=== PATIENT | male | born 1960 | race Caucasian/White ===

== ENCOUNTER 2024-04-12 10:33 | Emergency (ER) | payer BC, SELFPAY ==
[2024-04-12] VITALS (7 sets, daily range): BP systolic 140–159; BP diastolic 78–93
--- NOTE | 2024-04-12 11:37 | ED.GENMED ---
History of Present Illness
General
Chief Complaint: Chest Pain
Source: patient
Time Seen by Provider: 04/12/24 11:09
Travel History
Have you had any contact with someone who has COVID-19?: No
Do you have any symptoms of coronavirus? Fever > 100 degrees, chills, cough, shortness of breath, sore throat, loss of taste or smell, muscle aches, or headache?: No
History of Present Illness
History of Present Illness:
64-year-old male with history of A-fib/flutter status post ablation, CAD and recurrent pneumonia presents with onset of cough and hemoptysis with chest pain or shortness of breath starting yesterday getting worse today. He is not currently
anticoagulated. He denies fevers or chills. He states this feels similar to his prior pneumonia that he had in the past but the pain and shortness of breath is new. He is followed by pulmonology here as well as cardiology [facility]. He notes a recent car trip back and forth to [place]. No leg swelling or calf pain. No abdominal pain nausea or vomiting. No other complaints at this time
Past History
Past History
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
Social History
Tobacco: Smoker
Alcohol: Daily
Drug: None
Personal:
Living: with family
Family History
Family History: Other
Phy Exam
Physical Exam
Physical Exam:
General: Well-appearing male no acute respiratory distress
HEENT: Normocephalic atraumatic
Lungs: Clear no obvious wheeze or rales
Heart: Irregular rate and rhythm
Abdomen soft nontender nondistended no guarding or rebound
Extremities: No cyanosis or edema
Scores
[id number] Score for Afib Stroke Risk
Age in Years (65=0, 65-74=1, >/=75=2): <65
Sex (Female=+1): Male
Congestive Heart Failure History (Yes=+1): No
Hypertension History (Yes=+1): Yes
Stroke/TIA/Thromboembolism History (Yes=+2): No
Vascular Disease History (Yes=+1): Yes
Diabetes Mellitus (Yes=+1): No
Score: 2
Anticoagulation Recommendations: Recommend anticoagulation (as validated in nonvalvular fib)
Heart Score for Chest Pain Patients
STEMI patient?: No
History: Slightly or Non-Suspicious
ECG: Normal
Age: >45 - <65 years
Risk Factors: >/= 3 Risk Factors or History of CAD
Troponin: </= Normal Limit
Heart Score for Chest Pain Patients: 3
Heart Score Risk: 2.5% MACE over next 6 weeks
Course
Orders/Labs/Results
Orders:
Orders
04/12/24 10:36
Electrocardiogram (*1) Urgent
Reason for Study: Chest Pain
04/12/24 10:37
EKG- Treatment ONCE
04/12/24 11:37
CT Chest Pe Study Urgent
Comment:
Reason For Exam: chest pain, sob, hemoptysis
04/12/24 11:49
Complete Blood Count/With Diff Urgent
Comprehensive Metabolic Panel Urgent
NT-proBNP Urgent
Troponin I Urgent
Abnormal Lab Results
04/12/24
11:49
RBC 4.63 L 10^6/uL
(4.70-6.10)
MCH 32.6 H pg
(27.0-31.0)
MPV 10.7 H fL
(7.4-10.4)
Absolute Neuts (auto) 7.8 H 10^3/uL
(1.4-6.5)
Absolute Monos (auto) 1.1 H 10^3/uL
(0.1-0.6)
Lymphocytes % 13.1 L %
(20.5-51.1)
Monocytes % 10.2 H %
(1.7-9.3)
BUN 25 H mg/dl
(9-20)
04/12/24 11:49
04/12/24 11:49
Vital Signs
Initial and Last Documented VS:
Initial Vital Signs
Temp Pulse Resp BP Pulse Ox
97.7 F 56 20 156/85 97
04/12/24 10:40 04/12/24 10:40 04/12/24 10:40 04/12/24 10:40 04/12/24 10:40
Last Documented Vital Signs
Temp Pulse Resp BP Pulse Ox
97.7 F 108 23 159/84 96
04/12/24 10:40 04/12/24 15:00 04/12/24 15:15 04/12/24 15:00 04/12/24 15:15
MDM/Problems Addressed
Differential Diagnosis Includes:
Chest pain, shortness of breath hemoptysis. Question CAD versus PE versus pneumonia
Reviewed prior medical records. Patient does have complicated cardiac history as well as recurrent pneumonia. EKG shows atrial flutter with a variable block. Will check labs. CT PE study pending. Not hypoxic currently
*Critical Care Note
Total Time (30-74mins, 75-104mins- exclusive of procedures): Not Applicable
Update Note
Update Note:
PE study negative for pulmonary embolism but demonstrates groundglass opacity at the right base consider underlying pneumonia or pneumonitis. Of note, patient has atrial fibrillation/flutter on exam. His rate is around 110. Blood pressure 150s
over 90s. Patient has ability increase his beta-jason which he has discussed with his synthetic cloth binding cutter in the past. He will do this to help control his rate. He is not currently anticoagulated and [id number] 2 score is a 2. Will restart the
patient on Xarelto. Will start him on Levaquin and prednisone for his pneumonitis as well. Attempted to call the patient's synthetic cloth binding cutter at [facility] however there was no ability to talk to them directly. No indication for
admission to the hospital as he is in no acute distress. Discharged to follow-up with pulmonology and cardiology
ED Attending Note
-
Portions of this chart may have been created with voice recognition software.� Occasional wrong word or��sound alike� substitutions may have occurred due to the inherent limitations of voice recognition software.
Discharge Plan
Departure
Patient Disposition: Home (Routine Discharge)
Date of Disposition: 04/12/24
Time of Disposition: 15:46
Patient with high blood pressure during this ER visit?: No
Discharge Problem:
Pneumonia, Atrial fibrillation
Prescriptions:
New
levofloxacin 750 mg tablet
750 mg PO DAILY 7 Days Qty: 7 0RF
prednisone 20 mg tablet
40 mg PO DAILY 5 Days Qty: 10 0RF
Xarelto 20 mg tablet
20 mg PO DAILY Qty: 30 0RF
No Action
atorvastatin 40 mg Tablet
40 mg PO QPM
Patient Comments:
04/12/2024, last filled on 09/28/2023 for 90-day supply per pharmacy. Pt. states to be using his mother-in law's extra supply.
Theragen Tablet
1 tab PO DAILY
clopidogrel 75 mg Tablet
75 mg PO DAILY
aspirin 81 mg Tablet,Delayed Release (Dr/Ec)
81 mg PO DAILY
dorzolamide-timolol 22.3-6.8 mg/mL Drops
1 drp BOTH EYES BID
metoprolol succinate 25 mg Tablet Extended Release 24 Hr
25 mg PO Q12H
Visbiome 112.5 billion cell Capsule
1 cap PO DAILY
candesartan-hydrochlorothiazid 32-25 mg Tablet
1 tab PO DAILY
omega 0-rkv-hxe-fish oil [Fish Oil] 1,200 (144-216) mg Capsule
1 cap PO TID
Referrals:
Jacinta Kenyon MD [Family Provider] -
Activity Restrictions/Additional Instructions:
Stop aspirin. Start Xarelto and continue Plavix. Use Levaquin and prednisone as directed. Increase your beta-jason as needed to control your heart rate as you have done previously. Please follow-up with your insulation cutter and synthetic cloth binding cutter
closely. Return if needed otherwise
Interventions
Interventions:
*Risk Screen - Suicide Last Done: 04/12/24 10:40
*General Assessment Last Done: 04/12/24 10:40
*Neglect/Abuse Screening Last Done: 04/12/24 10:40
ED- Fall Risk Assessment Last Done: 04/12/24 10:56
*ED COVID-19 Vaccine History Last Done: 04/12/24 10:56
ED- Cardiac Assessment Last Done: 04/12/24 10:56
Discharge Date and Time
Print Language: AMHARIC
[2024-04-12 12:04] LABS: % Basophils 0.3 % (0-2); % Eosinophils 1.1 % (0-6); % Immature Granulocytes 0.4 % (0-0.5); % Lymphocytes 13.1 % (20.5-51.1); % Monocytes 10.2 % (1.7-9.3); % Neutrophils 74.9 % (42.2-75.2); Absolute Eosinophils 0.1 10^3/uL (0-0.7); Absolute Lymphocytes 1.4 10^3/uL (1.2-3.4); Absolute Monocytes 1.1 10^3/uL (0.1-0.6); Absolute Neutrophils 7.8 10^3/uL (1.4-6.5); Hemoglobin 15.1 g/dL (13.0-18.0); Mean Corpuscular Hgb 32.6 pg (27.0-31.0); Mean Corpuscular Volume 90.7 fL (80.0-94.0); Mean Platelet Volume 10.7 fL (7.4-10.4); Nucleated Red Blood Cells % 0 % (-); Platelet Count 144 10^3/uL (130-400); Red Blood Cell Count 4.63 10^6/uL (4.70-6.10); Red Cell Dist. Width 12.2 % (11.5-14.5); White Blood Cell Count 10.5 10^3/uL (4.8-10.8)
[2024-04-12 12:15] LABS: ALT (SGPT) 26 U/L (0-50); AST (SGOT) 25 U/L (17-59); Alkaline Phosphatase 62 U/L (38-126); Blood Urea Nitrogen 25 mg/dl (9-20); Calcium 9.6 mg/dl (8.4-10.2); Carbon Dioxide 29 mmol/L (22-30); Chloride 104 mmol/L (98-107); Glucose 99 mg/dl (70-99); Potassium 4.2 mmol/L (3.5-5.1); Sodium 138 mmol/L (135-145); Total Bilirubin 1.1 mg/dl (0.2-1.3); Total Protein 6.4 g/dl (6.3-8.2); eGFR > 60.00
[2024-04-12 12:26] LABS: NT-proBNP 1450 pg/ml; Troponin I 0.018 ng/ml
== END 2024-04-12 15:57 | disposition home or self-care (01) ==
LOC: EMR 10:33
PROVIDERS: Physician Assistant; EMERGENCY PHYSICIAN Student in an Organized Health Care Education/Training Program; FAMILY PHYSICIAN Family Medicine
DX: J18.9 Pneumonia, unspecified organism (principal); I48.91 Unspecified atrial fibrillation; I10 Essential (primary) hypertension; F17.200 Nicotine dependence, unspecified, uncomplicated; I25.10 Atherosclerotic heart disease of native coronary artery without angina pectoris
CPT/HCPCS: 99285; 71275; 80053; 83880; 84484; 85025; 93005; Q9967

== ENCOUNTER 2024-04-17 14:10 | Emergency (ER) | payer BC, SELFPAY ==
[2024-04-17 14:30] VITALS: BP 111/78
[2024-04-17 15:35] LABS: % Basophils 0.2 % (0-2); % Eosinophils 0.2 % (0-6); % Immature Granulocytes 0.9 % (0-0.5); % Lymphocytes 12.8 % (20.5-51.1); % Monocytes 6.4 % (1.7-9.3); % Neutrophils 79.5 % (42.2-75.2); Absolute Immature Granulocytes 0.1 10^3/uL (0-0.05); Absolute Lymphocytes 1.2 10^3/uL (1.2-3.4); Absolute Monocytes 0.6 10^3/uL (0.1-0.6); Absolute Neutrophils 7.4 10^3/uL (1.4-6.5); Hematocrit 39.3 % (39.0-52.0); Hemoglobin 14.4 g/dL (13.0-18.0); Mean Corp Hgb Conc. 36.6 g/dL (33.0-37.0); Mean Corpuscular Hgb 32.4 pg (27.0-31.0); Mean Corpuscular Volume 88.3 fL (80.0-94.0); Mean Platelet Volume 10.8 fL (7.4-10.4); Nucleated Red Blood Cells % 0 % (-); Platelet Count 145 10^3/uL (130-400); Red Blood Cell Count 4.45 10^6/uL (4.70-6.10); Red Cell Dist. Width 12.4 % (11.5-14.5); White Blood Cell Count 9.3 10^3/uL (4.8-10.8)
[2024-04-17 15:46] LABS: ALT (SGPT) 46 U/L (0-50); AST (SGOT) 33 U/L (17-59); Albumin 3.8 g/dl (3.5-5.0); Alkaline Phosphatase 58 U/L (38-126); Blood Urea Nitrogen 34 mg/dl (9-20); Calcium 10.3 mg/dl (8.4-10.2); Carbon Dioxide 27 mmol/L (22-30); Chloride 103 mmol/L (98-107); Glucose 107 mg/dl (70-99); Potassium 3.9 mmol/L (3.5-5.1); Sodium 137 mmol/L (135-145); Total Bilirubin 0.6 mg/dl (0.2-1.3); Total Protein 6.1 g/dl (6.3-8.2); eGFR > 60.00
[2024-04-17 15:56] LABS: Troponin I 0.033 ng/ml
--- NOTE | 2024-04-17 15:58 | ED.GENMED ---
History of Present Illness
General
Chief Complaint: Chest Pain
Time Seen by Provider: 04/17/24 15:58
Travel History
Have you had any contact with someone who has COVID-19?: No
Do you have any symptoms of coronavirus? Fever > 100 degrees, chills, cough, shortness of breath, sore throat, loss of taste or smell, muscle aches, or headache?: No
History of Present Illness
History of Present Illness:
HPI: Patient presents bilateral arm heaviness. Sometimes his symptoms worsen with exertion. He does have some chest discomfort as well. He was diagnosed with pneumonia about 5 days ago and just finished Levaquin and prednisone. He has a history
of A-fib/flutter on Xarelto and aspirin/Plavix. He has been taking metoprolol 25 mg twice daily. He no longer sees cardiology here but used to see Dr. Masno. Most of his cardiac care is obtained at [facility]. He reportedly had a cardioversion a few
months ago.
EXAM:
GENERAL: Well appearing in no distress
HEENT: Moist oral mucosa
CARDIOVASCULAR: No murmurs, tachycardic heart rate, irregular rhythm, No chest wall tenderness
PULMONARY: No respiratory distress, breath sounds are clear and equal
ABDOMEN: Soft with no peritoneal signs, no tenderness
NEUROLOGIC: Excellent strength all extremities, no coordination deficits
PSYCHIATRIC: Appropriate mental status, normal insight and judgement
EXTREMITIES: Nontender, no edema, moves all extremities equally
SKIN: No rash, no lesions
TIME OF INITIAL ENCOUNTER: 4:10 PM
NUMBER AND COMPLEXITY OF PROBLEMS ADDRESSED AT THE ENCOUNTER
� Chronic conditions affecting care: A-fib/flutter, CAD without history of [place]�states he had a 100% RCA lesion that was stented in September and another vessel had a 30%.
� Acute Exacerbation and/or Progression of Chronic Illness: This is an acute problem
� Differential Diagnosis includes: ACS, pneumonia, PE was just recently ruled out, rapid atrial fibrillation
AMOUNT AND/OR COMPLEXITY OF DATA TO BE REVIEWED AND ANALYZED
� I performed an independent evaluation of and my interpretation is:
EKG: Atrial fibrillation/flutter rate of 126, normal axis
CT:
X-rays: Chest x-ray suggest bilateral opacities
Laboratory Studies: Troponin 0.033, calcium 10.3, unremarkable CBC
Other:
� Review of other/old records: I reviewed recent studies. The patient was seen here 5 days ago and at that time had a troponin of 0.018 the patient had a PE study which was negative for PE 5 days ago and groundglass opacities at
the right base was noted. I also reviewed records�the patient had unsuccessful PCI on 02/26/2022.
� Clinical information was obtained by an independent historian: Spoke with the bedside
� Prescriptions/Medications Considered but not given: Considered Cardizem drip
� Further testing considered but not performed: Offered admission for DOC cardioversion but he declined
RISK OF COMPLICATIONS AND/OR MORBIDITY OR MORTALITY OF PATIENT MANAGEMENT
� Social determinants of health affecting care: Lives at home
� Discussion with other providers:
� Escalation of care including admission/observation vs risk of discharge considered: The patient arrived in rapid A-fib/flutter. He is taking 25 mg of metoprolol succinate twice daily. We did give him a dose of IV beta-jason
5 mg of metoprolol with some improvement of rate. I then gave higher dose oral metoprolol at 50 mg. First troponin 0.033 and second troponin 0.025. He primarily prefers to see the pipeline operator at [facility] and does not necessarily want [facility]
involved. We started talking about potential cardioversion however the patient tells me that he just resumed his Xarelto 5 days ago therefore I do not feel that he can safely be cardioverted at this time. We then talked about the possibly of
admission to the hospital for DOC cardioversion�he still prefers to go home at this time and wants to follow-up with his pipeline operator through [facility].
Past History
Past History
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
Social History
Tobacco: Smoker
Alcohol: Daily
Drug: None
Personal:
Living: with family
Family History
Family History: Other
Phy Exam
Physical Exam
Physical Exam:
See HPI
Scores
Heart Score for Chest Pain Patients
STEMI patient?: Not applicable
Course
Orders/Labs/Results
Orders:
Orders
04/17/24 14:12
EKG [Electrocardiogram (*1)] Urgent
Reason for Study: Chest Pain
EKG- Treatment ONCE
04/17/24 14:54
Complete Blood Count/With Diff Urgent
Comprehensive Metabolic Panel Urgent
Troponin I Urgent
04/17/24 16:16
Metoprolol [Lopressor] 5 mg IV NOW STA
04/17/24 16:19
CR Chest - 2 Views Urgent
Comment:
Reason For Exam: cp
04/17/24 17:34
Troponin I Urgent
04/17/24 17:36
ECG [Electrocardiogram (*1)] Urgent
Reason for Study: Other
Other Reason for Exam: repeat ecg
04/17/24 17:37
EKG- Treatment ONCE
04/17/24 17:38
Metoprolol Xl [Toprol Xl] 50 mg PO NOW STA
Abnormal Lab Results
04/17/24
14:54
RBC 4.45 L 10^6/uL
(4.70-6.10)
MCH 32.4 H pg
(27.0-31.0)
MPV 10.8 H fL
(7.4-10.4)
Abs Immat Gran (auto) 0.1 H 10^3/uL
(0-0.05)
Absolute Neuts (auto) 7.4 H 10^3/uL
(1.4-6.5)
Immature Gran % 0.9 H %
(0-0.5)
Neutrophils % 79.5 H %
(42.2-75.2)
Lymphocytes % 12.8 L %
(20.5-51.1)
BUN 34 H mg/dl
(9-20)
Glucose 107 H mg/dl
(70-99)
Calcium 10.3 H mg/dl
(8.4-10.2)
Total Protein 6.1 L g/dl
(6.3-8.2)
04/17/24 14:54
04/17/24 14:54
Vital Signs
Initial and Last Documented VS:
Initial Vital Signs
Temp Pulse Resp BP Pulse Ox
97.9 F 71 18 111/78 99
04/17/24 14:30 04/17/24 14:30 04/17/24 14:30 04/17/24 14:30 04/17/24 14:30
Last Documented Vital Signs
Temp Pulse Resp BP Pulse Ox
97.9 F 142 17 120/97 97
04/17/24 14:30 04/17/24 18:15 04/17/24 18:15 04/17/24 17:31 04/17/24 18:15
*Critical Care Note
Total Time (30-74mins, 75-104mins- exclusive of procedures): Not Applicable
ED Attending Note
-
Portions of this chart may have been created with voice recognition software.� Occasional wrong word or��sound alike� substitutions may have occurred due to the inherent limitations of voice recognition software.
Discharge Plan
Departure
Patient Disposition: Home (Routine Discharge)
Date of Disposition: 04/17/24
Time of Disposition: 18:57
Patient with high blood pressure during this ER visit?: Yes
Discharge Problem:
Atrial fibrillation with rapid ventricular response
Prescriptions:
No Action
atorvastatin 40 mg Tablet
40 mg PO QPM
Patient Comments:
Theragen Tablet
0.5 tab PO BID
clopidogrel 75 mg Tablet
75 mg PO DAILY
dorzolamide-timolol 22.3-6.8 mg/mL Drops
1 drp BOTH EYES BID
metoprolol succinate 25 mg Tablet Extended Release 24 Hr
25 mg PO Q12H
Visbiome 112.5 billion cell Capsule
1 cap PO DAILY
candesartan-hydrochlorothiazid 32-25 mg Tablet
1 tab PO DAILY
omega 4-pxh-lqk-fish oil [Fish Oil] 1,200 (144-216) mg Capsule
1 cap PO TID
levofloxacin 750 mg tablet
750 mg PO DAILY 7 Days Qty: 7 0RF
Patient Comments:
04/17/2024, filled on 04/12/2024 and instructed to take one tablet daily for 7 days; per pt., last dose is tomorrow (04/18/2024).
prednisone 20 mg tablet
40 mg PO DAILY 5 Days Qty: 10 0RF
Patient Comments:
04/17/2024, filled on 04/12/2024 and instructed to take 2 tablets daily for 5 days; last dose was taken today per pt.
Xarelto 20 mg tablet
20 mg PO DAILY Qty: 30 0RF
Referrals:
Jacinta Kenyno MD [Family Provider] -
Activity Restrictions/Additional Instructions:
Follow-up with your pipeline operator at 10. Pleat blood cell count is normal, your heart rate has varied from the 105 range to 140 range. We gave you a 5 mg dose of IV metoprolol and then an oral dose of 50 mg metoprolol. I recommend that you
increase the dosing at home to 50 mg of metoprolol twice daily. 2 cardiac blood test called troponin are negative.
Interventions
Interventions:
*Risk Screen - Suicide Last Done: 04/17/24 15:54
*General Assessment Last Done: 04/17/24 15:54
*Neglect/Abuse Screening Last Done: 04/17/24 15:54
ED- Fall Risk Assessment Last Done: 04/17/24 15:54
ED- Cardiac Assessment Last Done: 04/17/24 15:54
Discharge Date and Time
Print Language: [place]IZ[place]
[2024-04-17] MEDS: LOPRESSOR 5 MG IV (16:27)
[2024-04-17 17:31] VITALS: BP 120/97
[2024-04-17] MEDS: TOPROL XL 50 MG PO (17:42)
[2024-04-17 18:06] LABS: Troponin I 0.025 ng/ml
[2024-04-17 19:00] VITALS: BP 131/97
== END 2024-04-17 21:31 | disposition home or self-care (01) ==
LOC: EMR 14:10
PROVIDERS: Emergency Medicine; EMERGENCY PHYSICIAN Emergency Medicine; FAMILY PHYSICIAN Family Medicine
DX: R07.89 Other chest pain (principal); I48.91 Unspecified atrial fibrillation; J18.9 Pneumonia, unspecified organism; I10 Essential (primary) hypertension; I48.92 Unspecified atrial flutter; I25.10 Atherosclerotic heart disease of native coronary artery without angina pectoris; F17.200 Nicotine dependence, unspecified, uncomplicated; Z95.5 Presence of coronary angioplasty implant and graft; Z79.899 Other long term (current) drug therapy; Z79.01 Long term (current) use of anticoagulants; Z79.02 Long term (current) use of antithrombotics/antiplatelets; Z79.82 Long term (current) use of aspirin
CPT/HCPCS: 99284; 96374; 71046; 80053; 84484; 85025; 93005

== ENCOUNTER 2024-04-19 12:10 | Inpatient (IN) | payer BC, SELFPAY ==
[2024-04-19] VITALS (11 sets, daily range): BP systolic 122–142; BP diastolic 76–107; BMI 31.4; BMI 30.7
--- NOTE | 2024-04-19 07:36 | ED.GENMED ---
History of Present Illness
<Elias Pizano PA-C - Last Filed: 04/19/24 12:46>
General
Chief Complaint: Breathing Problem
Source: patient and records
Time Seen by Provider: 04/19/24 07:10
Travel History
Have you had any contact with someone who has COVID-19?: No
Do you have any symptoms of coronavirus? Fever > 100 degrees, chills, cough, shortness of breath, sore throat, loss of taste or smell, muscle aches, or headache?: No
History of Present Illness
History of Present Illness:
64-year-old female with past medical history of atrial fibrillation, CAD, hypertension, cryptogenic pneumonia presenting to the emergency department for the third visit in 1 week for evaluation of continued shortness of breath, cough, hemoptysis and
palpitations. On patient's first visit to the ER about 1 week ago he had a CTA of the chest for the hemoptysis which was negative for PE but did show a right-sided interstitial pneumonia. Patient was treated with Levaquin which she states he
completed but without any relief of symptoms. At that time he was also noted to be in atrial fibrillation with RVR and was restarted on his Xarelto as well as metoprolol 25 mg p.o. twice daily. Due to persistent palpitations patient presented back
a few days later where he was treated with IV Lopressor and p.o. metoprolol at 50 mg with improvement of patient's heart rate and was advised to follow-up with his security architect at [facility]. Patient states that he had been in
contact with his security architect however they were unable to see him until May. Last night patient reports that he felt more short of breath prompting him to want to come back to the ER this morning. Patient reports that on the way to the ER he did
have some further blood-tinged sputum. Denies any fevers, chills, rigors, lower extremity edema, chest pain, diaphoresis or any other concerns. He reports that he has been taking his Xarelto as directed since his first visit to the ER.
Past History
<Elias Pizano PA-C - Last Filed: 04/19/24 12:46>
Past History
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
ED Past Surgical History: Cardiac and Orthopedic
Social History
Tobacco: Smoker
Alcohol: Daily
Drug: None
Personal:
Living: with family
Family History
Family History: Other
Review of Systems
<RADHA Acosta Last Filed: 04/19/24 12:46>
Review of Systems
All Other Systems: ROS reviewed and negative except as documented in HPI and ROS
Phy Exam
<Elias Pizano PA-C - Last Filed: 04/19/24 12:46>
Physical Exam
Physical Exam:
GENERAL: Alert , in no apparent distress
Head: NCAT
EYE: Clear conjunctiva
NECK: Supple
ENT: o/p clr, mmm.
CARDIAC: Irregularly irregular, tachycardic
LUNGS: Faint wheeze at the right base, no acute respiratory distress, speaking full sentences, no dyspnea
ABDOMEN: Soft, without focal tenderness, no r/g, no cvat
NEUROLOGICAL: Alert and oriented
SKIN: Warm and dry, skin intact.
MUSCULOSKELETAL: No edema, well perfused.
PSYCH: Normal and appropriate interaction.
Scores
<RADHA Acosta Last Filed: 04/19/24 12:46>
Heart Failure Risk
Heart Failure Risk Score: Not Applicable
Heart Score for Chest Pain Patients
STEMI patient?: Not applicable
Withdrawal Assessment of Alcohol
Withdrawal Assessment Completed?: Not applicable
Course
<RADHA Acosta Last Filed: 04/19/24 12:46>
Orders/Labs/Results
Orders:
Orders
04/19/24 07:04
Electrocardiogram (*1) Urgent
Reason for Study: Chest Pain
EKG- Treatment ONCE
04/19/24 07:33
Diltiazem HCl [Cardizem] 10 mg IV NOW STA
04/19/24 07:35
CefTRIAXone [Rocephin] 1,000 mg IV NOW STA
Doxycycline [Vibramycin] 100 mg PO NOW STA
04/19/24 07:45
Diltiazem 125 mg/125 ml Nss [Cardizem] 125 mg in 125 ml IV PER PROTOCOL
Initial dose in mg/hr, then titrate:: 5
Titrate to keep:: Heart rate 80-100 bpm
Titrate by mg/hr:: 5 mg/hr
Frequency of titrations (minutes):: 15
Maximum dose in mg/hr:: 15
04/19/24 07:50
COVID-19 Antigen Urgent
Source: Nasal Swab
Complete Blood Count/With Diff Urgent
Comprehensive Metabolic Panel Urgent
Lactic Acid Q4H
Comment: CANCEL 2nd LACTIC ACID IF 1st LACTIC ACID IS LESS THAN 2
NT-proBNP Urgent
Troponin I Urgent
Blood Culture Q30M
LONI Source: Blood/Venous
Specimen Description:
04/19/24 08:10
Blood Culture Q30M
LONI Source: Blood/Venous
Specimen Description:
Legionella Urinary Antigen Urgent
LONI Source: Urine
Specimen Description:
04/19/24 08:43
Electrocardiogram (*1) Urgent
Reason for Study: Other
Other Reason for Exam: rhythm change
04/19/24 08:44
EKG- Treatment ONCE
04/19/24 11:50
Metoprolol Xl [Toprol Xl] 50 mg PO NOW STA
04/19/24 11:51
Admit/Transfer Patient As Directed
Co-Sign Provider:
Level of Care: Inpatient admission
Assign to:: Telemetry
Physician / Group: karol wright
Diagnosis: SOB, rapid fib
Reason for Telemetry: Medication for Arrhythmia
Date to Stop Telemetry: 04/21/24
Time to Stop Telemetry: 11:00
Reason for Hospitalization: SOB, rapid fib
Expected length of stay greater than two midnights?: Yes
ELOS- Estimated Length of Stay in days: 3
I certify the patient meets the requirements for IP care: Yes
04/19/24 11:53
Code Status As Directed
Resuscitation Status: Full Code
04/19/24 12:00
MethylPREDNISolone. [Solu-Medrol] 500 mg 0.9% Sodium Chloride 100 ml [Nss] 100 ml IV Q24H
04/21/24 11:00
DC Protocol for Telemetry ONCE
Abnormal Lab Results
04/19/24
07:50
WBC 11.3 H 10^3/uL
(4.8-10.8)
RBC 4.41 L 10^6/uL
(4.70-6.10)
MCH 32.0 H pg
(27.0-31.0)
MPV 10.5 H fL
(7.4-10.4)
Abs Immat Gran (auto) 0.1 H 10^3/uL
(0-0.05)
Absolute Neuts (auto) 7.9 H 10^3/uL
(1.4-6.5)
Absolute Monos (auto) 1.2 H 10^3/uL
(0.1-0.6)
Immature Gran % 0.8 H %
(0-0.5)
Lymphocytes % 17.8 L %
(20.5-51.1)
Monocytes % 10.5 H %
(1.7-9.3)
BUN 25 H mg/dl
(9-20)
ALT 73 H U/L
(0-50)
Total Protein 5.8 L g/dl
(6.3-8.2)
Albumin 3.4 L g/dl
(3.5-5.0)
04/19/24 07:50
04/19/24 07:50
Vital Signs
Initial and Last Documented VS:
Initial Vital Signs
Temp Pulse Resp BP Pulse Ox
97.7 F 61 22 132/88 96
04/19/24 07:01 04/19/24 07:01 04/19/24 07:01 04/19/24 07:01 04/19/24 07:01
Last Documented Vital Signs
Temp Pulse Resp BP Pulse Ox
97.7 F 116 18 139/82 96
04/19/24 07:01 04/19/24 12:33 04/19/24 12:15 04/19/24 12:33 04/19/24 12:15
Hotel Assistant General Manager consulted with Physician
Hotel Assistant General Manager consulted with physician?: Yes
Name of Physician Consulted: Rosanna
<Baldomero Marte, DO - Last Filed: 04/19/24 09:07>
Orders/Labs/Results
Orders:
Orders
04/19/24 07:04
Electrocardiogram (*1) Urgent
Reason for Study: Chest Pain
EKG- Treatment ONCE
04/19/24 07:33
Diltiazem HCl [Cardizem] 10 mg IV NOW STA
04/19/24 07:35
CefTRIAXone [Rocephin] 1,000 mg IV NOW STA
Doxycycline [Vibramycin] 100 mg PO NOW STA
04/19/24 07:45
Diltiazem 125 mg/125 ml Nss [Cardizem] 125 mg in 125 ml IV PER PROTOCOL
Initial dose in mg/hr, then titrate:: 5
Titrate to keep:: Heart rate 80-100 bpm
Titrate by mg/hr:: 5 mg/hr
Frequency of titrations (minutes):: 15
Maximum dose in mg/hr:: 15
04/19/24 07:50
COVID-19 Antigen Urgent
Source: Nasal Swab
Complete Blood Count/With Diff Urgent
Comprehensive Metabolic Panel Urgent
Lactic Acid Q4H
Comment: CANCEL 2nd LACTIC ACID IF 1st LACTIC ACID IS LESS THAN 2
NT-proBNP Urgent
Troponin I Urgent
Blood Culture Q30M
LONI Source: Blood/Venous
Specimen Description:
04/19/24 08:10
Blood Culture Q30M
LONI Source: Blood/Venous
Specimen Description:
Legionella Urinary Antigen Urgent
LONI Source: Urine
Specimen Description:
04/19/24 08:43
Electrocardiogram (*1) Urgent
Reason for Study: Other
Other Reason for Exam: rhythm change
04/19/24 08:44
EKG- Treatment ONCE
04/19/24 11:50
Metoprolol Xl [Toprol Xl] 50 mg PO NOW STA
04/19/24 11:51
Admit/Transfer Patient As Directed
Co-Sign Provider:
Level of Care: Inpatient admission
Assign to:: Telemetry
Physician / Group: karol wright
Diagnosis: SOB, rapid fib
Reason for Telemetry: Medication for Arrhythmia
Date to Stop Telemetry: 04/21/24
Time to Stop Telemetry: 11:00
Reason for Hospitalization: SOB, rapid fib
Expected length of stay greater than two midnights?: Yes
ELOS- Estimated Length of Stay in days: 3
I certify the patient meets the requirements for IP care: Yes
04/19/24 11:53
Code Status As Directed
Resuscitation Status: Full Code
04/19/24 12:00
MethylPREDNISolone. [Solu-Medrol] 500 mg 0.9% Sodium Chloride 100 ml [Nss] 100 ml IV Q24H
04/21/24 11:00
DC Protocol for Telemetry ONCE
Abnormal Lab Results
04/19/24
07:50
WBC 11.3 H 10^3/uL
(4.8-10.8)
RBC 4.41 L 10^6/uL
(4.70-6.10)
MCH 32.0 H pg
(27.0-31.0)
MPV 10.5 H fL
(7.4-10.4)
Abs Immat Gran (auto) 0.1 H 10^3/uL
(0-0.05)
Absolute Neuts (auto) 7.9 H 10^3/uL
(1.4-6.5)
Absolute Monos (auto) 1.2 H 10^3/uL
(0.1-0.6)
Immature Gran % 0.8 H %
(0-0.5)
Lymphocytes % 17.8 L %
(20.5-51.1)
Monocytes % 10.5 H %
(1.7-9.3)
BUN 25 H mg/dl
(9-20)
ALT 73 H U/L
(0-50)
Total Protein 5.8 L g/dl
(6.3-8.2)
Albumin 3.4 L g/dl
(3.5-5.0)
04/19/24 07:50
04/19/24 07:50
Vital Signs
Initial and Last Documented VS:
Initial Vital Signs
Temp Pulse Resp BP Pulse Ox
97.7 F 61 22 132/88 96
04/19/24 07:01 04/19/24 07:01 04/19/24 07:01 04/19/24 07:01 04/19/24 07:01
Last Documented Vital Signs
Temp Pulse Resp BP Pulse Ox
97.7 F 116 18 139/82 96
04/19/24 07:01 04/19/24 12:33 04/19/24 12:15 04/19/24 12:33 04/19/24 12:15
<Elias Pizano PA-C - Last Filed: 04/19/24 12:46>
MDM/Problems Addressed
Differential Diagnosis Includes:
Pneumonia, cardiac dysrhythmia/A-fib, CHF, I do not have concern for PE given negative CTA 1 week ago, cardiomyopathy
MDM/Problems Addressed:
64-year-old male presenting back to the emergency department for third visit for same symptoms. Treated initially with antibiotics and steroid as well as placed back on Xarelto for his A-fib. Patient with minimal relief so presented back to the
emergency department 5 days later found to be in atrial fibrillation with RVR. Treated with IV and oral medications here with good response however patient remains symptomatic prompting him to come back to the ER today. Patient was found to be in
A-fib with a rate between around 110 to 125 bpm. Oxygen saturation is within normal limits. Based off this being patient's third visit within the week for the same symptoms I discussed with patient that I inpatient management may be the best way
to proceed. Will treat his A-fib with Cardizem bolus and drip. Rocephin and doxycycline ordered for continued pneumonia. Patient follows with soda fountain clerk Dr. Sterling here at this facility. He may need consultation from both cardiology and
pulmonology and potentially infectious disease based off his history of cryptococcal pneumonia which did not seem to improve with Levaquin. Patient does seem okay with admission.
Chronic conditions affecting care: Arrhythmia
Acute Exacerbation and/or Progression of Chronic Illness: Arrhythmia
<Elias Pizano PA-C - Last Filed: 04/19/24 12:46>
*Pulse Oximetry
Patient hypoxic: no
*EKG
Interpreted by ED Provider?: Yes
Comparison EKG: no changes
Heart Rate: 119
Rate: tachycardiac
Rhythm: a-fib
[place]: normal axis
Ischemia: no ischemia
*Grab Jack Man Interpretation
Rate: tachycardiac
Rhythm: a-fib
*Critical Care Note
Total Time (30-74mins, 75-104mins- exclusive of procedures): Not Applicable
Data Reviewed
Review of Other/Old Records Reveals: Labs, Records and Radiology Studies
Source: patient, records and spouse
<Elias Pizano PA-C - Last Filed: 04/19/24 12:46>
Patient Management
Discussion with other providers: Hospitalist
Escalation/DeEscalation of care consider admission/obs:
Patient's rate controlled with Cardizem infusion. His BNP is nearly doubled from his last visit which could be contributing to some of his symptomatology. Given this is patient's third visit to the ER combined with being much improved on Cardizem
infusion will admit to hospitalist service for continued evaluation and treatment. They can consult pulm/cardiology as needed.
ED Attending Note
<Elias Pizano PA-C - Last Filed: 04/19/24 12:46>
-
Portions of this chart may have been created with voice recognition software.� Occasional wrong word or��sound alike� substitutions may have occurred due to the inherent limitations of voice recognition software.
<Baldomero Marte DO - Last Filed: 04/19/24 09:07>
ED Attending Note
Patient seen and examined by attending physician: Yes
I performed the substantive portion of visit, reviewed & personally made and approve the management plan that is documented in note by myself or DARRON.: Yes
ED Attending Note:
Patient is a 64-year-old male with a history of atrial fibs/flutter and has been seen in the emergency department recently for the same. Patient has a history also of cryptogenic pneumonia. Patient's had increasing shortness of breath, orthopnea
and inability to sleep due to shortness of breath. Patient has had ablation previously. Patient has been cardioverted. Patient started on Xarelto approximately week ago. Patient has remained in atrial fibrillation. On physical exam patient does
not appear to be in significant distress but lungs are coarse with scattered Rales. Patient has no cyanosis or edema. Heart is tachycardic and irregular regular. Believe the patient started to decompensate from prolonged atrial fibrillation and
losing the 10 to 15% of his cardiac output. In addition has a history of pulmonary disease. Patient probably needs to have a DOC to determine clot status and if possible cardioversion. This is in addition to more immediately dealing with the
respiratory issues and rate control.
Discharge Plan
Departure
Patient Disposition: Admit
Date of Disposition: 04/19/24
Time of Disposition: 08:32
Presentation/result/management discussed w/ accepting MD/DO: Hospitalist
Discharge Problem:
Atrial fibrillation, Heart failure, Pneumonia
Interventions
Interventions:
*Risk Screen - Suicide Last Done: 04/19/24 07:01
*General Assessment Last Done: 04/19/24 07:01
*Neglect/Abuse Screening Last Done: 04/19/24 07:01
ED- Cardiac Assessment Last Done: 04/19/24 12:36
ED- Pulmonary Assessment Last Done: 04/19/24 07:59
[2024-04-19 08:03] LABS: % Basophils 0.2 % (0-2); % Eosinophils 0.5 % (0-6); % Immature Granulocytes 0.8 % (0-0.5); % Lymphocytes 17.8 % (20.5-51.1); % Monocytes 10.5 % (1.7-9.3); % Neutrophils 70.2 % (42.2-75.2); Absolute Eosinophils 0.1 10^3/uL (0-0.7); Absolute Immature Granulocytes 0.1 10^3/uL (0-0.05); Absolute Monocytes 1.2 10^3/uL (0.1-0.6); Absolute Neutrophils 7.9 10^3/uL (1.4-6.5); Hematocrit 39.7 % (39.0-52.0); Hemoglobin 14.1 g/dL (13.0-18.0); Mean Corp Hgb Conc. 35.5 g/dL (33.0-37.0); Mean Platelet Volume 10.5 fL (7.4-10.4); Nucleated Red Blood Cells % 0 % (-); Platelet Count 171 10^3/uL (130-400); Red Blood Cell Count 4.41 10^6/uL (4.70-6.10); Red Cell Dist. Width 12.5 % (11.5-14.5); White Blood Cell Count 11.3 10^3/uL (4.8-10.8)
[2024-04-19] MEDS: ROCEPHIN 1000 MG IV (08:18)
[2024-04-19] MEDS: CARDIZEM 10 MG IV (08:18)
[2024-04-19] MEDS: VIBRAMYCIN 100 MG PO (08:18)
[2024-04-19 08:20] LABS: ALT (SGPT) 73 U/L (0-50); AST (SGOT) 36 U/L (17-59); Albumin 3.4 g/dl (3.5-5.0); Alkaline Phosphatase 55 U/L (38-126); Blood Urea Nitrogen 25 mg/dl (9-20); Calcium 9.2 mg/dl (8.4-10.2); Carbon Dioxide 27 mmol/L (22-30); Chloride 104 mmol/L (98-107); Estimated Creatinine Clearance 99 ml/min; Glucose 99 mg/dl (70-99); Potassium 3.9 mmol/L (3.5-5.1); Sodium 136 mmol/L (135-145); Total Bilirubin 0.7 mg/dl (0.2-1.3); Total Protein 5.8 g/dl (6.3-8.2); eGFR > 60.00
[2024-04-19 08:21] LABS: COVID-19 Antigen Negative (Negative)
[2024-04-19] MEDS: CARDIZEM 125 IV (08:25)
[2024-04-19 08:26] LABS: NT-proBNP 2700 pg/ml; Troponin I 0.028 ng/ml
--- NOTE | 2024-04-19 11:51 | HPS.HSE ---
Family Physician
-
Family Physician: Jacinta Kenyon
Chief Complaint
-
Shortness of breath
History of Present Illness
64-year-old male with a past medical history of cryptogenic pneumonia, paroxysmal atrial fibrillation on Xarelto, CAD, and hypertension presents with worsening shortness of breath. This is his third ER visit in 1 week. Patient was seen on 04/12,
04/17, and today for shortness of breath. He had a chest CT done on 04/12, which shows interstitial right-sided pneumonia. He was discharged on Levaquin and steroids, which he took without improvement. He also was back into rapid atrial
fibrillation, and resumed on Xarelto and metoprolol. He was seen again in the ED on 04/17 for chest pain, and was found to have a fast heart rate. His metoprolol succinate was increased, he was discharged again. Patient reports finishing his
steroids 2 days ago. He feels that his shortness of breath has been noticeably worse overnight, and came back to the ER this morning. Associated symptoms include hemoptysis. He denies fever. No nausea, no vomiting.
Medical History
Past Medical History
Past Medical History: Reports Other (see HPI)
Additional Past Medical History:
atrial fibrillation, CAD, hypertension, cryptogenic pneumonia, myopericarditis
Past Surgical History: Reports Other (see HPI)
Additional Past Surgical History:
Tonsilectomy and Other (Bilateral knee surgeries, PVI ablation 2011, 2012 and 2018, a flutter ablation 2011, colonoscopy)
Social History
Tobacco: Other (cigar)
Alcohol: Occasional
Personal:
Living: With Family
Family History
Family History: Not pertinent
Allergies / Home Medications
Allergies reflects when Allergies were last updated in [employer].
Home Medications with original date entered in [employer]
Allergy/Medication List:
Allergies
Allergy/AdvReac Type Severity Reaction Status Date / Time
No Known Allergies Allergy Verified 06/08/22 20:09
Home Medications
fish oil-dha-epa 1,200 mg-144 mg-216 mg capsule 1 ea PO TID Supplement 07/21/17
multivitamin 1 ea PO DAILY Supplement 10/13/18
candesartan 32 mg-hydrochlorothiazide 25 mg tablet 1 ea PO DAILY Blood pressure 08/18/21
rivaroxaban 20 mg tablet (Xarelto) 20 mg PO DAILY Blood clot prevention/tx 08/18/21
timolol maleate 0.5 % eye gel forming solution (Timoptic-XE) 1 drp BOTH EYES DAILY Eye condition 08/18/21
diltiazem HCl 180 mg capsule,extended release 24 hr 360 mg PO DAILY #60 caps 08/25/21
atorvastatin 40 mg tablet 40 mg PO QPM #90 tabs 02/27/22
isosorbide mononitrate 30 mg tablet,extended release 24 hr 30 mg PO DAILY #90 tabs 02/27/22
metoprolol succinate 25 mg tablet,extended release 24 hr 25 mg PO DAILY #90 tabs 02/27/22
Review of Systems
-
A 12 point ROS was completed and negative except as noted: Yes
Physical Exam
Vital Signs
Vital Signs
Temp Pulse Resp BP Pulse Ox
97.7 F 89 28 132/88 95
04/19/24 07:01 04/19/24 10:30 04/19/24 10:30 04/19/24 10:00 04/19/24 10:30
Physical Exam
General: Well Developed, Well Nourished and No Apparent Distress
HEENT: NormoCephalic, Anicteric, Moist mucous membranes and Atraumatic
Respiratory: Crackles (Right basilar crackles)
Cardiac: Irregular Rhythm and Tachycardia
GI: Soft, Non Tender, Non Distended and Normal Bowel Sounds
Musculoskeletal: No Clubbing, No Cyanosis and No Edema
Skin: Warm and Dry
Neuro: Awake, Alert and Oriented
Laboratory Results
-
04/19/24 07:50
04/19/24 07:50
Laboratory Results
Lactic Acid 1.0 mmol/L (0.7-2.0) 04/19/24 07:50
Total Bilirubin 0.7 mg/dl (0.2-1.3) 04/19/24 07:50
AST 36 U/L (17-59) 04/19/24 07:50
ALT 73 U/L (0-50) H 04/19/24 07:50
Alkaline Phosphatase 55 U/L (38-126) 04/19/24 07:50
Troponin I 0.028 ng/ml 04/19/24 07:50
Impression/Plan
-
HPI: 64-year-old male with a past medical history of cryptogenic pneumonia, paroxysmal atrial fibrillation on Xarelto, CAD, and hypertension presents with worsening shortness of breath. This is his third ER visit in 1 week. Patient was seen on
04/12, 04/17, and today for shortness of breath. He had a chest CT done on 04/12, which shows interstitial right-sided pneumonia. He was discharged on Levaquin and steroids, which he took without improvement. He also was back into rapid atrial
fibrillation, and resumed on Xarelto and metoprolol. He was seen again in the ED on 04/17 for chest pain, and was found to have a fast heart rate. His metoprolol succinate was increased, he was discharged again. Patient reports finishing his
steroids 2 days ago. He feels that his shortness of breath has been noticeably worse overnight, and came back to the ER this morning. Associated symptoms include hemoptysis. He denies fever. No nausea, no vomiting.
#Concern for cryptogenic pneumonia
#Hemoptysis
#Shortness of breath
Check sputum culture and Gram stain
Patient has completed a course of levofloxacin, and also received Rocephin/azithromycin in the ED
Hold off on further antibiotics for now
Treat with Solu-Medrol 500 mg IV daily, bronchodilators, consult pulmonology
#Rapid atrial fibrillation
S/p PVI 2011, 2012 and 2017
S/p post cardioversion 05/2018
Increased metoprolol succinate to 100 mg twice daily, continue Xarelto
#Coronary artery disease
Continue Plavix, Xarelto, statin
#History of benign essential hypertension
Hold home candesartan/hydrochlorothiazide in case we need to go up on more rate controlling medications for his rapid atrial fibrillation
DVT prophylaxis�Xarelto
Full code
Total time spent to see the patient on the floor, examine the patient, review data and lab results, discuss treatment plan with patient, nursing staff around 75 minutes.
[2024-04-19] MEDS: TOPROL XL 50 MG PO (12:33)
[2024-04-19] MEDS: LOPRESSOR 5 MG IV (12:59)
[2024-04-19] MEDS: SOLU-MEDROL 108 MG IV (13:35)
--- NOTE | 2024-04-19 16:14 | CON.PUL ---
Addendum entered and electronically signed by Cy Zavala MD 04/19/24 20:53:
I will also check connective tissue workup for completeness sake, although his prior CTD/rheumatologic workup has been negative.
Original Note:
Consultation
Consultation Request
Date/Time Consultation Requested: 04/19/2024 - 135
Date/Time Consultation Performed: 04/19/2024 - 1540
Requesting Provider: Dr. Munroe
Performing Provider: Dr. Zavala
Reason for Consultation: Cough, hemoptysis
Medical History
-
Chief Complaint: SOB + chest pain
History of Present Illness:
64-year-old male with a past medical history of A-fib on Xarelto, hypertension, history of pericarditis and COVID-19 who presents with SOB and chest pain that started about 2 weeks ago. On 04/12/2024 patient came to the ER with cough and hemoptysis
for 1 day. Hb was 10.5 that day. Symptoms began that morning with wheezing, shortness of breath and moderate amount of sputum with blood seen. He also had chest pain with tightness. CTA chest showed mild patchy GGO in the bases with a RLL 4-5 mm
nodule. He was tachycardic into the 110s, and was offered admission but he refused as his cardiology care is at [facility]. He was discharged home with 7-day course of Levaquin, 5-day course of 40 mg prednisone daily. He came back again to the ER 5
days later with arm heaviness and chest pain, was found to be in A-fib with RVR. Heart rate improved with IV Lopressor and increasing his metoprolol dose. Again he was offered admission for management with DOC with cardioversion but patient
refused. Now that he is back he is endorsing similar symptoms with SOB + chest pain. He is afebrile in the ER to 97.7 �F, heart rate labile between 60�116, he is breathing at 15-22 breaths/min, he was saturating 96% on room air and BP 132/88.
Labs showed leukocytosis to 11.3, Hb 14.1, absolute eosinophils are WNL at 100, troponin WNL at 0.028, proBNP 2700 (was 1450 on 04/12/2024), COVID-19 action negative, blood cultures were collected, and CXR showed no acute cardiopulmonary process. He
was started on Cardizem drip this morning due to rapid A-fib, and given Rocephin + doxycycline. Pulmonary service now consulted for additional management/recommendations.
Patient was seen and evaluated at bedside. He says that his main symptoms have been going on are shortness of breath with chest gurgling when he lays flat and has been causing marked disruptions to his sleep. He also has been having blood-tinged
sputum and this has been worsening. Today he feels like his blood-tinged sputum is minimal. He says that these SOB + chest gurgling symptoms have been occurring and then this is what triggered his A-fib to recur. He knows when he goes in A-fib
because he feels a chest heaviness. He says that he is otherwise in normal sinus rhythm. He denies any flu-like symptoms that occurred prior to arrival to the hospital. He also denies any nocturnal awakenings with shortness of breath. Denies any
recent sick contacts. He is not on chronic steroids and has been off it since October 2023/November 2023. He still smokes cigars occasionally but otherwise does not smoke cigarettes. Currently denies headache, abdominal pain, nausea, fevers or
chills.
Patient follows with us in the [facility] office with last visit on 10/09/[address] Sterling. He has a history of And was responsive to steroids in the past, underwent endobronchial biopsy in August 2021 showing reactive pneumocytes with organizing
fibrosis. RUL BAL was negative at that time for AFB and fungus. CT chest imaging at that time in August 2021 showed dense bilateral consolidative opacities. Prior rheumatological workup was negative. At that office visit however his symptoms
had recurred and he was started on prednisone at that time starting at 40 mg with plans to maintain prednisone for about a year. There was discussion about starting additional immunosuppression with CellCept versus Imuran if there is any future
recurrence of his cough. Of note he had ESR, CRP and ANCA vasculitis studies rechecked on 10/29/2023 which were all WNL. He also has a history of mild ARMEN diagnosed in 2019 and does not use PAP, and is advised to use positional therapy and weight
loss attempts. Last PFT in November 2021 showing no evidence of obstruction or restriction; there was mild gas exchange capacity defect with DLco: 64%.
PMHx: Hypertension, paroxysmal A-fib on Xarelto, history of pericarditis, history of COVID-19 (12/2022)
PSHx: Bilateral knee surgery, PVI (2012), tonsillectomy, ablation (2011), history of cardioversion
Past Medical History
Past Medical History: Other (Above as per HPI)
Past Surgical History: Other (Above as per HPI)
Social History
Tobacco: Former Smoker (Quit 2006 with 90-[id number]-xcxe history prior, smokes cigars)
Alcohol: Daily (5-8 nightly)
Drug: None
Personal:
Living: With Family
Employment: Employed
Family History
Family History: CAD (Father: History of CA; mother: History of CHF)
Allergies / Home Medications
Allergies
Allergy/AdvReac Type Severity Reaction Status Date / Time
No Known Allergies Allergy Verified 04/19/24 07:03
Home Medications
�Medication �Instructions �Recorded �Confirmed �Last Taken �Type
Lactobac no.2-Bifidobac no.1-S. 1 cap PO DAILY Gastrointestinal 04/12/24 04/19/24 04/19/24 History
thermo 112.5 billion cell capsule Issue
(Visbiome)
atorvastatin 40 mg tablet 40 mg PO QPM High Cholesterol 04/12/24 04/19/24 04/18/24 History
candesartan 32 1 tab PO DAILY Blood Pressure 04/12/24 04/19/24 04/19/24 History
mg-hydrochlorothiazide 25 mg tablet
clopidogrel 75 mg tablet 75 mg PO DAILY Blood Clot 04/12/24 04/19/24 04/19/24 History
Prevention/Tx
dorzolamide 22.3 mg-timolol 6.8 1 drp BOTH EYES BID Eye Condition 04/12/24 04/19/24 04/19/24 History
mg/mL eye drops
metoprolol succinate 25 mg 50 mg PO Q12H Blood Clot 04/12/24 04/19/24 04/19/24 History
tablet,extended release 24 hr Prevention/Tx
omega 1-lcy-ikv-fish oil 1,200 mg 1 cap PO TID Supplement 04/12/24 04/19/24 04/19/24 History
(144 mg-216 mg) capsule (Fish Oil)
therapeutic multivitamin 0.5 tab PO BID Supplement 04/12/24 04/19/24 04/19/24 History
rivaroxaban 20 mg tablet (Xarelto) 20 mg PO DAILY Blood Clot 04/19/24 04/19/24 04/19/24 History
Prevention/Tx
Review of Systems
-
History Source: Patient
All other systems: Negative unless noted
Vitals / Labs / Diagnostic Testing
Vital Signs
Temp Pulse Resp BP Pulse Ox
97.4 F 83 16 132/93 97
04/19/24 14:05 04/19/24 14:05 04/19/24 14:05 04/19/24 14:05 04/19/24 14:05
Lab Data
04/19/24 07:50
04/19/24 07:50
Microbiology
04/19/24 08:10 Urine Legionella Urinary Antigen - Final
Negative for Legionella pneumophila Serogroup 1 antigen.
A negative result does not rule out the possiblity of
Legionella infection due to other serogroups or species of
Legionella. Clinical correlation is recommended.
Diagnostic Testing:
Physical Exam
-
HEENT: Normocephalic and Anicteric
Cardiovascular: Irregular Rhythm and Peripheral Edema (Negative)
Respiratory: Wheeze (Negative), Rales (Bibasilar), Rhonchi (Negative) and Non-Labored Respirations
GI: Soft, Non Distended, Non Tender and Normal Bowel Sounds
Neurology: AO x 3
Skin: Warm and Dry
General: Comfortable, Chills (Negative) and Sweats (Negative)
Assessment
-
Assessment: 64-year-old male with a past medical history of A-fib on Xarelto, hypertension, history of pericarditis and COVID-19 who presents with SOB and chest pain that started about 2 weeks ago. On 04/12/2024 patient came to the ER with cough
and hemoptysis for 1 day. Hb was 10.5 that day. Symptoms began that morning with wheezing, shortness of breath and moderate amount of sputum with blood seen. He also had chest pain with tightness. CTA chest showed mild patchy GGO in the bases
with a RLL 4-5 mm nodule. He was tachycardic into the 110s, and was offered admission but he refused as his cardiology care is at [facility]. He was discharged home with 7-day course of Levaquin, 5-day course of 40 mg prednisone daily. He came back
again to the ER 5 days later with arm heaviness and chest pain, was found to be in A-fib with RVR. Heart rate improved with IV Lopressor and increasing his metoprolol dose. Again he was offered admission for management with DOC with cardioversion
but patient refused. Now that he is back he is endorsing similar symptoms with SOB + chest pain. He is afebrile in the ER to 97.7 �F, heart rate labile between 60�116, he is breathing at 15-22 breaths/min, he was saturating 96% on room air and BP
132/88. Labs showed leukocytosis to 11.3, Hb 14.1, absolute eosinophils are WNL at 100, troponin WNL at 0.028, proBNP 2700 (was 1450 on 04/12/2024), COVID-19 action negative, blood cultures were collected, and CXR showed no acute cardiopulmonary
process. He was started on Cardizem drip this morning due to rapid A-fib, and given Rocephin + doxycycline. Pulmonary service now consulted for additional management/recommendations.
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
Impression:
#Dyspnea + chest pain -complex case given his history of + paroxysmal A-fib with recently uncontrolled heart rates
-I personally viewed his recent CTA chest from 04/12/2024 and there are basilar predominant peribronchovascular groundglass opacities. I am not fully convinced that this represents a recurrence of MORTAR WORKER, and I am more concerned with acute
decompensated heart failure given his uncontrolled A-fib/flutter especially with his elevated proBNP and his CTA chest findings are not fully consistent with cough which is more subpleural and these GGOs are more peribronchovascular; however the
patient is very convinced that his A-fib has started after he developed his 'pneumonia' symptoms, which are very similar to his prior pneumonia symptoms when he had been diagnosed with MORTAR WORKER in the past
#Transaminitis with elevated ALT (73)
#RLL pulmonary nodule (4-5 mm) - present since 01/2022
#Mild ARMEN
#History of cryptogenic organizing pneumonia requiring prednisone with negative rheumatological workup
#Personal history of COVID-19 (12/2022)
#Alcohol use disorder
#History of single-vessel CAD with CSR TECHNICIAN of mid RCA
#Tobacco use disorder (occasional cigar use, otherwise he quit in 2006 with a 64-gncq-pdxy history prior)
Plan:
- Not fully convinced this is a recurrence of MORTAR WORKER (see above), but given that he is a good historian and seems to think his SOB and 'chest gurgling' Sx started before his A-fib recurred, I agree with treating for MORTAR WORKER and re-assess daily
- If this truly is MORTAR WORKER, he should rapidly improve once steroids are started
- If he does not improve within 24-48 hrs of steroid initiation, then would stop steroids and start trial of diuresis
- Regardless, we need to maintain heart rate control and I recommend to consult cardiology
- Recheck echo as last on file here at was in 06/2022 although not sure he has had more recent studies as his cardiac workup was done at [facility], [place]
- Maintain SpO2 >90-94% with supplemental O2 as needed
- Incentive spirometer encouraged
- prn nebulized bronchodilators
- Regarding his RLL subpleural pulmonary nodule, this has been stable since at least January 2022, and does not need any further radiographic surveillance
- Trend LFTs
- Replete electrolytes with K>4, Mg>2
- Maintain euglycemia with goal BG >100 and <180
- DVT ppx
Pulmonary service will continue to follow along.
Total time spent today was 55 minutes for this encounter. Time includes reviewing laboratory test/imaging results, reviewing pertinent medical records, obtaining and reviewing medical history, performing an appropriate exam, ordering medications,
tests and procedures. Time also includes documentation of this encounter, coordinating patient care and communicating with other healthcare professionals. Total time does not include separately billed tests performed on this date of service.
Data:
CXR 04-17-2024: No acute cardiopulmonary process.
CTA Chest 04-12-2024:
There is no pulmonary embolism
There is mild groundglass airspace disease in the basilar portion of the right lower lobe, new compared with the prior study suggesting interstitial pneumonia
[2024-04-19] MEDS: ATROVENT NEBULES 0.5 MG INH ×2 (16:45→19:13)
[2024-04-19] MEDS: XOPENEX 1.25 MG INHALANT SOLUTION INH ×2 (16:45→19:13)
[2024-04-19] MEDS: LIPITOR 40 MG PO (17:37)
[2024-04-19] MEDS: COSOPT EYE DROPS 1 DROP BOTH EYES (19:39)
[2024-04-19] MEDS: TOPROL XL 100 MG PO (19:39)
[2024-04-19] MEDS: THERAGRAN 0.5 TABLET PO (19:39)
[2024-04-20] VITALS (10 sets, daily range): BP systolic 118–156; BP diastolic 71–97; BMI 30.7
--- NOTE | 2024-04-20 03:45 | DOWNTIME ---
There was a [employer] Client Scroll Machine Operator Downtime on 04/20/2024 from 0100 to 04/20/2024 at 0337. Downtime documentation of patient's care, including medication administrations, has been reconciled in the electronic record per guidelines. Refer to the
patient's paper chart under the miscellaneous tab to see printed paper medication records and downtime forms.
[2024-04-20] MEDS: ATROVENT NEBULES 0.5 MG INH (06:01)
[2024-04-20] MEDS: XOPENEX 1.25 MG INHALANT SOLUTION INH ×2 (06:01→14:03)
[2024-04-20] MEDS: XARELTO 20 MG PO (07:22)
[2024-04-20] MEDS: VISBIOME 1 CAP PO (07:22)
[2024-04-20] MEDS: THERAGRAN 0.5 TABLET PO ×2 (07:22→20:02)
[2024-04-20] MEDS: COSOPT EYE DROPS 1 DROP BOTH EYES ×2 (07:22→20:02)
[2024-04-20] MEDS: PLAVIX 75 MG PO (07:22)
[2024-04-20] MEDS: TOPROL XL 100 MG PO ×2 (07:22→20:02)
[2024-04-20 08:08] LABS: Erythrocyte Sed Rate 6 mm/hour (0-20)
--- NOTE | 2024-04-20 08:56 | W.PN.HOSP.TC ---
Today's Communication/Plan
-
see bold
Assessment / Plan
Assessment / Plan
HPI: 64-year-old male with a past medical history of cryptogenic pneumonia, paroxysmal atrial fibrillation on Xarelto, CAD, and hypertension presents with worsening shortness of breath. This is his third ER visit in 1 week. Patient was seen on
04/12, 04/17, and today for shortness of breath. He had a chest CT done on 04/12, which shows interstitial right-sided pneumonia. He was discharged on Levaquin and steroids, which he took without improvement. He also was back into rapid atrial
fibrillation, and resumed on Xarelto and metoprolol. He was seen again in the ED on 04/17 for chest pain, and was found to have a fast heart rate. His metoprolol succinate was increased, he was discharged again. Patient reports finishing his
steroids 2 days ago. He feels that his shortness of breath has been noticeably worse overnight, and came back to the ER this morning. Associated symptoms include hemoptysis. He denies fever. No nausea, no vomiting.
#Concern for cryptogenic pneumonia
#Hemoptysis
#Shortness of breath
Urine Legionella antigen negative, follow-up sputum Gram stain and culture
Patient has completed a course of levofloxacin, and also received Rocephin/azithromycin in the ED
Hold off on further antibiotics for now
Appreciate pulmonology input, wean IV steroids, continue bronchodilators
#Rapid atrial fibrillation
S/p PVI 2011, 2012 and 2017
S/p post cardioversion 05/2018
Increased metoprolol succinate to 100 mg twice daily, continue Xarelto
Heart rate still uncontrolled
Appreciate cardiology input, started on Cardizem drip, may need DOC cardioversion in the morning to restore sinus rhythm
#Coronary artery disease
Continue Plavix, Xarelto, statin
#History of benign essential hypertension
Hold home candesartan/hydrochlorothiazide in case we need to go up on more rate controlling medications for his rapid atrial fibrillation
DVT prophylaxis�Xarelto
Full code
Total time spent to see the patient on the floor, examine the patient, review data and lab results, discuss treatment plan with patient, nursing staff around 51 minutes.
Physical Exam
General: No acute distress
HEENT: Normocephalic, Atraumatic, EOMI, MMM
Respiratory: Clear to Auscultation bilaterally
Cardiac: Normal S1/S2, tachycardic, irregularly irregular
GI: Soft, Nontender, Nondistended, Normal Bowel Sounds
Extremities: No Clubbing, Cyanosis, or Edema
Neuro: Nonfocal/Grossly Intact
Psych: Calm, Cooperative
Derm: No Visible lesions
Anticipated Discharge: 24 - 48 hours
Subjective/Interval History
-
Date of Service: April 20, 2024
Shortness of breath unchanged. Heart rate continues to be high. No fever, no vomiting.
Objective Data
-
Vital Signs:
Vital Signs
Temp Pulse Resp BP Pulse Ox
98.8 F 153 16 144/97 96
04/20/24 07:47 04/20/24 07:47 04/20/24 07:47 04/20/24 07:47 04/20/24 07:47
I&O
04/19/24 04/20/24 04/21/24
06:59 06:59 06:59
Intake Total 960 / 960
Balance 960 / 960
--- NOTE | 2024-04-20 09:24 | W.PN.PUL3 ---
Today's Communication / Plan
-
Start weaning down systemic steroids given he did not have rapid improvement with very high dose steroids at 500mg IV daily
Trial of diuresis
Cardizem drip started by cardiology and hopefully he spontaneously converts to NSR, otherwise would prefer for DOC with cardioversion - keep NPO p MN
Up out of bed as tolerated
Encourage incentive spirometer
Maintain SpO2 >90 this 94%
Assessment
-
Assessment: 64-year-old male with a past medical history of A-fib on Xarelto, hypertension, history of pericarditis and COVID-19 who presents with SOB and chest pain that started about 2 weeks ago. On 04/12/2024 patient came to the ER with cough
and hemoptysis for 1 day. Hb was 10.5 that day. Symptoms began that morning with wheezing, shortness of breath and moderate amount of sputum with blood seen. He also had chest pain with tightness. CTA chest showed mild patchy GGO in the bases
with a RLL 4-5 mm nodule. He was tachycardic into the 110s, and was offered admission but he refused as his cardiology care is at [facility]. He was discharged home with 7-day course of Levaquin, 5-day course of 40 mg prednisone daily. He came back
again to the ER 5 days later with arm heaviness and chest pain, was found to be in A-fib with RVR. Heart rate improved with IV Lopressor and increasing his metoprolol dose. Again he was offered admission for management with DOC with cardioversion
but patient refused. Now that he is back he is endorsing similar symptoms with SOB + chest pain. He is afebrile in the ER to 97.7 �F, heart rate labile between 60�116, he is breathing at 15-22 breaths/min, he was saturating 96% on room air and BP
132/88. Labs showed leukocytosis to 11.3, Hb 14.1, absolute eosinophils are WNL at 100, troponin WNL at 0.028, proBNP 2700 (was 1450 on 04/12/2024), COVID-19 action negative, blood cultures were collected, and CXR showed no acute cardiopulmonary
process. He was started on Cardizem drip this morning due to rapid A-fib, and given Rocephin + doxycycline. Pulmonary service now consulted for additional management/recommendations.
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
Impression:
#Dyspnea + chest pain -complex case given his history of + paroxysmal A-fib with recently uncontrolled heart rates
-I personally reviewed his recent CTA chest from 04/12/2024 and there are basilar predominant peribronchovascular groundglass opacities. I am not fully convinced that this represents a recurrence of NECKTIE MAKER, and I am more concerned with acute
decompensated heart failure given his uncontrolled A-fib/flutter especially with his elevated proBNP and his CTA chest findings are not fully consistent with cough which is more subpleural and these GGOs are more peribronchovascular; however the
patient is very convinced that his A-fib has started after he developed his 'pneumonia' symptoms, which are very similar to his prior pneumonia symptoms when he had been diagnosed with NECKTIE MAKER in the past
#Transaminitis with elevated ALT (73)
#RLL pulmonary nodule (4-5 mm) - present since 01/2022
#Mild ARMEN
#History of cryptogenic organizing pneumonia requiring prednisone with negative rheumatological workup
#Personal history of COVID-19 (12/2022)
#Alcohol use disorder
#History of single-vessel CAD with DIRECTOR OF STUDENT SERVICES of mid RCA
#Tobacco use disorder (occasional cigar use, otherwise he quit in 2006 with a 26-mkur-eace history prior)
Plan:
- Not fully convinced this is a recurrence of NECKTIE MAKER (see above), but given that he is a good historian and seems to think his SOB and 'chest gurgling' Sx started before his A-fib recurred, I agree with treating for NECKTIE MAKER and re-assess daily
- If this truly is NECKTIE MAKER, he should rapidly improve given steroids were started on 04/19 with solumedrol 500mg IV daily--> given he is not rapidly improving, doubt this is NECKTIE MAKER. Cardiology starting cardizem gtt; aim for rate control with goal
HR<110bpm; plan for DOC with cardioversion tomorrow; keep NPO p MN
- Given little improvement since steroids were initiated, start trial of diuresis
- I will start to wean down steroids down to 40mg IV q12hr today
- Rheumatological/CTD workup checked today � follow-up results
- Recheck echo as last on file here at was in 06/2022 although not sure he has had more recent studies as his cardiac workup was done at [facility]
-TTE done today showing normal RV size/function, moderate MR, mild TR, mild pulmonary hypertension, with preserved LVEF at 65% with mild concentric LVH.
- Maintain SpO2 >90-94% with supplemental O2 as needed
- Incentive spirometer encouraged
- prn nebulized bronchodilators
- Regarding his RLL subpleural pulmonary nodule, this has been stable since at least January 2022, and does not need any further radiographic surveillance
- Trend LFTs
- Replete electrolytes with K>4, Mg>2
- Maintain euglycemia with goal BG >100 and <180
- DVT ppx
Pulmonary service will continue to follow along.
Total time spent today was 35 minutes for this encounter. Time includes reviewing laboratory test/imaging results, reviewing pertinent medical records, obtaining and reviewing medical history, performing an appropriate exam, ordering medications,
tests and procedures. Time also includes documentation of this encounter, coordinating patient care and communicating with other healthcare professionals. Total time does not include separately billed tests performed on this date of service.
Data:
CXR 04-17-2024: No acute cardiopulmonary process.
CTA Chest 04-12-2024:
There is no pulmonary embolism
There is mild groundglass airspace disease in the basilar portion of the right lower lobe, new compared with the prior study suggesting interstitial pneumonia
TTE 04-20-2024:
Normal left ventricular chamber size. Normal left ventricular systolic
function. Left ventricular ejection fraction is 65% by Garcia's method. Mild
concentric left ventricular hypertrophy. Diastolic function indeterminate due
to atrial fibrillation.
Normal right ventricular size and function.
Moderate mitral regurgitation.
Mild tricuspid regurgitation. Estimated pulmonary artery pressure of 31 mmHg,
assuming a right atrial pressure of 8 mmHg.
Compared to prior study dated 06/09/2022, mitral regurgitation was previously
mild, otherwise no significant change
Subjective Data
-
Date of Service:
Date of Service: April 20, 2024
Chief Complaint: Pulmonary Follow Up
Subjective:
Patient seen and evaluated today at bedside. He is eating food in no acute stress. Cardiology saw the patient earlier and patient now on a Cardizem drip at 5 mg/hr. He says he feels a little bit better but still not back to his usual baseline.
No bloody cough today. No events reported from overnight. No chest pain, headache, fevers or chills.
Review of Systems
General: Other (Negative unless mentioned above)
Objective Data
Data Reviewed
Vital Signs / I&O / Oxygen:
Vital Signs
Temp Pulse Resp BP Pulse Ox
98.8 F 127 16 144/97 96
04/20/24 07:47 04/20/24 10:28 04/20/24 07:47 04/20/24 07:47 04/20/24 07:47
Intake and Output
04/19/24 04/20/24 04/21/24
06:59 06:59 06:59
Intake Total 960 / 960
Balance 960 / 960
SaO2 96
Physical Exam
General: Respiratory Distress (Negative), Comfortable and Chills (Negative)
HEENT: Normocephalic and Anicteric
Cardiovascular: Irregular Rhythm and Peripheral Edema (Negative)
Respiratory: Wheeze (Negative), Crackles (Bibasilar), Rhonchi (Negative) and Non-Labored Respirations
GI: Soft, Non Distended, Non Tender and Normal Bowel Sounds
Neurology: AO x 3 and Tremors (Negative)
Skin: Warm, Dry and Jaundice (Negative)
Labs/Micro/Reports
Lab Data
04/19/24 07:50
04/19/24 07:50
Microbiology
04/19/24 08:10 Blood/Venous Blood Culture - Preliminary
No Growth in 24 hours- Final report to follow
04/19/24 07:50 Blood/Venous Blood Culture - Preliminary
No Growth in 24 hours- Final report to follow
04/19/24 08:10 Urine Legionella Urinary Antigen - Final
Negative for Legionella pneumophila Serogroup 1 antigen.
A negative result does not rule out the possiblity of
Legionella infection due to other serogroups or species of
Legionella. Clinical correlation is recommended.
[2024-04-20] MEDS: LOPRESSOR 5 MG IV (10:28)
--- NOTE | 2024-04-20 10:53 | CON.CAR ---
Addendum entered and electronically signed by Rommel Richard MD 04/20/24 14:42:
I saw and examined the patient.
The Wood Panel Inspector's note was reviewed and I agree with the note.
Comment: Briefly, 64-year-old man past medical history of atrial fibrillation and atrial flutter status post ablation, CAD status post PCI for SHAREPOINT SPECIALIST of the RCA 09/21/2023 and interstitial lung disease who presents with worsening dyspnea over the past
1 to 2 weeks
It seems that he has had 3 ER visits over the last week (04/12, 04/17 and 04/19) for chest pain, arm heaviness and dyspnea� ECG at each visit shows atrial fibrillation
Given history of lung disease he is receiving steroids and nebulizer treatments for his dyspnea
Does not appear to be overtly volume overloaded on exam, but may benefit from gentle IV diuresis to improve his volume status
Heart rates have been rapid at times overnight, would continue p.o. metoprolol and add diltiazem drip for heart rate goal less than 110 bpm
Suspect his symptoms may be related to atrial fibrillation and therefore we will plan for DOC/direct-current cardioversion in the a.m. to restore sinus rhythm
Original Note:
Consultation
Consultation Request
Date/Time Consultation Performed: 04/20/24
Requesting Provider: Dr. Joyce Munroe
Performing Provider: Melissa Ayala PA-C for Dr. Richard
Reason for Consultation: SOB, afib with RVR
Medical History
-
Chief Complaint: SOB
History of Present Illness:
Patient is a 64-year-old male with past medical history of paroxysmal atrial flutter status post ablation in 2011, paroxysmal atrial fibrillation status post PVI in 2012, repeat ablation 10/2018 where he had focal reconnection at CTI isthmus and
LSPV. He has history of chronic total occlusion of RCA status post unsuccessful PTCA 01/2022. He had second opinion at [facility] and underwent RCA stent 09/2023. He has primarily followed now by Dr. Edgar Starkey. He reports recently he has
struggled with shortness of breath. He has had 3 ER visits in the last 8 days. He denies fever, chills. He reports some dry coughing, however nothing productive. He denies edema, weight gain, orthopnea. He reports the shortness of breath is
worse with exertion. He does report some mild hemoptysis which seems to have improved. Associated with this he has also felt he is back in A-fib as he gets chest tightness, which was confirmed during an ER visit. He was started back on Xarelto
and Toprol. He had imaging which initially was concerning for a pneumonia and was treated with antibiotics and steroids. He reports he does have some improvement in his breathing since admission. His proBNP has trended up, now 2700. He is not on
diuretic as an outpatient. Cardiology consulted as patient remains in rapid afib at this time.
PMH:
Paroxysmal atrial fibrillation and atrial flutter
Status post flutter ablation in 2011
Status post PVI 2012
Status post repeat ablation 10/2018 with focal reconnection at CTI isthmus and LSPV
CAD with SHAREPOINT SPECIALIST of RCA status post unsuccessful PTCA 01/2022, status post RCA PCI at [facility] 09/2023
Interstitial lung disease
Former smoker
Past Medical History
Past Medical History: Other (in HPI)
Social History
Tobacco: Former Smoker
Alcohol: Other (10-12 alcoholic beverages weekly)
Personal:
Living: With Family
Family History
Family History: CAD (in father in 70s) and Other (CHF in mother in 70s)
Allergies / Home Medications
Allergy/AdvReac Type Severity Reaction Status Date / Time
No Known Allergies Allergy Verified 04/19/24 07:03
�Medication �Instructions �Recorded �Confirmed �Type
Lactobac no.2-Bifidobac no.1-S. 1 cap PO DAILY Gastrointestinal 04/12/24 04/19/24 History
thermo 112.5 billion cell capsule Issue
(Visbiome)
atorvastatin 40 mg tablet 40 mg PO QPM High Cholesterol 04/12/24 04/19/24 History
candesartan 32 1 tab PO DAILY Blood Pressure 04/12/24 04/19/24 History
mg-hydrochlorothiazide 25 mg tablet
clopidogrel 75 mg tablet 75 mg PO DAILY Blood Clot 04/12/24 04/19/24 History
Prevention/Tx
dorzolamide 22.3 mg-timolol 6.8 1 drp BOTH EYES BID Eye Condition 04/12/24 04/19/24 History
mg/mL eye drops
metoprolol succinate 25 mg 50 mg PO Q12H Blood Clot 04/12/24 04/19/24 History
tablet,extended release 24 hr Prevention/Tx
omega 0-uqn-tvm-fish oil 1,200 mg 1 cap PO TID Supplement 04/12/24 04/19/24 History
(144 mg-216 mg) capsule (Fish Oil)
therapeutic multivitamin 0.5 tab PO BID Supplement 04/12/24 04/19/24 History
rivaroxaban 20 mg tablet (Xarelto) 20 mg PO DAILY Blood Clot 04/19/24 04/19/24 History
Prevention/Tx
Review of Systems
-
History Source: Patient
All other systems: Negative unless noted
Physical Exam
Vital Signs
Temp Pulse Resp BP Pulse Ox
98.8 F 127 16 144/97 96
04/20/24 07:47 04/20/24 10:28 04/20/24 07:47 04/20/24 07:47 04/20/24 07:47
Lab Results
04/19/24 07:50
04/19/24 07:50
Troponin I 0.028 ng/ml 04/19/24 07:50
Aud-U-Nwxifvulcrf Pept 2700 pg/ml 04/19/24 07:50
Physical Exam
General: No Apparent Distress and Comfortable
HEENT: Normocephalic, Anicteric and Moist Mucous Membranes
Respiratory: Crackles and Non Labored Respirations
Cardiac: S1/S2 and Irregular Rhythm
GI: Soft, Non Tender, Non Distended and Normal Bowel Sounds
Musculoskeletal: No Clubbing, No Cyanosis and No Edema
Skin: Warm and Dry
Neuro: AO x 3
Impression / Plan
-
Primary Lvn: Dr. Edgar Starkey of [facility]
Assessment:
Presentation with SOB
ER visit x3 in last 8 days
Concern for PNA
Concern for acute CHF
Paroxysmal atrial fibrillation and atrial flutter, now with RVR
Status post flutter ablation in 2011
Status post PVI 2012
Status post repeat ablation 10/2018 with focal reconnection at CTI isthmus and LSPV
CAD with SHAREPOINT SPECIALIST of RCA status post unsuccessful PTCA 01/2022, status post RCA PCI at [facility] 09/2023
Interstitial lung disease
Former smoker, occasional cigars
ETOH use
Elevated CRP
ECHO 06/2022: EF 65%, mild concentric LVH, mild MR, trace TR, PAP 35 to 40 mmHg
Plan:
-Patient presents with shortness of breath. He has had 3 ER visits in the last 8 days. He had a been treated for a pneumonia without significant improvement
-He is also in atrial fibrillation with rapid ventricular response at present. He had been on a Cardizem drip in the ER which was stopped. Given continued rapid rates, will resume @5. His oral rate control with Toprol has also been increased to
100 mg twice daily per primary service
-proBNP 2700, uptrending. Will trial dose of IV Lasix 40 mg x 1 today
-Discussed with pulmonary who are also following patient. Continue treatment of possible pneumonia
-Attempted to obtain records, however office is closed today for holiday. Will try again in AM.
-Repeat echocardiogram this admission when heart rates improved
-Will consider for DOC/cardioversion in a.m. versus on Thursday pending respiratory status. Tentatively n.p.o. after midnight
-continue xarelto (recently resumed), plavix in setting of recent RCA PCI 09/2023
Data Reviewed
-
EKG: Tracing Personally Visualized and interpreted
Radiology: Report Reviewed by me
Medical Tests (Nuc Med, Echo etc): Report Reviewed by me
Labs: Labs Reviewed by me
Old Records: Reviewed
[2024-04-20] MEDS: SOLU-MEDROL 108 MG IV (11:46)
[2024-04-20] MEDS: CARDIZEM 125 IV (12:03)
[2024-04-20] MEDS: LASIX 40 MG IV (13:06)
[2024-04-20] MEDS: ATROVENT NEBULES INH (14:02)
--- NOTE | 2024-04-20 16:05 | CM ---
Alert awake oriented patient who lives with his Kayla who lives in a 3 story home with 3 step to enter and 15 steps to bed and bathroom. He is independent in driving and in all activities of daily living.He was offered VN he declined need.
No VN hx / No SNF history
Pharmacy [facility]
PCP DR Priscila Kenyon
PLAN Home Declined VN
[2024-04-20] MEDS: LIPITOR 40 MG PO (17:03)
[2024-04-20] MEDS: SOLU-MEDROL PF 40 MG IV (20:02)
[2024-04-21 03:00] VITALS: BP 134/84
[2024-04-21] MEDS: CARDIZEM 125 IV (04:56)
[2024-04-21 05:45] LABS: Hematocrit 40.6 % (39.0-52.0); Hemoglobin 14.3 g/dL (13.0-18.0); Mean Corp Hgb Conc. 35.2 g/dL (33.0-37.0); Mean Corpuscular Hgb 32.6 pg (27.0-31.0); Mean Corpuscular Volume 92.5 fL (80.0-94.0); Mean Platelet Volume 10.9 fL (7.4-10.4); Platelet Count 151 10^3/uL (130-400); Red Blood Cell Count 4.39 10^6/uL (4.70-6.10); Red Cell Dist. Width 12.4 % (11.5-14.5); White Blood Cell Count 18.1 10^3/uL (4.8-10.8)
[2024-04-21 06:00] VITALS: BMI 30.7
[2024-04-21 06:12] LABS: ALT (SGPT) 56 U/L (0-50); AST (SGOT) 31 U/L (17-59); Albumin 3.5 g/dl (3.5-5.0); Alkaline Phosphatase 56 U/L (38-126); Blood Urea Nitrogen 36 mg/dl (9-20); Calcium 9.3 mg/dl (8.4-10.2); Carbon Dioxide 22 mmol/L (22-30); Chloride 104 mmol/L (98-107); Estimated Creatinine Clearance > 125 ml/min; Glucose 147 mg/dl (70-99); Magnesium 2.6 mg/dl (1.6-2.3); Phosphorus 3.6 mg/dl (2.5-4.5); Potassium 3.8 mmol/L (3.5-5.1); Sodium 135 mmol/L (135-145); Total Bilirubin 0.7 mg/dl (0.2-1.3); Total Protein 5.8 g/dl (6.3-8.2); eGFR > 60.00
[2024-04-21 06:26] LABS: NT-proBNP 2000 pg/ml
[2024-04-21 07:00] VITALS: BP 133/85
--- NOTE | 2024-04-21 07:19 | PTCARENOTE ---
PLASTER MACHINE TENDER made aware @0156 patient went into NSR on tele. PLASTER MACHINE TENDER ordered cardizem gtt infusion to be stopped. PLASTER MACHINE TENDER made aware @0426 patient on tele is in afib with HR in the 90s going up to low 100s (101-104). PLASTER MACHINE TENDER ordered cardizem gtt to restart running @5mg/hr.
[2024-04-21] MEDS: SOLU-MEDROL PF 40 MG IV ×2 (07:22→20:44)
[2024-04-21] MEDS: TOPROL XL 100 MG PO ×2 (07:23→20:45)
[2024-04-21] MEDS: VISBIOME 1 CAP PO (07:23)
[2024-04-21] MEDS: PLAVIX 75 MG PO (07:23)
[2024-04-21] MEDS: THERAGRAN 0.5 TABLET PO ×2 (07:23→20:45)
[2024-04-21] MEDS: COSOPT EYE DROPS 1 DROP BOTH EYES ×2 (07:23→20:44)
[2024-04-21] MEDS: XARELTO 20 MG PO (07:23)
--- NOTE | 2024-04-21 07:43 | W.PN.CARDCBS ---
Addendum entered and electronically signed by Melissa Ayala PA-C 04/21/24 12:17:
correction to below: mild acute HFpEF
Addendum entered and electronically signed by Rommel Richard MD 04/21/24 09:30:
I saw and examined the patient.
The Sensor Technician's note was reviewed and I agree with the note.
Comment: Briefly, 64-year-old man with past medical history of persistent atrial fibrillation/atrial flutter with multiple ablations in the past presenting with dyspnea found to be in atrial fibrillation with rapid ventricular response
Underwent DOC/direct-current cardioversion this morning with successful faith of normal sinus rhythm
Continue Xarelto for cardioembolic prophylaxis
He should follow-up with his primary control board operator through the [facility] system
Original Note:
Today's Communication / Plan
-
DOC/cardioversion today
Continue Xarelto/Plavix
Continue workup/treatment of shortness of breath
Impression / Plan
-
Primary Film Tests Checker: Dr. Edgar Starkey of [facility]
Assessment:
Presentation with SOB
ER visit x3 in last 8 days
Concern for PNA
Concern for acute CHF
Paroxysmal atrial fibrillation and atrial flutter, now with RVR
Status post flutter ablation in 2011
Status post PVI 2012
Status post repeat ablation 10/2018 with focal reconnection at CTI isthmus and LSPV
CAD with IN HOME CAREGIVER of RCA status post unsuccessful PTCA 01/2022, status post RCA PCI at [facility] 09/2023
Interstitial lung disease
Former smoker, occasional cigars
ETOH use
Elevated CRP
ECHO 06/2022: EF 65%, mild concentric LVH, mild MR, trace TR, PAP 35 to 40 mmHg
Echo 04/20/2024: EF 65%, mild concentric LVH, moderate MR, mild TR, PAP 31 mmHg
Plan:
-Patient presented with shortness of breath, etiology unclear, possibly multifactorial. He has had 3 ER visits in the last 8 days. He had a been treated for a pneumonia without significant improvement
-He remains in atrial fibrillation on Cardizem drip and p.o. Toprol.
-He reports good urine output with dose of IV Lasix yesterday. He is on room air, however does remain with some shortness of breath
-Echo 04/20 with preserved EF and moderate MR
-Will attempt DOC/cardioversion today
-continue xarelto (recently resumed), plavix in setting of recent RCA PCI 09/2023
-Continue pulmonary toilet/treatment of pneumonia
-Will attempt to obtain records from [facility] control board operator
-If recurs with atrial arrhythmia, would consider for antiarrhythmic drug therapy. 3 prior ablations as above
Progress Note - Film Tests Checker
Subjective
Date of Service: April 21, 2024
Reports good urine output with Lasix dose yesterday. Remains with some shortness of breath
Objective
Labs:
04/21/24 05:26
04/21/24 05:26
Labs
Hgb 14.3 g/dL (13.0-18.0) 04/21/24 05:26
Hct 40.6 % (39.0-52.0) 04/21/24 05:26
Plt Count 151 10^3/uL (130-400) 04/21/24 05:26
Sodium 135 mmol/L (135-145) 04/21/24 05:26
Potassium 3.8 mmol/L (3.5-5.1) 04/21/24 05:26
BUN 36 mg/dl (9-20) H 04/21/24 05:26
Creatinine 0.8 mg/dL (0.7-1.3) 04/21/24 05:26
Glucose 147 mg/dl (70-99) H 04/21/24 05:26
Troponins
04/19/24
07:50
Troponin I 0.028
Vital Signs and I&O:
Vital Signs
Temp Pulse Resp BP Pulse Ox
97.5 F 101 18 133/85 98
04/21/24 07:00 04/21/24 07:23 04/21/24 07:00 04/21/24 07:23 04/21/24 07:00
Vital Signs
Temp Pulse Resp BP Pulse Ox
97.5 F 101 18 133/85 98
04/21/24 07:00 04/21/24 07:23 04/21/24 07:00 04/21/24 07:23 04/21/24 07:00
Intake & Output
04/18/24 04/19/24 04/20/24 04/21/24
07:59 07:59 07:59 07:59
Intake Total 960 / 960 1380 / 1380
Balance 960 / 960 1380 / 1380
Physical Exam
Physical Exam
GEN: No distress, awake, alert, oriented x3
HEENT: supple, anicteric, mmm, EOMI
LUNGS: Few wheezes B/L
CV: Irreg, S1/S2, no murmur
EXT: No cyanosis, clubbing, edema
NEURO: Gross non-focal
SKIN: Warm, pink, dry. No rash
--- NOTE | 2024-04-21 08:36 | W.PN.HOSP.TC ---
Today's Communication/Plan
-
see bold
Assessment / Plan
Assessment / Plan
HPI: 64-year-old male with a past medical history of cryptogenic pneumonia, paroxysmal atrial fibrillation on Xarelto, CAD, and hypertension presents with worsening shortness of breath. This is his third ER visit in 1 week. Patient was seen on
04/12, 04/17, and today for shortness of breath. He had a chest CT done on 04/12, which shows interstitial right-sided pneumonia. He was discharged on Levaquin and steroids, which he took without improvement. He also was back into rapid atrial
fibrillation, and resumed on Xarelto and metoprolol. He was seen again in the ED on 04/17 for chest pain, and was found to have a fast heart rate. His metoprolol succinate was increased, he was discharged again. Patient reports finishing his
steroids 2 days ago. He feels that his shortness of breath has been noticeably worse overnight, and came back to the ER this morning. Associated symptoms include hemoptysis. He denies fever. No nausea, no vomiting.
#Concern for cryptogenic pneumonia
#Hemoptysis
#Shortness of breath
Urine Legionella antigen negative, follow-up sputum Gram stain and culture
Patient has completed a course of levofloxacin MANAGER VEHICLE, and also received Rocephin/azithromycin in the ED
Hold off on further antibiotics for now, check procalcitonin
Appreciate pulmonology input, wean IV steroids, continue bronchodilators
Discussed with pulmonology, he may need bronchoscopy
#Leukocytosis
From steroids
#Rapid atrial fibrillation
S/p PVI 2011, 2012 and 2017
S/p post cardioversion 05/2018
Appreciate cardiology input, status post successful DOC guided cardioversion on 04/21
Continue metoprolol succinate to 100 mg twice daily, continue Xarelto
#Coronary artery disease
Continue Plavix, Xarelto, statin
#History of benign essential hypertension
Hold home candesartan/hydrochlorothiazide in case we need to go up on more rate controlling medications for his rapid atrial fibrillation
DVT prophylaxis�Xarelto
Full code
Total time spent to see the patient on the floor, examine the patient, review data and lab results, discuss treatment plan with patient, nursing staff around 50 minutes.
Physical Exam
General: No acute distress
HEENT: Normocephalic, Atraumatic, EOMI, MMM
Respiratory: Diminished breath sounds on the right lung base with fine crackles
Cardiac: Normal S1/S2, regular rate and rhythm
GI: Soft, Nontender, Nondistended, Normal Bowel Sounds
Extremities: No Clubbing, Cyanosis, or Edema
Neuro: Nonfocal/Grossly Intact
Psych: Calm, Cooperative
Derm: No Visible lesions
Anticipated Discharge: 24 - 48 hours
Subjective/Interval History
-
Date of Service: April 21, 2024
Patient reports his breathing is worse today. His cough is also worse, bringing up blood-tinged sputum. No fever, no vomiting.
Objective Data
-
Labs:
Laboratory Results
04/21/24
05:26
WBC 18.1 H
Hgb 14.3
Hct 40.6
Plt Count 151
Sodium 135
Potassium 3.8
Chloride 104
Carbon Dioxide 22
BUN 36 H
Creatinine 0.8
Glucose 147 H
Calcium 9.3
Total Bilirubin 0.7
AST 31
ALT 56 H
Alkaline Phosphatase 56
Vital Signs:
Vital Signs
Temp Pulse Resp BP Pulse Ox
97.5 F 101 18 133/85 98
04/21/24 07:00 04/21/24 07:23 04/21/24 07:00 04/21/24 07:23 04/21/24 07:00
I&O
04/20/24 04/21/24 04/22/24
06:59 06:59 06:59
Intake Total 960 / 960 1380 / 1380
Balance 960 / 960 1380 / 1380
--- NOTE | 2024-04-21 09:27 | ITS.CL.CARDI ---
Medical Cost Consultant - Cardioversion
Cardioversion
Procedure Report:
Procedure: DOC-guided electrical cardioversion
Pre-operative diagnosis: Persistent atrial fibrillation
Post-operative diagnosis: Persistent atrial fibrillation status post DC cardioversion to sinus rhythm
Anesthesia: MAC
Attending Physician: Rommel Richard MD
Procedure Description: The patient was brought to the electrophysiology laboratory in the fasting state. Informed consent was obtained from the patient prior to the start of the procedure. Adherence to anticoagulation was confirmed. Electrodes were
placed on the patient and connected to an external defibrillator. Monitoring of blood pressure, ECG tracings, and pulse oximetry was initiated. The pads were applied to the patient in the anterior and posterior positions. The patient was sedated by
the anesthesiologist. A DOC (reported separately) was performed prior to the cardioversion. No left atrial or left atrial appendage thrombus was seen. After the DOC probe was removed, a 200 joule biphasic synchronized shock was delivered to the
patient under MAC anesthesia. Sinus rhythm was successfully restored. The patient recovered uneventfully from MAC anesthesia. There were no immediate post-procedure complications. The patient left the lab in good condition. The attending physician
was present throughout the entire procedure.
Impression: Successful DOC-guided direct current cardioversion with mandaeism of sinus rhythm after one 200 joule biphasic synchronized shock.
--- NOTE | 2024-04-21 10:08 | W.PN.PUL3 ---
Today's Communication / Plan
-
Check CT chest with IV contrast
NPO p MN for bronchoscopy - BAL and possibly TBBx
Continue to wean down systemic steroids given he did not have rapid improvement with very high dose steroids at 500mg IV daily
s/p trial of diuresis on 04/20 - did not seem to help his SOB given worsening respiratory status today + hemoptysis
Underwent DOC/DCCV today --> successfully converted to NSR
Up out of bed as tolerated
Encourage incentive spirometer
Maintain SpO2>90-94%
Assessment
-
Assessment: 64-year-old male with a past medical history of A-fib on Xarelto, hypertension, history of pericarditis and COVID-19 who presents with SOB and chest pain that started about 2 weeks ago. On 04/12/2024 patient came to the ER with cough
and hemoptysis for 1 day. Hb was 10.5 that day. Symptoms began that morning with wheezing, shortness of breath and moderate amount of sputum with blood seen. He also had chest pain with tightness. CTA chest showed mild patchy GGO in the bases
with a RLL 4-5 mm nodule. He was tachycardic into the 110s, and was offered admission but he refused as his cardiology care is at [facility]. He was discharged home with 7-day course of Levaquin, 5-day course of 40 mg prednisone daily. He came back
again to the ER 5 days later with arm heaviness and chest pain, was found to be in A-fib with RVR. Heart rate improved with IV Lopressor and increasing his metoprolol dose. Again he was offered admission for management with DOC with cardioversion
but patient refused. Now that he is back he is endorsing similar symptoms with SOB + chest pain. He is afebrile in the ER to 97.7 �F, heart rate labile between 60�116, he is breathing at 15-22 breaths/min, he was saturating 96% on room air and BP
132/88. Labs showed leukocytosis to 11.3, Hb 14.1, absolute eosinophils are WNL at 100, troponin WNL at 0.028, proBNP 2700 (was 1450 on 04/12/2024), COVID-19 action negative, blood cultures were collected, and CXR showed no acute cardiopulmonary
process. He was started on Cardizem drip this morning due to rapid A-fib, and given Rocephin + doxycycline. Pulmonary service now consulted for additional management/recommendations.
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
Impression:
#Dyspnea + chest pain - complex case given his history of + paroxysmal A-fib with recently uncontrolled heart rates
-I personally reviewed his recent CTA chest from 04/12/2024 and there are basilar predominant peribronchovascular groundglass opacities. 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
decompensated heart failure given his uncontrolled A-fib/flutter especially with his elevated proBNP and his CTA chest findings are not fully consistent with cough which is more subpleural and these GGOs are more peribronchovascular; he has no
microscopic hematuria on UA, hence doubt vasculitis. 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
the past
#Transaminitis with elevated ALT (73)
#RLL pulmonary nodule (4-5 mm) - present since 01/2022
#Mild ARMEN
#History of cryptogenic organizing pneumonia requiring prednisone with negative rheumatological workup
#Personal history of COVID-19 (12/2022)
#Alcohol use disorder
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
#Tobacco use disorder (occasional cigar use, otherwise he quit in 2006 with a [id number] history prior)
Plan:
- Given his worsening hemoptysis despite being on steroids, and now in NSR and given IV lasix on 04/20, I will check CT Chest with IV contrast, and plan for bronchoscopy tomorrow
- Will perform BAL tomorrow from the region of his GGO, and will possibly perform transbronchial biopsy
- Keep disposable cup at bedside to quantify his hemoptysis
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
- If this truly is PILOT CONTROL OPERATOR HELPER, he should rapidly improve given steroids were started on 04/19 with solumedrol 500mg IV daily--> given he is not rapidly improving, doubt this is PILOT CONTROL OPERATOR HELPER. Cardiology started cardizem gtt and he underwent DOC with cardioversion
this AM successfully converting him into NSR. he still feels SOB with worsening hemoptysis today despite being in NSR, and despite getting lasix on 04/20 (40mg IVP x1 - no I/O accurately reported)
- I started to wean down steroids on 04/20 - reduced from 500mg IV daily to 40mg IV q12hr
- Rheumatological/CTD workup checked on 04/20 � follow-up results
- Recheck echo as last on file here at was in 06/2022 although not sure he has had more recent studies as his cardiac workup was done at [facility]
-TTE done on 04/20 showing normal RV size/function, moderate MR, mild TR, mild pulmonary hypertension, with preserved LVEF at 65% with mild concentric LVH.
- DOC done today during cardioversion - moderate MR, normal JUAN with no thrombus seen, no regional WMA, LVEF 60-65%, normal RV size/function and normal pulmonary veins
- Maintain SpO2 >90-94% with supplemental O2 as needed
- Incentive spirometer encouraged
- prn nebulized bronchodilators
- Procal is <0.05 --> doubt this is a bacterial infection. Hold off on Abx
- Regarding his RLL subpleural pulmonary nodule, this has been stable since at least January 2022, and does not need any further radiographic surveillance
- Trend LFTs
- Replete electrolytes with K>4, Mg>2
- Maintain euglycemia with goal BG >100 and <180
- DVT ppx
Pulmonary service will continue to follow along.
Total time spent today was 50 minutes for this encounter. Time includes reviewing laboratory test/imaging results, reviewing pertinent medical records, obtaining and reviewing medical history, performing an appropriate exam, ordering medications,
tests and procedures. Time also includes documentation of this encounter, coordinating patient care and communicating with other healthcare professionals. Total time does not include separately billed tests performed on this date of service.
Data:
CXR 04-17-2024: No acute cardiopulmonary process.
CTA Chest 04-12-2024:
There is no pulmonary embolism
There is mild groundglass airspace disease in the basilar portion of the right lower lobe, new compared with the prior study suggesting interstitial pneumonia
TTE 04-20-2024:
Normal left ventricular chamber size. Normal left ventricular systolic
function. Left ventricular ejection fraction is 65% by Garcia's method. Mild
concentric left ventricular hypertrophy. Diastolic function indeterminate due
to atrial fibrillation.
Normal right ventricular size and function.
Moderate mitral regurgitation.
Mild tricuspid regurgitation. Estimated pulmonary artery pressure of 31 mmHg,
assuming a right atrial pressure of 8 mmHg.
Compared to prior study dated 06/09/2022, mitral regurgitation was previously
mild, otherwise no significant change
Subjective Data
-
Date of Service:
Date of Service: April 21, 2024
Chief Complaint: Pulmonary Follow Up
Subjective:
Patient seen and evaluated today at bedside. He feels worse today, worsening hemoptysis this morning. Also endorses shortness of breath. Hb is stable, is 14.3 this morning. Afebrile overnight. Underwent cardioversion this morning and
successfully converted to NSR. He is on room air breathing comfortably. He denies chest pain, headache, abdominal pain, fevers or chills or body rash.
Review of Systems
General: Other (Negative unless mentioned above)
Objective Data
Data Reviewed
Vital Signs / I&O / Oxygen:
Vital Signs
Temp Pulse Resp BP Pulse Ox
97.5 F 83 18 135/88 97
04/21/24 15:00 04/21/24 15:00 04/21/24 15:00 04/21/24 15:00 04/21/24 15:00
Intake and Output
04/20/24 04/21/24 04/22/24
06:59 06:59 06:59
Intake Total 960 / 960 1380 / 1380
Balance 960 / 960 1380 / 1380
SaO2 97
Physical Exam
General: Respiratory Distress (Negative), Comfortable and Chills (Negative)
HEENT: Normocephalic and Anicteric
Cardiovascular: S1-S2 and Peripheral Edema (Negative)
Respiratory: Wheeze (Negative), Crackles (Bilateral), Rhonchi (Negative) and Non-Labored Respirations
GI: Soft, Non Distended, Non Tender and Normal Bowel Sounds
Neurology: AO x 3 and Tremors (Negative)
Skin: Warm, Dry and Jaundice (Negative)
Labs/Micro/Reports
Lab Data
04/21/24 05:26
04/21/24 05:26
Microbiology
04/21/24 12:13 Sputum Gram Stain - Preliminary
04/19/24 08:10 Blood/Venous Blood Culture - Preliminary
No Growth in 48 hours- Final report to follow
04/19/24 07:50 Blood/Venous Blood Culture - Preliminary
No Growth in 48 hours- Final report to follow
04/19/24 08:10 Urine Legionella Urinary Antigen - Final
Negative for Legionella pneumophila Serogroup 1 antigen.
A negative result does not rule out the possiblity of
Legionella infection due to other serogroups or species of
Legionella. Clinical correlation is recommended.
[2024-04-21 11:00] VITALS: BP 132/86
--- NOTE | 2024-04-21 11:16 | PN.CDI ---
CDI
- -
CDI:
Physician Documentation Request
Admit Date: 04/19/24 12:10
Dear Cardiology,
Clinical Indicators:
Patient admitted with rapid atrial fibrillation; presented with hemoptysis and shortness of breath.
04/20 PN, 'Does not appear overtly volume overloaded on exam, but may benefit from gentle diuresis to improve his volume status....Concern for acute CHF'
Lasix 40mg IV x 1 given.
Echo Report, 'Left ventricular ejection fraction is 65%... Diastolic function indeterminate due to atrial fibrillation.'
BNP
04/19/24
07:50
Erd-R-Pccgygfleih Pept 2700
Please provide further specificity regarding the most likely type and acuity of CHF you are evaluating, treating or monitoring.
Acute HFpEF
CHF ruled out: volume overload only
Other, please specify
Use of terms such as suspected, likely, concern for, or probable (associated with a specific diagnosis that is being evaluated, monitored, or treated as if it exists) are acceptable and can be coded in the inpatient setting, when documented at the
time of discharge.
Thank you,
AMANDA Weber RN
CDI Specialist
available via tiger text
Please use your independent medical judgment in providing your response.
[2024-04-21 15:00] VITALS: BP 135/88
[2024-04-21 15:31] LABS: Procalcitonin < 0.05 ng/ml (0.0-0.25)
[2024-04-21 15:50] LABS: Rheumatoid Agglutinin Less Than 10 IU (<10 IU)
[2024-04-21] MEDS: LIPITOR 40 MG PO (17:33)
--- NOTE | 2024-04-21 18:16 | RESPNOTE ---
Called by RN for PRN treatment for SOB/Cough. Went to speak to patient ( bedside )about what was happening, breath sounds listened to coarse few rhonchi coughing up bloody sputum which he has in a jar he stated ' I am coughing so much I am
unable to catch my breath.' explained who I was and that the only thing I had to offer him was a nebulizer patient stated ' I was getting them earlier in the week and they didn't do anything for me.' Also informed patient with DOC and cardioversion
today. RN aware and reaching out to MD for new orders.
[2024-04-21] MEDS: ROBITUSSIN AC 5 ML PO ×2 (18:37→22:40)
[2024-04-21 19:20] VITALS: BP 145/88
[2024-04-21] MEDS: TESSALON PERLES 200 MG PO (21:31)
[2024-04-21 23:25] VITALS: BP 144/89
[2024-04-21 23:45] LABS: CCP Antibody IgG/IgA 5 Units (0-19)
[2024-04-22] VITALS (10 sets, daily range): BP systolic 124–166; BP diastolic 67–114; BMI 30.5
[2024-04-22] MEDS: LASIX 40 MG IV ×3 (00:29→13:20)
[2024-04-22] MEDS: ATROVENT NEBULES 0.5 MG INH (00:52)
[2024-04-22] MEDS: XOPENEX 1.25 MG INHALANT SOLUTION INH (00:52)
[2024-04-22 01:18] LABS: Centromere Antibody 0 AU/mL (0-40); Jo-1 Antibodies 0 AU/mL (0-40); SSA 52 (Ro)(ENA) Ab, IgG 1 AU/mL (0-40); SSA 60 (Ro)(ENA) Ab, IgG 0 AU/mL (0-40); SSB (La)(ENA) Ab, IgG 0 AU/mL (0-40); Scleroderma Antibody (Scl-70) 0 AU/mL (0-40)
[2024-04-22] MEDS: MORPHINE SULFATE 2 MG IV (02:13)
--- NOTE | 2024-04-22 05:27 | W.PN.HOSP.TC ---
Addendum entered and electronically signed by Lawrence Malone MD 04/22/24 22:42:
hemoptysis possible related/exacerbated by Plavix use
Original Note:
Today's Communication/Plan
-
Transfer to IMU
bronch canceled
Oxygen supplementation as necessary goal sat 92%, BIPAP if shortness of breath worsens
Lasix diuresis as per pulm/cardio
hold Plavix
cont Xarelto d/t recent cardioversion
monitor off abx, ID eval requested
Assessment / Plan
Assessment / Plan
HPI: 64-year-old male with a past medical history of cryptogenic pneumonia, paroxysmal atrial fibrillation on Xarelto, CAD, and hypertension presents with worsening shortness of breath. This is his third ER visit in 1 week. Patient was seen on
04/12, 04/17, and today for shortness of breath. He had a chest CT done on 04/12, which shows interstitial right-sided pneumonia. He was discharged on Levaquin and steroids, which he took without improvement. He also was back into rapid atrial
fibrillation, and resumed on Xarelto and metoprolol. He was seen again in the ED on 04/17 for chest pain, and was found to have a fast heart rate. His metoprolol succinate was increased, he was discharged again. Patient reports finishing his
steroids 2 days ago. He feels that his shortness of breath has been noticeably worse overnight, and came back to the ER this morning. Associated symptoms include hemoptysis. He denies fever. No nausea, no vomiting.
#Concern for cryptogenic pneumonia
#Hemoptysis
#Shortness of breath
#Acute decompensation overnight, Hypoxic Respiratory Failure requiring up to 10L, possibly due to heart failure vs flash pulm edema vs PNA, transferred to IMU 04/22
Urine Legionella antigen negative, follow-up sputum Gram stain and culture
Patient has completed a course of levofloxacin [employer], and also received Rocephin/azithromycin in the ED
Hold off on further antibiotics for now, procalcitonin neg
COVID neg x2 04/19 04/22
ID eval requested
Appreciate pulmonology input, continue steroids bronchodilators midflow, consider BIPAP if SOB worsens, Bronchoscopy postponed tentatively Mon 04/25 pending improvement respiratory status
Plavix placed on hold last dose 04/21 due to hemoptysis, Xarelto continued due to recent cardioversion
Repeat CXR appreciated possible pulm edema (most likely) vs PNA (less likely)
#Possible Acute HFpEF vs Flash Pulm Edema
recent BNP 1999
Acute Respiratory Failure requiring 10L as above
Received once doses IV Lasix by MATERNAL CHILD NURSE overnight and Pulm/Cardio during day
DOC 04/21 noted preserved EF 60-65% Mod MR
monitor Daily weights, I/O
cont diuresis as per cardio/pulm
#Leukocytosis
Likely from steroids
trend
#Rapid atrial fibrillation
S/p PVI 2011, 2012 and 2017
S/p post cardioversion 05/2018
Appreciate cardiology input, status post successful DOC guided cardioversion on 04/21
Continue metoprolol succinate 100 mg twice daily, continue Xarelto
#Coronary artery disease
Continue Plavix, Xarelto, statin
#History of benign essential hypertension
Hold home candesartan/hydrochlorothiazide in case we need to go up on more rate controlling medications for his rapid atrial fibrillation
DVT prophylaxis�Xarelto
Full code
Discussed with patient at bedside and [place] over phone.
Total time spent to see the patient on the floor, examine the patient, review data and lab results, discuss treatment plan with patient, nursing staff around 60 minutes.
Physical Exam
General: No acute distress
HEENT: Normocephalic, Atraumatic, EOMI, MMM,
Respiratory: Diffuse crackles, nonlabored respiration on midflow
Cardiac: Normal S1/S2, regular rate and rhythm
GI: Soft, Nontender, Nondistended, Normal Bowel Sounds
Extremities: No Clubbing, Cyanosis, or Edema
Neuro: AOx3
Psych: Calm, Cooperative
Derm: No Visible lesions
Anticipated Discharge: > 48 hours
Subjective/Interval History
-
Date of Service: April 22, 2024
Overnight events reviewed significant for increased shortness of breath and sputum/hemoptysis production. Improved with IV lasix. Oxygen requirement high however 10L increased from prior 2-3 L.
Objective Data
-
Labs:
Laboratory Results
04/22/24
05:15
WBC Pending
Hgb Pending
Hct Pending
Plt Count Pending
PT Pending
INR Pending
APTT Pending
Sodium Pending
Potassium Pending
Chloride Pending
Carbon Dioxide Pending
BUN Pending
Creatinine Pending
Glucose Pending
Calcium Pending
Total Bilirubin Pending
AST Pending
ALT Pending
Alkaline Phosphatase Pending
Vital Signs:
Vital Signs
Temp Pulse Resp BP Pulse Ox
98.1 F 84 21 158/85 94
04/22/24 03:45 04/22/24 03:45 04/22/24 03:45 04/22/24 03:45 04/22/24 03:45
I&O
04/20/24 04/21/24 04/22/24
06:59 06:59 06:59
Intake Total 960 / 960 1380 / 1380 1200 / 1200
Balance 960 / 960 1380 / 1380 1200 / 1200
[2024-04-22 05:39] LABS: % Basophils 0.2 % (0-2); % Lymphocytes 2.8 % (20.5-51.1); % Monocytes 9.5 % (1.7-9.3); % Neutrophils 85.5 % (42.2-75.2); Absolute Immature Granulocytes 0.5 10^3/uL (0-0.05); Absolute Lymphocytes 0.7 10^3/uL (1.2-3.4); Absolute Monocytes 2.5 10^3/uL (0.1-0.6); Absolute Neutrophils 22.3 10^3/uL (1.4-6.5); Hematocrit 44.6 % (39.0-52.0); Hemoglobin 15.8 g/dL (13.0-18.0); Mean Corp Hgb Conc. 35.4 g/dL (33.0-37.0); Mean Corpuscular Volume 90.5 fL (80.0-94.0); Mean Platelet Volume 10.9 fL (7.4-10.4); Nucleated Red Blood Cells % 0 % (-); Platelet Count 194 10^3/uL (130-400); Red Blood Cell Count 4.93 10^6/uL (4.70-6.10); Red Cell Dist. Width 12.7 % (11.5-14.5)
[2024-04-22 05:49] LABS: INR 1.81; PT 21.1 Sec (11.4-14.6)
[2024-04-22 05:50] LABS: APTT 35.6 Sec (23.4-35.0)
[2024-04-22 06:06] LABS: ALT (SGPT) 61 U/L (0-50); AST (SGOT) 33 U/L (17-59); Albumin 3.7 g/dl (3.5-5.0); Alkaline Phosphatase 61 U/L (38-126); Blood Urea Nitrogen 52 mg/dl (9-20); Carbon Dioxide 27 mmol/L (22-30); Chloride 103 mmol/L (98-107); Estimated Creatinine Clearance 83 ml/min; Glucose 119 mg/dl (70-99); Magnesium 2.6 mg/dl (1.6-2.3); Phosphorus 5.2 mg/dl (2.5-4.5); Sodium 138 mmol/L (135-145); Total Bilirubin 1.2 mg/dl (0.2-1.3); eGFR > 60.00
--- NOTE | 2024-04-22 07:15 | PTCARENOTE ---
communicating with both Melissa MILLER and Dr. Zavala regarding patient's worsening respiratory status overnight. lungs still with rales b/l, +BERRIOS, continues with hemoptysis. per patient breathing feels slighting improved. patient continues
on mid flow oxygen. patient to be given IV Lasix, portable CXR to be done and will be moved to IMU bed. patient made aware, will continue to monitor.
[2024-04-22 07:25] LABS: Erythrocyte Sed Rate 7 mm/hour (0-20)
--- NOTE | 2024-04-22 07:34 | PTCARENOTE ---
Patient @0000 had episode of labored breathing, continuous frequent cough and hemoptysis, lungs coarse with crackles throughout. Patient stated 'I feel like I'm drowning'. TEST CENTER ADMINISTRATOR made aware, 1 x dose of 40 mg IV lasix orderd, prn neb administered,
patient placed on 10L of O2 with midflow via nasal cannula. TEST CENTER ADMINISTRATOR in to see patient, prn morphine ordered for SOB/cough. Patient symptoms improved after lasix dose administered.
--- NOTE | 2024-04-22 07:44 | W.PN.CARDCBS ---
Addendum entered and electronically signed by Tejal De La Torre DO 04/22/24 16:06:
I saw and examined the patient.
The Broadcast Supervisor's note was reviewed and I agree with the note.
Comment: Patient seen and examined in 338 bed 1 with plans to transfer to IMU. Overnight worsening shortness of breath and oxygen requirements now on 10 L with hemoptysis. No chest pain or pressure. Remains in sinus rhythm following DOC and
cardioversion 04/21/2024.
GEN: awake, alert, oriented x3. on midflow O2
HEENT: mmm
LUNGS: Rales throughout B/L
CV: Reg, S1/S2, no murmur
EXT: No edema
NEURO: Gross non-focal
SKIN: Warm, pink, dry. No rash
Plan:
-Acute on chronic hypoxic respiratory distress with acute pulmonary edema and hemoptysis following DOC/cardioversion 04/21/2024 with history of cryptic genic organizing pneumonia/hemoptysis
-Bronchoscopy canceled given oxygen requirements
-Oxygen supplementation with plan for transfer to IMU discussed with pulmonary
-IV Lasix 40 mg now and likely will need another dose this afternoon pending response
-DOC yesterday reviewed. Mitral valve structurally normal without prolapse with moderate MR. If no significant improvement with diuresis would consider repeating echocardiogram.
-Plavix [stent September 2023 ] will be held given hemoptysis but pulmonary was okay with continuing Xarelto for now given recent cardioversion
-White count is also trending up but he is on steroids; defer to pulmonary need for antibiotics.
-Fortunately he has remained maintaining sinus rhythm following recent
-attempting to obtain records from [facility]
-d/w nursing
Original Note:
Today's Communication / Plan
-
remains in SR
acute decompensation overnight with O2 requirements
will give additional 40mg IV lasix this morning
follow Cr
transfer to IMU
monitor hemoptysis. hold plavix, continue xarelto given recent CV
bronch cancelled for today
Impression / Plan
-
Primary Wafer Fabrication Operator: Dr. Edgar Starkey of [facility]
Assessment:
Presentation with SOB
ER visit x3 in last 8 days
Concern for PNA
Concern for acute CHF
Paroxysmal atrial fibrillation and atrial flutter, now with RVR
Status post flutter ablation in 2011
Status post PVI 2012
Status post repeat ablation 10/2018 with focal reconnection at CTI isthmus and LSPV
CAD with DIE FINISHER FORGING of RCA status post unsuccessful PTCA 01/2022, status post RCA PCI at [facility] 09/2023
Interstitial lung disease
Former smoker, occasional cigars
ETOH use
Elevated CRP
ECHO 06/2022: EF 65%, mild concentric LVH, mild MR, trace TR, PAP 35 to 40 mmHg
Echo 04/20/2024: EF 65%, mild concentric LVH, moderate MR, mild TR, PAP 31 mmHg
Plan:
-Patient presented with shortness of breath, etiology unclear, likely multifactorial. He has had 3 ER visits in the last 8 days. He had a been treated for a pneumonia without significant improvement
-He was in A-fib with rapid response upon arrival. Underwent cardioversion 04/21/2024, Successful in restoring sinus rhythm
-remains in SR upon review of tele
-Last evening around midnight he developed worsening shortness of breath and the feeling like 'I was drowning'. He was placed on mid flow. He was given 40 mg of IV Lasix with some improvement
-Remains on high level of supplemental oxygen this morning. Does report breathing is somewhat improved compared to last night, however not back to baseline
-With diffuse Rales on exam
-Although BUN and creatinine trending up, will give additional dose of 40 mg IV Lasix now.
-bronchoscopy which was scheduled for today cancelled
-White count trending up, could be secondary to steroids. ? Consideration for aspiration in setting of recent procedure if does not improve with diuresis
-Chest CT from 04/21 with mod B/L PNA. covid negative on admission 04/19
-Echo 04/20 with preserved EF and moderate MR
-Difficult situation as on Xarelto and Plavix, however now with some hemoptysis. Hemoglobin fortunately stable at 15.8. Would attempt to continue xarelto in setting of recent cardioversion, will hold plavix (stent was 09/2023).
-d/w pulmonary. patient for transfer to IMU
-Continue pulmonary toilet/treatment of pneumonia
-If recurs with atrial arrhythmia, would consider for antiarrhythmic drug therapy. 3 prior ablations as above
-attempting to obtain records from [facility]
-d/w nursing
Progress Note - Wafer Fabrication Operator
Subjective
Date of Service: April 22, 2024
Reports breathing was very bad overnight, now slightly improved
Objective
Labs:
04/22/24 05:15
04/22/24 05:15
Labs
Hgb 15.8 g/dL (13.0-18.0) 04/22/24 05:15
Hct 44.6 % (39.0-52.0) 04/22/24 05:15
Plt Count 194 10^3/uL (130-400) D 04/22/24 05:15
PT 21.1 Sec (11.4-14.6) H 04/22/24 05:15
INR 1.81 04/22/24 05:15
APTT 35.6 Sec (23.4-35.0) H 04/22/24 05:15
Sodium 138 mmol/L (135-145) 04/22/24 05:15
Potassium 4.0 mmol/L (3.5-5.1) 04/22/24 05:15
BUN 52 mg/dl (9-20) H 04/22/24 05:15
Creatinine 1.3 mg/dL (0.7-1.3) 04/22/24 05:15
Glucose 119 mg/dl (70-99) H 04/22/24 05:15
Troponins
04/19/24
07:50
Troponin I 0.028
Vital Signs and I&O:
Vital Signs
Temp Pulse Resp BP Pulse Ox
98.1 F 84 21 158/85 94
04/22/24 03:45 04/22/24 03:45 04/22/24 03:45 04/22/24 03:45 04/22/24 03:45
Vital Signs
Temp Pulse Resp BP Pulse Ox
98.1 F 84 21 158/85 94
04/22/24 03:45 04/22/24 03:45 04/22/24 03:45 04/22/24 03:45 04/22/24 03:45
Intake & Output
04/19/24 04/20/24 04/21/24 04/22/24
07:59 07:59 07:59 07:59
Intake Total 960 / 960 1380 / 1380 1320 / 1320
Output Total 600 / 600
Balance 960 / 960 1380 / 1380 720 / 720
Physical Exam
Physical Exam
GEN: No distress, awake, alert, oriented x3. on midflow O2
HEENT: supple, anicteric, mmm, EOMI
LUNGS: Rales throughout B/L
CV: Reg, S1/S2, no murmur
EXT: No cyanosis, clubbing, edema
NEURO: Gross non-focal
SKIN: Warm, pink, dry. No rash
[2024-04-22] MEDS: PLAVIX PO (08:07)
--- NOTE | 2024-04-22 08:09 | W.PN.PUL3 ---
Today's Communication / Plan
-
Cancel bronch with BAL given worsening acute hypoxia with tenuous respiratory status
Hold plavix and resume once hemoptysis improves - he is coughing up frothy blood-tinged sputum with clots; ok to continue xarelto but may need to stop this as well if hemoptysis continues (it has stopped as of this AM)
Aggressively diurese
Cardiology recs greatly appreciated
Continue midflow and titrate to keep sats >90-94% but if worsening SOB then place onto BiPAP
Systemic steroids
Transfer to IMU
Assessment
-
Assessment: 64-year-old male with a past medical history of A-fib on Xarelto, hypertension, history of pericarditis and COVID-19 who presents with SOB and chest pain that started about 2 weeks ago. On 04/12/2024 patient came to the ER with cough
and hemoptysis for 1 day. Hb was 10.5 that day. Symptoms began that morning with wheezing, shortness of breath and moderate amount of sputum with blood seen. He also had chest pain with tightness. CTA chest showed mild patchy GGO in the bases
with a RLL 4-5 mm nodule. He was tachycardic into the 110s, and was offered admission but he refused as his cardiology care is at [facility]. He was discharged home with 7-day course of Levaquin, 5-day course of 40 mg prednisone daily. He came back
again to the ER 5 days later with arm heaviness and chest pain, was found to be in A-fib with RVR. Heart rate improved with IV Lopressor and increasing his metoprolol dose. Again he was offered admission for management with DOC with cardioversion
but patient refused. Now that he is back he is endorsing similar symptoms with SOB + chest pain. He is afebrile in the ER to 97.7 �F, heart rate labile between 60�116, he is breathing at 15-22 breaths/min, he was saturating 96% on room air and BP
132/88. Labs showed leukocytosis to 11.3, Hb 14.1, absolute eosinophils are WNL at 100, troponin WNL at 0.028, proBNP 2700 (was 1450 on 04/12/2024), COVID-19 action negative, blood cultures were collected, and CXR showed no acute cardiopulmonary
process. He was started on Cardizem drip this morning due to rapid A-fib, and given Rocephin + doxycycline. Pulmonary service now consulted for additional management/recommendations.
Chronic conditions GLOVE STITCHER: Hypertension, paroxysmal A-fib on Xarelto, history of pericarditis, history of COVID-19 (12/2022), single-vessel CAD with BROOMCORN SEEDER of mid RCA s/p PCI in 09/2023, alcohol use disorder
Impression:
#Acute respiratory distress - concern for acute pulmonary edema with hemoptysis in setting of plavix/xarelto use
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
-I personally reviewed his recent CTA chest from 04/12/2024 and there are basilar predominant peribronchovascular groundglass opacities. I am not fully convinced that this represents a recurrence of BOW MACHINE OPERATOR, and I am more concerned with acute
decompensated heart failure given his uncontrolled A-fib/flutter especially with his elevated proBNP and his CTA chest findings are not fully consistent with cough which is more subpleural and these GGOs are more peribronchovascular; he has no
microscopic hematuria on UA, hence doubt vasculitis. The patient is very convinced that his A-fib has started after he developed his 'pneumonia' symptoms, which are very similar to his prior pneumonia symptoms when he had been diagnosed with BOW MACHINE OPERATOR in
the past
- Repeat CT chest with contrast on 04/21 showed worsening bilateral patchy GGO, particularly in RLL
#Transaminitis with elevated ALT (73)
#CAMPOS (Cr baseline ~0.8-1)
#RLL pulmonary nodule (4-5 mm) - present since 01/2022
#Mild ARMEN
#History of cryptogenic organizing pneumonia requiring prednisone with negative rheumatological workup
#Personal history of COVID-19 (12/2022)
#Alcohol use disorder
#History of single-vessel CAD with BROOMCORN SEEDER of mid RCA s/p PCI in 09/2023
#Tobacco use disorder (occasional cigar use, otherwise he quit in 2006 with a 22-[id number]-ewqo history prior)
Plan:
#Acute respiratory distress:
- Originally planned for bronch with BAL today with possible biopsy, but given his worsening oxygen requirements with tenuous respiratory status, bronch cancelled.
- Can not do biopsy anyway given he is on plavix
- Given concern for acute pulmonary edema, lasix 40mg IVP x1 ordered; stat CXR ordered as well and patient being TRX to IMU for closer monitoring.
- I discussed his case with cardiology PA, Melissa Ayala.
- Consider repeat limited echo to assure no acute valvular pathology or anthing else putting him into acute decompensated heart failure given his rapid deterioration, and he remains in NSR with rates in 80-90s
- If patient improves then we can plan to bronch sometime early next week; if he deteriorates further and gets intubated then we can do BAL through ETT; at this time he does not appear to be worsening and says he feels better during my exam with
him. Will continue to closely monitor him
#Hemoptysis:
- DDx includes heart failure in setting of antiplatelet therapy; less likely DDx also includes vasculitis vs infection (viral)
- Hold off on BAL given the above circumstances
- Keep disposable cup at bedside to quantify his hemoptysis
- Not fully convinced this is a recurrence of BOW MACHINE OPERATOR (see above), but given that he is a good historian and seems to think his SOB and 'chest gurgling' Sx started before his A-fib recurred, I agree with treating for BOW MACHINE OPERATOR with systemic steroids and
re-assess daily --> the gurgling could have been pulmonary edema
- If this truly is BOW MACHINE OPERATOR, he should rapidly improve given steroids were started on 04/19 with solumedrol 500mg IV daily--> given he had not rapidly improved, doubt this is BOW MACHINE OPERATOR. Cardiology iniitally started cardizem gtt and he underwent DOC with
cardioversion on AM of 04/21 successfully converting him into NSR. He still feels SOB with worsening hemoptysis on 04/21 despite being in NSR, and despite getting lasix on 04/20 (40mg IVP x1 - no I/O accurately reported)
- I started to wean down steroids on 04/20 - reduced from 500mg IV daily to 40mg IV q12hr --> continue this dose for now
#Abnormal CT Chest with Hx of BOW MACHINE OPERATOR and now worsening perivascular, centrilobular ground glass opacities
- Rheumatological/CTD workup checked on 04/20 � follow-up results
- Recheck echo as last on file here at was in 06/2022 although not sure he has had more recent studies as his cardiac workup was done at [facility]
-TTE done on 04/20 showing normal RV size/function, moderate MR, mild TR, mild pulmonary hypertension, with preserved LVEF at 65% with mild concentric LVH.
- DOC done 04/21 during cardioversion - moderate MR, normal JUAN with no thrombus seen, no regional WMA, LVEF 60-65%, normal RV size/function and normal pulmonary veins
- Given worsening pulmonary edema, consider repeating limited echo today depending on clinical response to diuresis
- Maintain SpO2 >90-94% with supplemental O2 --> currently on midflow NC at 11L/min --> place onto bipap if worsening SOB
- Incentive spirometer encouraged
- prn nebulized bronchodilators
- Procal is <0.05 --> doubt this is a bacterial infection. He remains non-toxic appearing and afebrile - hold off on Abx and re-assess daily
#Lung Nodule
- Regarding his RLL subpleural pulmonary nodule, this has been stable since at least January 2022, and does not need any further radiographic surveillance
#Transaminitis:
- Trend LFTs
#CAMPOS:
- trend sCr, UOP
- Replete electrolytes with K>4, Mg>2
#Other:
- Maintain euglycemia with goal BG >100 and <180
- DVT ppx
Pulmonary service will continue to closely follow along.
Total time spent today was 50 minutes for this encounter. Time includes reviewing laboratory test/imaging results, reviewing pertinent medical records, obtaining and reviewing medical history, performing an appropriate exam, ordering medications,
tests and procedures. Time also includes documentation of this encounter, coordinating patient care and communicating with other healthcare professionals. Total time does not include separately billed tests performed on this date of service.
Data:
CXR 04-17-2024: No acute cardiopulmonary process.
CT Chest with IV Contrast 04-21-2024: Multifocal pneumonia with moderate patchy groundglass parenchymal airspace disease throughout both lungs, most prominent in the right lung base
CTA Chest 04-12-2024:
There is no pulmonary embolism
There is mild groundglass airspace disease in the basilar portion of the right lower lobe, new compared with the prior study suggesting interstitial pneumonia
TTE 04-20-2024:
Normal left ventricular chamber size. Normal left ventricular systolic
function. Left ventricular ejection fraction is 65% by Garcia's method. Mild
concentric left ventricular hypertrophy. Diastolic function indeterminate due
to atrial fibrillation.
Normal right ventricular size and function.
Moderate mitral regurgitation.
Mild tricuspid regurgitation. Estimated pulmonary artery pressure of 31 mmHg,
assuming a right atrial pressure of 8 mmHg.
Compared to prior study dated 06/09/2022, mitral regurgitation was previously
mild, otherwise no significant change
Subjective Data
-
Date of Service:
Date of Service: April 22, 2024
Chief Complaint: Pulmonary Follow Up
Subjective:
Went to see patient this morning prior to planned bronchoscopy. Patient on 11 L/min via midflow, short of breath, saturating 94% and tachypneic. He says he feels better now than he did overnight which was 'really bad.' He showed me two disposable
cups that were filled with frothy blood-tinged fluid with clots that he coughed up. He denies chest pain, abdominal pain, fevers or chills.
Review of Systems
General: Other (Negative unless mentioned above)
Objective Data
Data Reviewed
Vital Signs / I&O / Oxygen:
Vital Signs
Temp Pulse Resp BP Pulse Ox
98.1 F 84 21 158/85 94
04/22/24 03:45 04/22/24 03:45 04/22/24 03:45 04/22/24 03:45 04/22/24 03:45
Intake and Output
04/21/24 04/22/24 04/23/24
06:59 06:59 06:59
Intake Total 1380 / 1380 1320 / 1320
Output Total 600 / 600
Balance 1380 / 1380 720 / 720
SaO2 94
Nasal Cannula flow liters per 10
minute
Physical Exam
General: Respiratory Distress (Negative), Comfortable and Chills (Negative)
HEENT: Normocephalic and Anicteric
Cardiovascular: S1-S2 and Peripheral Edema (Negative)
Respiratory: Wheeze (Negative), Crackles (Bilateral), Rhonchi (Negative) and Non-Labored Respirations
GI: Soft, Non Distended, Non Tender and Normal Bowel Sounds
Neurology: AO x 3 and Tremors (Negative)
Skin: Warm, Dry and Jaundice (Negative)
Labs/Micro/Reports
Lab Data
04/22/24 05:15
04/22/24 05:15
Laboratory Results
04/22/24
05:15
PT 21.1 H
INR 1.81
APTT 35.6 H
Microbiology
04/19/24 07:50 Blood/Venous Blood Culture - Preliminary
No Growth in 72 hours- Final report to follow
04/21/24 12:13 Sputum Gram Stain - Preliminary
04/19/24 08:10 Blood/Venous Blood Culture - Preliminary
No Growth in 48 hours- Final report to follow
04/19/24 08:10 Urine Legionella Urinary Antigen - Final
Negative for Legionella pneumophila Serogroup 1 antigen.
A negative result does not rule out the possiblity of
Legionella infection due to other serogroups or species of
Legionella. Clinical correlation is recommended.
[2024-04-22] MEDS: VISBIOME 1 CAP PO (08:12)
[2024-04-22] MEDS: THERAGRAN 0.5 TABLET PO ×2 (08:12→19:44)
[2024-04-22] MEDS: SOLU-MEDROL PF 40 MG IV ×2 (08:15→19:45)
[2024-04-22] MEDS: TOPROL XL 100 MG PO ×2 (08:15→19:45)
[2024-04-22] MEDS: COSOPT EYE DROPS 1 DROP BOTH EYES ×2 (08:15→21:52)
[2024-04-22] MEDS: XARELTO 20 MG PO (08:27)
--- NOTE | 2024-04-22 09:28 | PTCARENOTE ---
Ara Kang RN given telephone report. Patient transferred with belongings to room 3351 via stretcher.
--- NOTE | 2024-04-22 10:30 | PTCARENOTE ---
Received into 3351, IMU monitors placed SR/ PACs 97% on 10L midflow O2. Persistent dry cough- states he does cough up blood- will get a cup to quantify. PRN Tessalon pearls given. Coarse Rhonchi/rales throughout. Ambulatory in room- safe with
wires. PO diet ordered.
[2024-04-22 10:32] LABS: COVID-19 Antigen Negative (Negative)
[2024-04-22] MEDS: TESSALON PERLES 200 MG PO ×2 (10:33→17:40)
--- NOTE | 2024-04-22 11:41 | CM ---
Oxygen need increased patient 10L of O2 with midflow via nasal cannula.
On IV Lasix and prn neb administered .
Moved to IMU .
PLAN :CM will continue to assist and assess with dc plan as needed.
--- NOTE | 2024-04-22 12:24 | PTCARENOTE ---
O2 turned down to 8L - 94%. RT turned down to 6L 97% - Currently at 4L will monitor
--- NOTE | 2024-04-22 12:27 | CON.ID ---
Consultation
-
Date/Time Consultation Requested: 04/22/24 8:33
Date/Time Consultation Performed: 04/22/24 12:27
Requesting Provider: Dr Malone
Performing Provider: Dr Simons
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
Chief Complaint / Past History
Chief Complaint
shortness of breath
History of Present Illness
Mr Bernabe is a 64 year old male with history of cryptogenic pneumonia, myopericarditis, PAF on xarelto, CAD who presented here for progressive shortness of breath beginning about two weeks ago. Has been seen in the ER x3 this week. CT 04/12 with
interstitial R sided pneumonia - took levaquin x 7 days and prednisone 40 mg PO qday x5 days without improvement. Developed rapid A fib, started on metoprolol. Finished steroids on 04/17. Dyspnea notably progressed 04/18 (two days off of steroids),
developed new hemoptysis, no fevers and represented here. Hemoptysis is minimal -streaky. Relates shortness of breath to bouts of afib. No PND. No sick contacts. No nausea or vomiting.
Note history of Cryptogenic organizing PNA for which he follows in pulmonary office. Endobronchial biopsy 08/2021 showed reactive pneumocytes with organizing fibrosis. RUL BAL was negative at that time for AFB and fungus. HIV NAAT negative at
that time, I dont see 4th gen test. Covid PCR negative 08/18/21, and covid ag testing neg 09/10/21 also. Weight stable compared to 2020. Reports 3 subsequent episodes with response to steroids.
Since arrival here and during previous admissions he has been afebrile, now requiring midflow NC at 10 L with sats 95% - previously on room air, HR 80-90s, wbc 11 on arrival on , hgb 15.8, plt 194, L shift was not present on 04/12 evaluation but
present on 04/17 (on steroids) and again noted today 04/22. ESR 6 and 7. Cr baseline 0.8, currently 1.3, t bili 1.2, ast 33, alt 61, alk phos 61, crp on arrival 22.6 now 10, procalcitonin <0.05, RF <10, CCP 5 (normal), PR3 ab pending, MPO pending,
Letty-1 and SSA/B negative, anti centromere neg, GBM pending, Covid ag neg x2 this admission, 04/21 CT chest with IV contrast: Multifocal pneumonia with moderate patchy groundglass parenchymal airspace disease throughout both lungs, most prominent in
the right lung base. no lymphadenopathy or pleural effusion or mass. 04/21 resp culture usual resp gina, legionella urine ag neg, blood cultures x2ng at 72 hrs, 08/22/21 RUL endobronchial bx: organizing fibrosis and reactive pneumocytes - no
fungal organisms on GMS. This visit he has been started initially on methylprednisone 500 mg IV q24 hours without significant improvment and now on methylprednisolone 40 mg IV q24 hrs and this continues however he is with increasing O2
requirements. On 04/19 he received a dose of ceftriaxone, no further antibiotics since. ID is consulted for
Past History
Additional Past Medical History:
atrial fibrillation, CAD, hypertension, cryptogenic pneumonia, myopericarditis
Additional Past Surgical History:
Tonsilectomy and Other (Bilateral knee surgeries, PVI ablation 2011, 2012 and 2018, a flutter ablation 2011, colonoscopy
Allergy History:
No Known Allergies Allergy (Verified 04/19/24 07:03)
Medications Reviewed: Yes
Social History
Tobacco: Smoker (cigars)
Alcohol: Occasional
Personal:
Family History
Family History: Not Pertinent
Review of Systems
Review of Systems
General: Negative Fever or Chills
All systems: All other systems were reviewed and were negative
Vital Signs
Temp Pulse Resp BP Pulse Ox
98.3 F 83 17 166/98 95
04/22/24 11:12 04/22/24 07:40 04/22/24 07:40 04/22/24 07:40 04/22/24 07:40
Physical Exam
Physical Exam
Constitutional: No Acute Distress
Cardiovascular: Regular Rate and S1/S2; Negative Murmur or Rub
Pulmonary: Clear and Symmetric; Negative Wheezes, Rales or Rhonchi
Gastrointestinal: Soft, Non Tender, Non Distended and Normal Bowel Sounds
Skin: Warm and Dry; Negative Rash or Jaundice
Lab / Diagnostic Study Results
04/22/24 05:15
04/22/24 05:15
Abs Immat Gran (auto) 0.5 10^3/uL (0-0.05) H 04/22/24 05:15
Absolute Neuts (auto) 22.3 10^3/uL (1.4-6.5) H 04/22/24 05:15
Absolute Lymphs (auto) 0.7 10^3/uL (1.2-3.4) L 04/22/24 05:15
Absolute Monos (auto) 2.5 10^3/uL (0.1-0.6) H 04/22/24 05:15
Absolute Basos (auto) 0.0 10^3/uL (0-0.2) 04/22/24 05:15
Immature Gran % 2.0 % (0-0.5) H 04/22/24 05:15
Neutrophils % 85.5 % (42.2-75.2) H 04/22/24 05:15
Lymphocytes % 2.8 % (20.5-51.1) L 04/22/24 05:15
Monocytes % 9.5 % (1.7-9.3) H 04/22/24 05:15
Eosinophils % 0.0 % (0-6) 04/22/24 05:15
Basophils % 0.2 % (0-2) 04/22/24 05:15
ESR 7 mm/hour (0-20) 04/22/24 05:15
PT 21.1 Sec (11.4-14.6) H 04/22/24 05:15
INR 1.81 04/22/24 05:15
Lactic Acid Cancelled 04/19/24 11:45
C-Reactive Protein 10.00 mg/L (0.0-10.00) 04/22/24 05:15
Procalcitonin < 0.05 ng/ml (0.0-0.25) 04/21/24 14:46
Microbiology Results
Micro:
04/21/24 12:13 Respiratory Culture - Preliminary
Sputum Usual Respiratory Gina
Gram Stain - Preliminary
04/19/24 08:10 Blood Culture - Preliminary
Blood/Venous No Growth in 72 hours- Final report to follow
04/19/24 07:50 Blood Culture - Preliminary
Blood/Venous No Growth in 72 hours- Final report to follow
04/19/24 08:10 Legionella Urinary Antigen - Final
Urine Negative for Legionella pneumophila Serogroup 1 antigen.
A negative result does not rule out the possiblity of
Legionella infection due to other serogroups or species of
Legionella. Clinical correlation is recommended.
Assessment / Plan
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
Not known to be immunosuppressed, no known rheumatologic disease
- first diagnosed 2020, had bronchoscopy and pathology at that time - rheumatologic workup was negative at that time; responded to steroids at that time and with 3 subsequent episodes
- note that patient has not responded as pulmonary would expect to high dose steroids - solumedrol 500 mg IV and dose now titrated down
- check cryoglobulins, c3, c4, hep B/C serologies. Note neg hep C 2017.
- check immunoglobulins
- HIV PCR was negative 2020; HIV 4th gen already ordered
- covid ag negative this visit x2
- sputum culture negative
- procalcitonin negative
- no eosinophilia
- steroid management per pulmonary, no objection from my perspective
Hemoptysis
- agree that could be due to antiplatelet therapy
- no recorded fevers, weight is stable compared to 2020, with streaky hemoptysis with progression on steroids
- already had trial of a quinolone without improvement
- noncovid viral infections are possible - management would be supportive
--- NOTE | 2024-04-22 15:46 | PN.CDI ---
CDI
- -
CDI:
Physician Documentation Request
Admit Date: 04/19/24 12:10
Dear Doctor Kira,
Clinical Indicators:
Patient admitted with hemoptysis and shortness of breath.
04/22 PN, 'Plavix placed on hold last dose 04/21 due to hemoptysis, Xarelto continued due to recent cardioversion'
Please clarify the likely relationship between the hemoptysis and Plavix use:
Yes, hemoptysis is related to/associated with/exacerbated by Plavix
No, hemoptysis is not related to/associated with/exacerbated by Plavix but it is due to ___. (Please specify)
Unable to determine
Use of terms such as suspected, likely, concern for, or probable (associated with a specific diagnosis that is being evaluated, monitored, or treated as if it exists) are acceptable and can be coded in the inpatient setting, when documented at the
time of discharge.
Thank you,
AMANDA Weber RN
CDI Specialist
available via tiger text
Please use your independent medical judgment in providing your response.
[2024-04-22] MEDS: LIPITOR 40 MG PO (17:40)
--- NOTE | 2024-04-22 18:03 | PTCARENOTE ---
Weaned off O2 92% on RAIR- ambulates ad aditi. Denies SOB however is still coughing small amt hemoptysis. PRN Teena wilber given again. CHF packet given-and reviewed a lot of info including the fluid restriction as he only drink seltzer allen --
encouraged to watch videos.
--- NOTE | 2024-04-22 20:00 | PTCARENOTE ---
Resumed care of pt sitting in chair watching movie, AAOx3. HR in the 70's-80's in NSR on the monitor. Pt with short burst ST with HR in the 140's, returned to 80's. POX 97% on RA. BERRIOS, POX drops to 88% with activity. Crackles 1/2 up B/L. Occasional
dry cough, pt reports no longer productive. Pt ambulating independently to bathroom when needed. Right AC int capped. No issues to report. Call collazo in reach. Will continue to monitor.
--- NOTE | 2024-04-22 22:30 | PTCARENOTE ---
POX sustaining 87% on RA while sleeping. 2 LO2 NC applied. POX now 94%.No other changes in assessment noted at this time. Will continue to monitor.
[2024-04-23] VITALS (13 sets, daily range): BP systolic 120–151; BP diastolic 72–97; BMI 29.8
[2024-04-23 05:57] LABS: Hematocrit 42.5 % (39.0-52.0); Hemoglobin 15.2 g/dL (13.0-18.0); Mean Corp Hgb Conc. 35.8 g/dL (33.0-37.0); Mean Corpuscular Hgb 32.2 pg (27.0-31.0); Mean Platelet Volume 10.6 fL (7.4-10.4); Platelet Count 181 10^3/uL (130-400); Red Blood Cell Count 4.72 10^6/uL (4.70-6.10); Red Cell Dist. Width 12.7 % (11.5-14.5); White Blood Cell Count 15.4 10^3/uL (4.8-10.8)
[2024-04-23 06:17] LABS: Blood Urea Nitrogen 51 mg/dl (9-20); Calcium 9.1 mg/dl (8.4-10.2); Carbon Dioxide 28 mmol/L (22-30); Chloride 101 mmol/L (98-107); Estimated Creatinine Clearance 106 ml/min; Glucose 186 mg/dl (70-99); Magnesium 2.8 mg/dl (1.6-2.3); Phosphorus 3.8 mg/dl (2.5-4.5); Potassium 3.9 mmol/L (3.5-5.1); Sodium 137 mmol/L (135-145); eGFR > 60.00
[2024-04-23] MEDS: THERAGRAN 0.5 TABLET PO ×2 (08:40→20:20)
[2024-04-23] MEDS: SOLU-MEDROL PF 40 MG IV ×2 (08:40→20:20)
[2024-04-23] MEDS: TOPROL XL 100 MG PO ×2 (08:41→20:19)
[2024-04-23] MEDS: VISBIOME 1 CAP PO (08:41)
[2024-04-23] MEDS: XARELTO PO ×2 (08:43→09:51)
[2024-04-23] MEDS: COSOPT EYE DROPS 1 DROP BOTH EYES ×2 (08:44→20:18)
[2024-04-23] MEDS: TESSALON PERLES 200 MG PO (08:47)
--- NOTE | 2024-04-23 09:21 | W.PN.HOSP.TC ---
Today's Communication/Plan
-
see bold
Assessment / Plan
Assessment / Plan
HPI: 64-year-old male with a past medical history of cryptogenic pneumonia, paroxysmal atrial fibrillation on Xarelto, CAD, and hypertension presents with worsening shortness of breath. This is his third ER visit in 1 week. Patient was seen on
04/12, 04/17, and today for shortness of breath. He had a chest CT done on 04/12, which shows interstitial right-sided pneumonia. He was discharged on Levaquin and steroids, which he took without improvement. He also was back into rapid atrial
fibrillation, and resumed on Xarelto and metoprolol. He was seen again in the ED on 04/17 for chest pain, and was found to have a fast heart rate. His metoprolol succinate was increased, he was discharged again. Patient reports finishing his
steroids 2 days ago. He feels that his shortness of breath has been noticeably worse overnight, and came back to the ER this morning. Associated symptoms include hemoptysis. He denies fever. No nausea, no vomiting.
#Concern for cryptogenic pneumonia
#Hemoptysis
#Shortness of breath
#Acute decompensation overnight, Hypoxic Respiratory Failure requiring up to 10L, possibly due to heart failure vs flash pulm edema vs PNA, transferred to IMU 04/22
Hypoxia resolved, currently on room air
Urine Legionella antigen negative, follow-up sputum Gram stain and culture
Patient has completed a course of levofloxacin [employer], and also received Rocephin/azithromycin in the ED
Procalcitonin neg. COVID neg x2 04/19 04/22
Appreciate pulmonology input, continue steroids bronchodilators. Bronchoscopy postponed tentatively Mon 04/25 pending improvement respiratory status
Plavix placed on hold last dose 04/21 due to hemoptysis, Xarelto continued due to recent cardioversion
Repeat CXR appreciated possible pulm edema (most likely) vs PNA (less likely)
Seen by ID, recommend monitoring off antibiotics
#Possible Acute HFpEF vs Flash Pulm Edema
#Acute Respiratory Failure requiring 10L as above
Recent BNP 1999
Received once doses IV Lasix by BLACKJACK SUPERVISOR overnight and Pulm/Cardio during day
DOC 04/21 noted preserved EF 60-65% Mod MR
Continue IV Lasix as per cardio/pulm, trend creatinine, trend daily weights
#Leukocytosis
Likely from steroids, trend
#Rapid atrial fibrillation
S/p PVI 2011, 2012 and 2017
S/p post cardioversion 05/2018
Appreciate cardiology input, status post successful DOC guided cardioversion on 04/21
Continue metoprolol succinate 100 mg twice daily, continue Xarelto
04/23�start Tikosyn loading
#Coronary artery disease
Continue Xarelto, statin
Plavix discontinued secondary to hemoptysis
#History of benign essential hypertension
Hold home candesartan/hydrochlorothiazide in case we need to go up on more rate controlling medications for his rapid atrial fibrillation
DVT prophylaxis�Xarelto
Full code
Discussed with patient at bedside and [place] over phone 04/23
Total time spent to see the patient on the floor, examine the patient, review data and lab results, discuss treatment plan with patient, nursing staff around 50 minutes.
Physical Exam
General: No acute distress
HEENT: Normocephalic, Atraumatic, EOMI, MMM,
Respiratory: Diffuse crackles, nonlabored respiration on midflow
Cardiac: Normal S1/S2, regular rate and rhythm
GI: Soft, Nontender, Nondistended, Normal Bowel Sounds
Extremities: No Clubbing, Cyanosis, or Edema
Neuro: AOx3
Psych: Calm, Cooperative
Derm: No Visible lesions
Anticipated Discharge: > 48 hours
Subjective/Interval History
-
Date of Service: April 23, 2024
Patient reports breathing much improved today. Continues to have intermittent hemoptysis. No fever, no vomiting.
Objective Data
-
Labs:
Laboratory Results
04/23/24
05:46
WBC 15.4 H
Hgb 15.2
Hct 42.5
Plt Count 181
Sodium 137
Potassium 3.9
Chloride 101
Carbon Dioxide 28
BUN 51 H
Creatinine 0.9
Glucose 186 H
Calcium 9.1
Vital Signs:
Vital Signs
Temp Pulse Resp BP Pulse Ox
98.1 F 65 15 136/81 95
04/23/24 07:26 04/23/24 08:41 04/23/24 08:00 04/23/24 08:41 04/23/24 08:00
I&O
04/22/24 04/23/24 04/24/24
06:59 06:59 06:59
Intake Total 1320 / 1320 940 / 940
Output Total 600 / 600 2150 / 2150
Balance 720 / 720 -1210 / -1210
[2024-04-23 09:35] LABS: HIV Combo Negative (Negative)
--- NOTE | 2024-04-23 10:16 | W.PN.CARDCBS ---
Addendum entered and electronically signed by Tejal De La Torre DO 04/23/24 14:25:
I saw and examined the patient.
The Roving Technician's note was reviewed and I agree with the note.
Comment: Patient seen and examined several times today. Second visit to discuss Tikosyn he was accompanied by son and . Overall Wisam is feeling better with less shortness of breath now on room air and less hemoptysis. No chest pain or
pressure.
GEN:NAD; ambulating around the room on room air
HEENT: mmm
LUNGS: Bronchovesicular breath sounds with improved breath sounds right side with very minimal crackles
CV: Reg, S1/S2, no murmur
EXT: No lower extremity edema
NEURO: Gross non-focal
Plan:
Acute respiratory distress 04/22 following DOC/ cardioversion 04/21 with hemoptysis in the setting of Xarelto/Plavix use
-Fortunately he rapidly improved with IV Lasix and steroids
-Likely multifactorial with underlying lung disease process, possible aspiration and mild heart failure with preserved ejection fraction
-Pulmonary input appreciated: Had been scheduled for bronc with BAL which was canceled due to tenuous respiratory status. Per pulmonary, procedure will be rescheduled possibly next week versus an outpatient
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
-Appreciate ID input
-Will give an additional dose of IV Lasix today
-Plavix has been placed on hold but will resume once is safer given recent stent in September 2023
-Xarelto initially held this morning given ongoing hemoptysis. Case discussed with pulmonary and they have cleared him to resume Xarelto.
Paroxysmal atrial fibrillation and flutter status post remote ablations and recent DOC cardioversion 04/21/2024
-Maintaining sinus rhythm but had brief runs of A-fib overnight on telemetry
-Cleared by pulmonary to resume Xarelto
-No left atrial appendage thrombus on DOC
-Discussed with Dr. Mason EP plan: Will initiate Tikosyn this admission
-Transfer to IVU for Tikosyn initiation, telemetry and EKG protocols
-Keep K greater than 4, mag greater than 2
-Patient follows with cardiology and EP at [facility]. Will update his volunteer services manager, Dr. Lund next week
Coronary artery disease status post RCA PCI PAD September 2023
-Fortunately no chest pain or pressure suggestive of angina
-Plan to resume Plavix when able
Original Note:
Today's Communication / Plan
-
IV lasix
holding xarelto with ongoing hemoptysis, pulm to eval. plavix already on hold
wean supp O2
consider start AAD therapy as in SR to maintain
Impression / Plan
-
Primary Cruise Coordinator: Dr. Edgar Starkey of [place]
Assessment:
Presentation with SOB
ER visit x3 in last 8 days
Concern for PNA
Concern for acute CHF
Paroxysmal atrial fibrillation and atrial flutter, now with RVR
Status post flutter ablation in 2011
Status post PVI 2012
Status post repeat ablation 10/2018 with focal reconnection at CTI isthmus and LSPV
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
Interstitial lung disease
Former smoker, occasional cigars
ETOH use
Elevated CRP
ECHO 06/2022: EF 65%, mild concentric LVH, mild MR, trace TR, PAP 35 to 40 mmHg
Echo 04/20/2024: EF 65%, mild concentric LVH, moderate MR, mild TR, PAP 31 mmHg
Plan:
-Patient presented with shortness of breath, etiology unclear, likely multifactorial. He has had 3 ER visits in the last 8 days. He had a been treated for a pneumonia without significant improvement
-He was in A-fib with rapid response upon arrival. Underwent cardioversion 04/21/2024, Successful in restoring sinus rhythm
-evening post CV developed worsening SOB with increased O2 requirements. being diuresed with improvement, continue IV lasix. Cr stable
-wean supp O2 as able
-? also component of aspiration, defer to pulm
-Echo 04/20 with preserved EF and moderate MR
-he remains with hemoptysis, plavix on hold starting 04/22 (stent was 09/2023). continues with hemoptysis this AM, will hold xarelto for now until pulm evaluates. ideally resume as soon as possible given recent CV
-hgb stable at 15.2
-was for bronch this admission, however held due to worsening respiratory status
-he remains in SR however with frequent ectopy and several brief runs of afib overnight on review of tele. consider starting AAD to maintain SR - likely tikosyn. 3 prior ablations as above
-OP follow up with [facility] horticulture worker
-d/w nursing, pulmonary
-d/w via telephone while in patient room
Progress Note - Cruise Coordinator
Subjective
Date of Service: April 23, 2024
reports breathing improving
Objective
Labs:
04/23/24 05:46
04/23/24 05:46
Labs
Hgb 15.2 g/dL (13.0-18.0) 04/23/24 05:46
Hct 42.5 % (39.0-52.0) 04/23/24 05:46
Plt Count 181 10^3/uL (130-400) 04/23/24 05:46
PT 21.1 Sec (11.4-14.6) H 04/22/24 05:15
INR 1.81 04/22/24 05:15
APTT 35.6 Sec (23.4-35.0) H 04/22/24 05:15
Sodium 137 mmol/L (135-145) 04/23/24 05:46
Potassium 3.9 mmol/L (3.5-5.1) 04/23/24 05:46
BUN 51 mg/dl (9-20) H 04/23/24 05:46
Creatinine 0.9 mg/dL (0.7-1.3) 04/23/24 05:46
Glucose 186 mg/dl (70-99) H 04/23/24 05:46
Vital Signs and I&O:
Vital Signs
Temp Pulse Resp BP Pulse Ox
98.1 F 65 15 136/81 95
04/23/24 07:26 04/23/24 08:41 04/23/24 08:00 04/23/24 08:41 04/23/24 08:00
Vital Signs
Temp Pulse Resp BP Pulse Ox
98.1 F 65 15 136/81 95
04/23/24 07:26 04/23/24 08:41 04/23/24 08:00 04/23/24 08:41 04/23/24 08:00
Intake & Output
04/21/24 04/22/24 04/23/24 04/24/24
07:59 07:59 07:59 07:59
Intake Total 1380 / 1380 1320 / 1320 940 / 940
Output Total 600 / 600 2150 / 2150
Balance 1380 / 1380 720 / 720 -1210 / -1210
Physical Exam
Physical Exam
GEN: No distress, awake, alert, oriented x3. on supp O2
HEENT: supple, anicteric, mmm, EOMI
LUNGS: Crackles B/L bases
CV: Reg, S1/S2, no murmur
EXT: No cyanosis, clubbing. trace edema of B/L LE
NEURO: Gross non-focal
SKIN: Warm, pink, dry. No rash
--- NOTE | 2024-04-23 10:39 | W.PN.ID1 ---
Date of Service
Date of Service: April 23, 2024
Today's Communication
appears to be responding to steroids
testing as above pending
Assessment / Plan
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
Not known to be immunosuppressed, no known rheumatologic disease
- first diagnosed 2020, had bronchoscopy and pathology at that time - rheumatologic workup was negative at that time; responded to steroids at that time and with 3 subsequent episodes
- seems to be responding to steroids
- await cryoglobulins, c3, c4, hep B/C serologies. Note neg hep C 2017.
- await immunoglobulins
- HIV 4th gen pending - patient gave me verbal consent for the test yesterday; HIV PCR was negative 2020
- covid ag negative this visit x2
- steroid management per pulmonary, no objection from my perspective
- follow up with pulmonary service
Hemoptysis
- agree that could be due to antiplatelet therapy
- no recorded fevers, weight is stable compared to 2020, with streaky hemoptysis with progression on steroids
- already had trial of a quinolone without improvement
- noncovid viral infections are possible - management would be supportive
Chief Complaint
-: Leukocytosis and Other (cryptogenic organizing pneumonia )
Subjective / Review of Systems
afebrile
bp stable
back to room air
leukocytosis in context of steroids
cr 0.9
blood cultures no growth to date
Vital Signs / Physical Exam
Vital Signs
Vital Signs
Temp Pulse Resp BP Pulse Ox
98.1 F 65 15 136/81 95
04/23/24 07:26 04/23/24 08:41 04/23/24 08:00 04/23/24 08:41 04/23/24 08:00
Objective Data
Lab Data
Lab Results
04/23/24 05:46
04/23/24 05:46
ESR 7 mm/hour (0-20) 04/22/24 05:15
PT 21.1 Sec (11.4-14.6) H 04/22/24 05:15
INR 1.81 04/22/24 05:15
APTT 35.6 Sec (23.4-35.0) H 04/22/24 05:15
Estimated Creat Clear 106 ml/min 04/23/24 05:46
Lactic Acid Cancelled 04/19/24 11:45
Total Bilirubin 1.2 mg/dl (0.2-1.3) 04/22/24 05:15
AST 33 U/L (17-59) 04/22/24 05:15
ALT 61 U/L (0-50) H 04/22/24 05:15
Alkaline Phosphatase 61 U/L (38-126) 04/22/24 05:15
C-Reactive Protein 10.00 mg/L (0.0-10.00) 04/22/24 05:15
Most recent labs reviewed.
Micro Results:
04/21/24 12:13 Respiratory Culture - Final
Sputum Usual Respiratory Agueda
Gram Stain - Final
04/19/24 08:10 Blood Culture - Preliminary
Blood/Venous No Growth in 4 days- Final report to follow
04/19/24 07:50 Blood Culture - Preliminary
Blood/Venous No Growth in 4 days- Final report to follow
04/19/24 08:10 Legionella Urinary Antigen - Final
Urine Negative for Legionella pneumophila Serogroup 1 antigen.
A negative result does not rule out the possiblity of
Legionella infection due to other serogroups or species of
Legionella. Clinical correlation is recommended.
--- NOTE | 2024-04-23 10:44 | W.CARD.TIKOS ---
Initiate Tikosyn
-
I verify that the patient has not taken any verapamil (Isoptin/Calan), ketoconazole (Nizoral), cimetidine (Tagamet), trimethoprim (Trimpex), trimethoprim/sulfamethoxazole (Bactrim), megesterol (Megace), prochlorperazine (Compazine),
hydrochlorothiazide (HCTZ), dolutegravir (Tivicay) or any Class I or Class III anti-arrhythmic within the last three days
AND
I verify that the patient has not taken amiodarone within the last THREE months, or that the patient's amiodarone plasma concentration is <0.3 mcg/mL.
Creatinine 0.9 mg/dL (0.7-1.3) 04/23/24 05:46
Estimated Creat Clear 106 ml/min 04/23/24 05:46
Does patient have a Ventricular Conduction Abnormality: No
I have assessed the baseline QTc interval (using QT for heart rate less than 60 bpm) and deemed the patient is appropriate for Dofetilide therapy. I understand that Tikosyn is contraindicated if the QTc is >440msec (500msec in patients with
ventricular conduction abnormalities).
Baseline QTc (in msec): 416
QTc interval is greater than 440msec without conduction abnormality OR greater than 500msec with a conduction abnormality, but acceptable to proceed per Cardiology attending.
Ordering Physician: Tejal De La Torre
[2024-04-23] MEDS: LASIX 40 MG IV (10:56)
--- NOTE | 2024-04-23 11:02 | W.PN.PUL3 ---
Today's Communication / Plan
-
Continue MP
Monitor hemoptysis
Resume xarelto
IVU
Assessment
-
Assessment:
64-year-old male with a past medical history of A-fib on Xarelto, hypertension, history of pericarditis and COVID-19 who presents with SOB and chest pain that started about 2 weeks ago. On 04/12/2024 patient came to the ER with cough and hemoptysis
for 1 day. Hb was 10.5 that day. Symptoms began that morning with wheezing, shortness of breath and moderate amount of sputum with blood seen. He also had chest pain with tightness. CTA chest showed mild patchy GGO in the bases with a RLL 4-5 mm
nodule. He was tachycardic into the 110s, and was offered admission but he refused as his cardiology care is at [facility]. He was discharged home with 7-day course of Levaquin, 5-day course of 40 mg prednisone daily. He came back again to the ER 5
days later with arm heaviness and chest pain, was found to be in A-fib with RVR. Heart rate improved with IV Lopressor and increasing his metoprolol dose. Again he was offered admission for management with DOC with cardioversion but patient
refused. Now that he is back he is endorsing similar symptoms with SOB + chest pain. He is afebrile in the ER to 97.7 �F, heart rate labile between 60�116, he is breathing at 15-22 breaths/min, he was saturating 96% on room air and BP 132/88.
Labs showed leukocytosis to 11.3, Hb 14.1, absolute eosinophils are WNL at 100, troponin WNL at 0.028, proBNP 2700 (was 1450 on 04/12/2024), COVID-19 action negative, blood cultures were collected, and CXR showed no acute cardiopulmonary process. He
was started on Cardizem drip due to rapid A-fib, and given Rocephin + doxycycline. Pulmonary service now consulted 04-19 for additional management/recommendations.
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
Impression:
#Acute respiratory distress - concern for acute pulmonary edema with hemoptysis in setting of plavix/xarelto use
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
-CTA chest from 04/12/2024: basilar predominant peribronchovascular GGOs. No compelling evidence of recurrence of EYEGLASS INSPECTOR, but suspected acute decompensated heart failure given his uncontrolled A-fib/flutter especially with his elevated proBNP
Has no microscopic hematuria on UA, hence doubt vasculitis. The patient is very convinced that his A-fib has started after he developed his 'pneumonia' symptoms, which are very similar to his prior pneumonia symptoms when he had been diagnosed
with EYEGLASS INSPECTOR in the past
- Repeat CT chest with contrast on 04/21 showed worsening bilateral patchy GGO, particularly in RLL
#Transaminitis with elevated ALT (73)
#CAMPOS (Cr baseline ~0.8-1)
#RLL pulmonary nodule (4-5 mm) - present since 01/2022
#Mild ARMEN
#History of cryptogenic organizing pneumonia requiring prednisone with negative rheumatological workup
#Personal history of COVID-19 (12/2022)
#Alcohol use disorder
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
#Tobacco use disorder (occasional cigar use, otherwise he quit in 2006 with a [id number] history prior)
Plan:
#Acute respiratory distress:
- Originally planned for bronch with BAL 04-22 with possible biopsy, but given his worsening oxygen requirements with tenuous respiratory status, bronch cancelled.
- Plavix on hold
- Given concern for acute pulmonary edema, lasix 40mg IVP x1
- TRX to IMU for closer monitoring.
- Consider repeat limited echo to assure no acute valvular pathology or anthing else putting him into acute decompensated heart failure given his rapid deterioration, and he remains in NSR with rates in 80-90s
- If patient improves then we can plan to bronch sometime early next week; if he deteriorates further and gets intubated then we can do BAL through ETT
#Hemoptysis:
- DDx includes heart failure in setting of antiplatelet therapy; less likely DDx also includes vasculitis vs infection (viral)
- Held off on BAL 04-22
Clopidogrel held 04-20
Rivaroxaban held 04-23
- Keep disposable cup at bedside to quantify his hemoptysis
- Not fully convinced this is a recurrence of EYEGLASS INSPECTOR (see above), but given that he is a good historian and seems to think his SOB and 'chest gurgling' Sx started before his A-fib recurred. Will continue treating for EYEGLASS INSPECTOR with systemic steroids and
re-assess daily
-Started on 04/19 with solumedrol 500mg IV daily. MP down to 40 mg IV qd since 04-20, continue
Since 04-23, he has produced about 5 mL or pinkish hemoptysis. on 04-22 produced up to 10 mm of dark hemoptysis. Reportedly he had produced up to 1 cup of hemoptysis earlier this admission
He continues on systemic corticosteroids at above dose
Unfortunately still smoking occasional cigar at home along with bourbon
Denies epistaxis
Denies hematuria
Denies hematemesis
Denies hematochezia or melena
Denies chest pain
CXR 04-23: portable film, reviewed, pending report. Improved pulm vasc congestion (considering difference in underpenetrated film 04-22
I see no current contraindication to resume rivaroxaban 04-23. Will continue monitoring hemoptysis
Cardiology initially started cardizem gtt and he underwent DOC with cardioversion on AM of 04/21 successfully converting him into NSR.
#Abnormal CT Chest with Hx of EYEGLASS INSPECTOR and now worsening perivascular, centrilobular ground glass opacities
- Rheumatological/CTD workup checked on 04/20 � follow-up results
- Recheck echo as last on file here at was in 06/2022 although not sure he has had more recent studies as his cardiac workup was done at [facility]
-TTE done on 04/20 showing normal RV size/function, moderate MR, mild TR, mild pulmonary hypertension, with preserved LVEF at 65% with mild concentric LVH.
- DOC done 04/21 during cardioversion - moderate MR, normal JUAN with no thrombus seen, no regional WMA, LVEF 60-65%, normal RV size/function and normal pulmonary veins
- Maintain SpO2 >90-94% with supplemental O2 --> currently on midflow NC at 11L/min --> place onto bipap if worsening SOB
- Incentive spirometer encouraged
- prn nebulized bronchodilators
- Procal is <0.05 --> doubt this is a bacterial infection. He remains non-toxic appearing and afebrile - hold off on Abx and re-assess daily
#Lung Nodule
- Regarding his RLL subpleural pulmonary nodule, this has been stable since at least January 2022, and does not need any further radiographic surveillance
#Transaminitis:
- Trend LFTs
#CAMPOS:
- trend sCr, UOP
- Replete electrolytes with K>4, Mg>2
#Other:
- Maintain euglycemia with goal BG >100 and <180
- DVT ppx
Strongly advised to quit smoking on a permanent fashion. very supportive, she plans to get rid of any tobacco and paraphernalia at home
In view of frequent ectopy and several brief runs of AFib, transferring to IVU 04-23 to start dofetilide (tikosyn)
D/w and Mrs Bernabe, all questions answered
D/w Dr De La Torre via TT 04-23
Diagnostic tests:
CT Chest with IV Contrast 04-21-2024: Multifocal pneumonia with moderate patchy groundglass parenchymal airspace disease throughout both lungs, most prominent in the right lung base
CTA Chest 04-12-2024:
There is no pulmonary embolism
There is mild groundglass airspace disease in the basilar portion of the right lower lobe, new compared with the prior study suggesting interstitial pneumonia
TTE 04-20-2024:
Normal left ventricular chamber size. Normal left ventricular systolic
function. Left ventricular ejection fraction is 65% by Garcia's method. Mild
concentric left ventricular hypertrophy. Diastolic function indeterminate due
to atrial fibrillation.
Normal right ventricular size and function.
Moderate mitral regurgitation.
Mild tricuspid regurgitation. Estimated pulmonary artery pressure of 31 mmHg,
assuming a right atrial pressure of 8 mmHg.
Compared to prior study dated 06/09/2022, mitral regurgitation was previously
mild, otherwise no significant change
Subjective Data
-
Date of Service:
Date of Service: April 23, 2024
Chief Complaint: Pulmonary Follow Up
Subjective:
Events noted, still producing hemoptysis
Since today, he has produced about 5 mL or pinkish hemoptysis. Yesterday produced up to 10 mm of dark hemoptysis. Reportedly he has been producing up to 1 cup of hemoptysis earlier this admission
He continues on systemic corticosteroids
Unfortunately still smoking occasional cigar at home along with bourbon
Denies epistaxis
Denies hematuria
Denies hematemesis
Denies hematochezia or melena
Denies chest pain
at bedside
Follows with Dr. Ricardo Sterling at [facility]
Review of Systems
General: Fever (n), Sweats (n), Chills (n) and Satisfactory Appetite
HEENT: Epistaxis (n), Dysphagia (n), Choking (n) and Thrush (n)
Cardiopulmonary: Dyspnea (n at rest), Wheezing (n), Edema (n) and Hemoptysis (decreasing)
GI: Abdominal Pain (n), Nausea (n), Vomiting (n) and Diarrhea (n)
Neuro: Weakness
Genitourinary: Hematuria (n)
Objective Data
Data Reviewed
Vital Signs / I&O / Oxygen:
Vital Signs
Temp Pulse Resp BP Pulse Ox
98.1 F 82 12 151/97 92
04/23/24 07:26 04/23/24 10:00 04/23/24 10:00 04/23/24 10:00 04/23/24 10:00
Intake and Output
04/22/24 04/23/24 04/24/24
06:59 06:59 06:59
Intake Total 1320 / 1320 940 / 940
Output Total 600 / 600 2150 / 2150
Balance 720 / 720 -1210 / -1210
SaO2 92
Nasal Cannula flow liters per 10
minute
Physical Exam
General: Respiratory Distress (Negative), Comfortable, Chills (Negative) and Good Appetite
HEENT: Normocephalic, Anicteric, Moist Mucous Membranes and Thrush (n)
Cardiovascular: S1-S2, JVD (n), Peripheral Edema (Negative) and Calf Tenderness (n)
Respiratory: Wheeze (Negative), Crackles (Bilateral), Rhonchi (Negative), Non-Labored Respirations and Stridor (n)
GI: Soft, Non Distended, Non Tender and Normal Bowel Sounds
Neurology: Awake and AO x 3
Skin: Warm, Dry, Cyanosis (n) and Jaundice (Negative)
Labs/Micro/Reports
Lab Data
04/23/24 05:46
04/23/24 05:46
Microbiology
04/21/24 12:13 Sputum Respiratory Culture - Final
Usual Respiratory Agueda
04/21/24 12:13 Sputum Gram Stain - Final
04/19/24 08:10 Blood/Venous Blood Culture - Preliminary
No Growth in 4 days- Final report to follow
04/19/24 07:50 Blood/Venous Blood Culture - Preliminary
No Growth in 4 days- Final report to follow
--- NOTE | 2024-04-23 11:22 | CM ---
Addendum entered by Marilee Rawls RN 04/23/24 11:42:
Plan watch for home O2 needs.
Original Note:
Patient with Dx Concern for cryptogenic pneumonia, hemoptysis, HF vs pulm edema. O2 2L. Receiving Tikosyn, IV Lasix, IV Solumedrol. Per nurse assessment; ambulatory by self.
CM Consult: Siegel check Tikosyn 250mcg PO Q12H
Spoke with pharmacist, Glendy Schaefer; the generic version dofetilide is covered, and cost is $31.37/month.
Spoke with patient's ; cost of Tikosyn okay for now.
Offered VN; unsure and says patient/ will want to decide when closer to d/c.
Plan offer VN for SN when closer to d/c.
Plan home.
--- NOTE | 2024-04-23 14:00 | TRANSFER ---
Placed on RAIR when awake, maintaining 92-94%. SR on tele. IV Lasix given, 900ml urine output noted. Ambulates in room. Report called to [facility] IVU and transferred to [facility] via .
[2024-04-23] MEDS: TIKOSYN 250 MCG PO (14:20)
--- NOTE | 2024-04-23 14:33 | PTCARENOTE ---
Rec'd Pt 1350, transferred from IMU, A,A+Ox3, denies pain.
[2024-04-23] MEDS: LIPITOR 40 MG PO (18:52)
--- NOTE | 2024-04-23 20:30 | PTCARENOTE ---
pt pleasant and cooperative. denies pain or discomfort. o2 sat 97% on room air. pt states he is still occasionally coughing blood tinged sputum but is has improved alot as per pt. lungs with fine crackles in bases. tikosyn load started previous
shift. medication explained to pt alone with chf education. pt states understanding. pt sr on monitor. will observe.
[2024-04-24] MEDS: TIKOSYN 250 MCG PO ×3 (00:16→21:51)
[2024-04-24 02:57] VITALS: BP 123/85
[2024-04-24 03:50] LABS: Hematocrit 41.8 % (39.0-52.0); Hemoglobin 14.6 g/dL (13.0-18.0); Mean Corp Hgb Conc. 34.9 g/dL (33.0-37.0); Mean Corpuscular Hgb 32.4 pg (27.0-31.0); Mean Corpuscular Volume 92.9 fL (80.0-94.0); Platelet Count 165 10^3/uL (130-400); Red Cell Dist. Width 12.5 % (11.5-14.5); White Blood Cell Count 15.3 10^3/uL (4.8-10.8)
[2024-04-24 04:12] LABS: Blood Urea Nitrogen 46 mg/dl (9-20); Calcium 8.9 mg/dl (8.4-10.2); Carbon Dioxide 29 mmol/L (22-30); Chloride 102 mmol/L (98-107); Estimated Creatinine Clearance 119 ml/min; Glucose 135 mg/dl (70-99); Magnesium 2.9 mg/dl (1.6-2.3); Potassium 4.1 mmol/L (3.5-5.1); Sodium 135 mmol/L (135-145); eGFR > 60.00
[2024-04-24 05:01] VITALS: BP 123/85; BMI 29.9
--- NOTE | 2024-04-24 06:13 | PTCARENOTE ---
short burst svt noted. pt asymptomatic.
[2024-04-24 06:38] VITALS: BP 130/85
[2024-04-24 07:08] LABS: Glomerular Base Membrane Ab 0 AU/mL (0-19); Myeloperoxidase Antibody 0 AU/mL (0-19); Serine Protease-3, IgG 0 AU/mL (0-19)
--- NOTE | 2024-04-24 09:25 | W.PN.HOSP.TC ---
Today's Communication/Plan
-
Hold xarelto/plavix
For bronch tomorrow
Assessment / Plan
Assessment / Plan
HPI: 64-year-old male with a past medical history of cryptogenic pneumonia, paroxysmal atrial fibrillation on Xarelto, CAD, and hypertension presents with worsening shortness of breath. This is his third ER visit in 1 week. Patient was seen on
04/12, 04/17, and today for shortness of breath. He had a chest CT done on 04/12, which shows interstitial right-sided pneumonia. He was discharged on Levaquin and steroids, which he took without improvement. He also was back into rapid atrial
fibrillation, and resumed on Xarelto and metoprolol. He was seen again in the ED on 04/17 for chest pain, and was found to have a fast heart rate. His metoprolol succinate was increased, he was discharged again. Patient reports finishing his
steroids 2 days ago. He feels that his shortness of breath has been noticeably worse overnight, and came back to the ER this morning. Associated symptoms include hemoptysis. He denies fever. No nausea, no vomiting.
#Concern for cryptogenic pneumonia
#Hemoptysis
#Shortness of breath
#Acute decompensation overnight, Hypoxic Respiratory Failure requiring up to 10L, possibly due to heart failure vs flash pulm edema vs PNA, transferred to IMU 04/22
Hypoxia resolved, currently on room air
Urine Legionella antigen negative, follow-up sputum Gram stain and culture
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
Procalcitonin neg. COVID neg x2 04/19 04/22
Appreciate pulmonology input, continue IV steroids, bronchodilators. Bronchoscopy postponed tentatively Mon 04/25
Plavix placed on hold last dose 04/21 due to hemoptysis, Xarelto held 04/24 (recent cardioversion 04/21 - ideally would need to continue for 4 weeks, resume when ok w/ pulm)
Repeat CXR appreciated possible pulm edema (most likely) vs PNA (less likely)
Seen by ID, recommend monitoring off antibiotics
#Possible Acute HFpEF vs Flash Pulm Edema
#Acute Respiratory Failure requiring 10L as above
Recent BNP 1999
Received once doses IV Lasix by SUPER[employer]OR [employer] overnight and Pulm/Cardio during day
DOC 04/21 noted preserved EF 60-65% Mod MR
Continue IV Lasix as per cardio/pulm, trend creatinine, trend daily weights
#Leukocytosis
Likely from steroids, trend
#Rapid atrial fibrillation
S/p PVI 2011, 2012 and 2017
S/p post cardioversion 05/2018
Appreciate cardiology input, status post successful DOC guided cardioversion on 04/21
Continue metoprolol succinate 100 mg twice daily, hold Xarelto 04/24
04/23�started Tikosyn loading
#Coronary artery disease
Continue statin
Plavix held secondary to hemoptysis
#History of benign essential hypertension
Hold home candesartan/hydrochlorothiazide in case we need to go up on more rate controlling medications for his rapid atrial fibrillation
DVT prophylaxis�SCDs
Full code
Discussed with patient at bedside and [place] over phone 04/23
Total time spent to see the patient on the floor, examine the patient, review data and lab results, discuss treatment plan with patient, nursing staff around 51 minutes.
Physical Exam
General: No acute distress
HEENT: Normocephalic, Atraumatic, EOMI, MMM,
Respiratory:
Improving right-sided basilar crackles
Cardiac: Normal S1/S2, regular rate and rhythm
GI: Soft, Nontender, Nondistended, Normal Bowel Sounds
Extremities: No Clubbing, Cyanosis, or Edema
Neuro: AOx3
Psych: Calm, Cooperative
Derm: No Visible lesions
Anticipated Discharge: 24 - 48 hours
Subjective/Interval History
-
Date of Service: April 24, 2024
Patient having severe worsening hemoptysis. His breathing is improved. No fever, no vomiting.
Objective Data
-
Labs:
Laboratory Results
04/24/24
03:20
WBC 15.3 H
Hgb 14.6
Hct 41.8
Plt Count 165
Sodium 135
Potassium 4.1
Chloride 102
Carbon Dioxide 29
BUN 46 H
Creatinine 0.8
Glucose 135 H
Calcium 8.9
Vital Signs:
Vital Signs
Temp Pulse Resp BP Pulse Ox
98.1 F 65 20 130/85 94
04/24/24 06:38 04/24/24 06:38 04/24/24 06:38 04/24/24 06:38 04/24/24 06:38
I&O
04/23/24 04/24/24 04/25/24
06:59 06:59 06:59
Intake Total 940 / 940 560 / 560
Output Total 2150 / 2150 900 / 900
Balance -1210 / -1210 -340 / -340
--- NOTE | 2024-04-24 10:07 | W.PN.ID1 ---
Date of Service
Date of Service: April 24, 2024
Today's Communication
awaiting testing as below - could be followed up as outpatient
Assessment / Plan
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
Not known to be immunosuppressed, no known rheumatologic disease
- first diagnosed 2020, had bronchoscopy and pathology at that time - rheumatologic workup was negative at that time; responded to steroids at that time and with 3 subsequent episodes
- responding to steroids in my opinion
- await cryoglobulins, c3, c4, hep B/C serologies. Note neg hep C 2018.
- await immunoglobulins
- HIV 4th gen negative - notified patient
- steroid management per pulmonary, no objection from my perspective
- follow up with pulmonary service
Hemoptysis
- agree that could be due to antiplatelet therapy
- no recorded fevers, weight is stable compared to 2020, with streaky hemoptysis with progression on steroids
- already had trial of a quinolone without improvement
- noncovid viral infections are possible - management would be supportive
Chief Complaint
-: Leukocytosis and Other (cryptogenic organizing pneumonia )
Subjective / Review of Systems
afebrile
bp stable
remains on room air
stable leukocytosis in context of high dose steroids
still with small amount of hemoptysis
Vital Signs / Physical Exam
Vital Signs
Vital Signs
Temp Pulse Resp BP Pulse Ox
98.1 F 65 20 130/85 94
04/24/24 06:38 04/24/24 06:38 04/24/24 06:38 04/24/24 06:38 04/24/24 06:38
Physical Exam
Constitutional: No Acute Distress
Cardiovascular: Regular Rate and S1/S2; Negative Murmur or Rub
Pulmonary: Clear and Symmetric; Negative Wheezes or Rales
Gastrointestinal: Soft, Non Tender, Non Distended and Normal Bowel Sounds
Skin: Warm and Dry; Negative Rash or Jaundice
Objective Data
Lab Data
Lab Results
04/24/24 03:20
04/24/24 03:20
ESR 7 mm/hour (0-20) 04/22/24 05:15
PT 21.1 Sec (11.4-14.6) H 04/22/24 05:15
INR 1.81 04/22/24 05:15
APTT 35.6 Sec (23.4-35.0) H 04/22/24 05:15
Estimated Creat Clear 119 ml/min 04/24/24 03:20
Lactic Acid Cancelled 04/19/24 11:45
Total Bilirubin 1.2 mg/dl (0.2-1.3) 04/22/24 05:15
AST 33 U/L (17-59) 04/22/24 05:15
ALT 61 U/L (0-50) H 04/22/24 05:15
Alkaline Phosphatase 61 U/L (38-126) 04/22/24 05:15
C-Reactive Protein 10.00 mg/L (0.0-10.00) 04/22/24 05:15
Most recent labs reviewed.
Micro Results:
04/19/24 08:10 Blood Culture - Final
Blood/Venous No Growth - Final Report
04/19/24 07:50 Blood Culture - Final
Blood/Venous No Growth - Final Report
04/21/24 12:13 Respiratory Culture - Final
Sputum Usual Respiratory Agueda
Gram Stain - Final
04/19/24 08:10 Legionella Urinary Antigen - Final
Urine Negative for Legionella pneumophila Serogroup 1 antigen.
A negative result does not rule out the possiblity of
Legionella infection due to other serogroups or species of
Legionella. Clinical correlation is recommended.
[2024-04-24] MEDS: COSOPT EYE DROPS 1 DROP BOTH EYES ×2 (10:08→18:02)
[2024-04-24] MEDS: VISBIOME 1 CAP PO (10:09)
[2024-04-24] MEDS: THERAGRAN 0.5 TABLET PO ×2 (10:09→21:50)
[2024-04-24] MEDS: TOPROL XL 100 MG PO ×2 (10:09→21:51)
[2024-04-24] MEDS: SOLU-MEDROL PF 40 MG IV ×2 (10:10→21:50)
[2024-04-24] MEDS: LASIX 40 MG IV (10:11)
--- NOTE | 2024-04-24 11:53 | W.PN.PUL3 ---
Today's Communication / Plan
-
Monitor hemoptysis
Holding clopidogrel and rivaroxaban
Reevaluate for potential bronchoscopy on 04-26 or later
Assessment
-
Assessment:
64-year-old male with a past medical history of A-fib on Xarelto, hypertension, history of pericarditis and COVID-19 who presents with SOB and chest pain that started about 2 weeks ago. On 04/12/2024 patient came to the ER with cough and hemoptysis
for 1 day. Hb was 10.5 that day. Symptoms began that morning with wheezing, shortness of breath and moderate amount of sputum with blood seen. He also had chest pain with tightness. CTA chest showed mild patchy GGO in the bases with a RLL 4-5 mm
nodule. He was tachycardic into the 110s, and was offered admission but he refused as his cardiology care is at [facility]. He was discharged home with 7-day course of Levaquin, 5-day course of 40 mg prednisone daily. He came back again to the ER 5
days later with arm heaviness and chest pain, was found to be in A-fib with RVR. Heart rate improved with IV Lopressor and increasing his metoprolol dose. Again he was offered admission for management with DOC with cardioversion but patient
refused. Now that he is back he is endorsing similar symptoms with SOB + chest pain. He is afebrile in the ER to 97.7 �F, heart rate labile between 60�116, he is breathing at 15-22 breaths/min, he was saturating 96% on room air and BP 132/88.
Labs showed leukocytosis to 11.3, Hb 14.1, absolute eosinophils are WNL at 100, troponin WNL at 0.028, proBNP 2700 (was 1450 on 04/12/2024), COVID-19 action negative, blood cultures were collected, and CXR showed no acute cardiopulmonary process. He
was started on Cardizem drip due to rapid A-fib, and given Rocephin + doxycycline. Pulmonary service now consulted 04-19 for additional management/recommendations.
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
Hypertension, paroxysmal A-fib on Xarelto, history of pericarditis, history of COVID-19 (12/2022), single-vessel CAD with DECALER of mid RCA s/p PCI in 09/2023, alcohol use disorder
Impression:
#Acute respiratory distress - concern for acute pulmonary edema with hemoptysis in setting of plavix/xarelto use
#Dyspnea + chest pain - complex case given his history of COSMETIC DENTIST + paroxysmal A-fib with recently uncontrolled heart rates
-CTA chest from 04/12/2024: basilar predominant peribronchovascular GGOs. No compelling evidence of recurrence of COSMETIC DENTIST, but suspected acute decompensated heart failure given his uncontrolled A-fib/flutter especially with his elevated proBNP
Has no microscopic hematuria on UA, hence doubt vasculitis. The patient is very convinced that his A-fib has started after he developed his 'pneumonia' symptoms, which are very similar to his prior pneumonia symptoms when he had been diagnosed
with COSMETIC DENTIST in the past
- Repeat CT chest with contrast on 04/21 showed worsening bilateral patchy GGO, particularly in RLL
#Transaminitis with elevated ALT (73)
#CAMPOS (Cr baseline ~0.8-1)
#RLL pulmonary nodule (4-5 mm) - present since 01/2022
#Mild ARMEN
#History of cryptogenic organizing pneumonia requiring prednisone with negative rheumatological workup
#Personal history of COVID-19 (12/2022)
#Alcohol use disorder
#History of single-vessel CAD with DECALER of mid RCA s/p PCI in 09/2023
#Tobacco use disorder (occasional cigar use, otherwise he quit in 2006 with a [id number] history prior)
Plan:
#Hemoptysis:
Recurrent
H/o COSMETIC DENTIST (bronchoscopy 08-22-by Dr Kerr: BAL, 10 TBBxs from RUL posterior segment: organizing fibrosis)
Abnormal CT Chest with worsening perivascular, centrilobular ground glass opacities
Rheumatological/CTD workup checked on 04/20 � RF, CCP, PR3, MPO, Letty-1, SS-A/B, Scl-70, A-centromere Ab, a-GBM negative. C3/4, cryoglob, Igs pending
Originally planned for bronch with BAL 04-22 with possible biopsy, but given his worsening oxygen requirements with tenuous respiratory status, bronch cancelled.
- Plavix on hold since last dose 04-21 AM: pharmacy called 04-24 with [facility] (rivaroxaban last dose 04-22 AM)
- Given concern for acute pulmonary edema, lasix 40mg IVP x1
- Transferred to IMU for closer monitoring on 04-21
DDx includes heart failure in setting of antiplatelet therapy; less likely DDx also includes vasculitis vs infection (viral)
- Held off on BAL 04-22
As mentioned above, clopidogrel on hold since last dose 04-21 AM: pharmacy called 04-24 with Pharm[facility] (rivaroxaban last dose 04-22 AM)
Keep disposable cup at bedside to quantify his hemoptysis
Continue treating for presumed COSMETIC DENTIST with systemic steroids
Started on 04/19 with solumedrol 500mg IV daily. MP down to 40 mg IV qd since 04-20, continue at same dose
On 04-22 produced up to 10 mL of dark hemoptysis. Reportedly produced up to 1 collection cup of hemoptysis earlier this admission
Produced up to 5 mL or pinkish hemoptysis on 04-23 AM
Since transfer to IVU 04-23 new jar used for collection of sputum provided yesterday at 1 pm: since then has produce 20 mL of dark hemoptysis
Follow hemoptysis closely
Will plan for diagnostic bronchoscopy next week: BAL (plus TBBx if indicated by updated chest CT), depending on clinical course
Earliest possible bronchoscopy for potential TBBx, based on clopidogrel holding date: 04-26 or later
Will communicate with Pulmonology colleague covering service starting tomorrow to arrange logistics
Would consider TBBx with cryobiopsy probe or via VATS at some point depending on reevaluation of case: if qualifies, procedure will need to be done at facility properly equipped to do so, could consider transfer depending on pulm reevaluation
D/w Mr and Mrs Bernabe in detail on 04-23 and (also d/w with their two children on 04-23)
Unfortunately still smoking occasional cigar at home along with bourbon
Denies epistaxis
Denies hematuria
Denies hematemesis
Denies hematochezia or melena
Denies chest pain
CXR 04-23: portable film, reviewed, pending report. Improved pulm vasc congestion (considering difference in underpenetrated film 04-22)
TTE 06/2022 although not sure he has had more recent studies as his cardiac workup was done at [facility]
-TTE done on 04/20 showing normal RV size/function, moderate MR, mild TR, mild pulmonary hypertension, with preserved LVEF at 65% with mild concentric LVH.
-DOC done 04/21 during cardioversion - moderate MR, normal JUAN with no thrombus seen, no regional WMA, LVEF 60-65%, normal RV size/function and normal pulmonary veins
- Maintain SpO2 >90-94% with supplemental O2 --> currently on midflow NC at 11L/min --> place onto bipap if worsening SOB
- Incentive spirometer encouraged
- prn nebulized bronchodilators
- Procal is <0.05 --> doubt this is a bacterial infection. He remains non-toxic appearing and afebrile - hold off on Abx and re-assess daily
#Lung Nodule
- Regarding his RLL subpleural pulmonary nodule, this has been stable since at least January 2022, and does not need any further radiographic surveillance
ID following
HIV negative, pending Hep B/C serologies
Observing off atbs
Cardiology initially started cardizem gtt and he underwent DOC with cardioversion on AM of 04/21 successfully converting him into NSR.
In view of frequent ectopy and several brief runs of AFib, transferring to IVU 04-23 to start dofetilide (tikosyn)
#CAMPOS:
- trend sCr, UOP
- Replete electrolytes with K>4, Mg>2
#Other:
- Maintain euglycemia with goal BG >100 and <180
- DVT ppx
Strongly advised to quit smoking on a permanent fashion. very supportive, she plans to get rid of any tobacco and paraphernalia at home
D/w and Mrs Bernabe on a daily basis, all questions answered
D/w Dr De La Torre via TT
TT to IVU RN and Dr Munroe 04-24
Diagnostic tests:
CT Chest with IV Contrast 04-21-2024: Multifocal pneumonia with moderate patchy groundglass parenchymal airspace disease throughout both lungs, most prominent in the right lung base
CTA Chest 04-12-2024:
There is no pulmonary embolism
There is mild groundglass airspace disease in the basilar portion of the right lower lobe, new compared with the prior study suggesting interstitial pneumonia
TTE 04-20-2024:
Normal left ventricular chamber size. Normal left ventricular systolic function. Left ventricular ejection fraction is 65% by Garcia's method. Mild concentric left ventricular hypertrophy. Diastolic function indeterminate due
to atrial fibrillation.
Normal right ventricular size and function.
Moderate mitral regurgitation.
Mild tricuspid regurgitation. Estimated pulmonary artery pressure of 31 mmHg, assuming a right atrial pressure of 8 mmHg.
Compared to prior study dated 06/09/2022, mitral regurgitation was previously mild, otherwise no significant change
Subjective Data
-
Date of Service:
Date of Service: April 24, 2024
Chief Complaint: Pulmonary Follow Up
Subjective:
Transferred to IVU for decision on Tikosyn yesterday
Produced up to 5 mL or pinkish hemoptysis on 04-23 AM
Since transfer to IVU 04-23 new jar used for collection of sputum provided yesterday at 1 pm: since then has produce 20 mL of dark hemoptysis (on 04-22 produced up to 10 mL of dark hemoptysis). Reportedly produced pp to 1 collection cup of
hemoptysis earlier this admission
Clopidogrel last dose 04-21 AM, rivaroxaban last dose 06-21 AM: pharmacy called 04-24 with [facility]
Review of Systems
General: Fever (n), Sweats (n), Chills (n) and Satisfactory Appetite
HEENT: Epistaxis (n) and Dysphagia (n)
Cardiopulmonary: Dyspnea (n), Wheezing (n), Chest Pain (n), Edema (n) and Hemoptysis
GI: Abdominal Pain (n), Nausea (n), Vomiting and Melena (n)
Neuro: Weakness
Genitourinary: Hematuria (n)
Objective Data
Data Reviewed
Vital Signs / I&O / Oxygen:
Vital Signs
Temp Pulse Resp BP Pulse Ox
98.1 F 63 20 130/85 94
04/24/24 06:38 04/24/24 10:09 04/24/24 06:38 04/24/24 10:09 04/24/24 10:22
Intake and Output
04/23/24 04/24/24 04/25/24
06:59 06:59 06:59
Intake Total 940 / 940 560 / 560 240 / 240
Output Total 2150 / 2150 900 / 900 700 / 700
Balance -1210 / -1210 -340 / -340 -460 / -460
SaO2 94
Nasal Cannula flow liters per 2
minute
Physical Exam
General: Respiratory Distress (Negative), Comfortable, Chills (Negative) and Good Appetite
HEENT: Normocephalic, Anicteric, Moist Mucous Membranes, Thrush (n) and Other (no nasal, oral or pharyngeal signs of bleeding)
Cardiovascular: S1-S2, JVD (n), Peripheral Edema (Negative) and Calf Tenderness (n)
Respiratory: Wheeze (Negative), Crackles (Bilateral), Rhonchi (Negative), Non-Labored Respirations and Stridor (n)
GI: Soft, Non Distended, Non Tender and Normal Bowel Sounds
Neurology: Awake and AO x 3
Skin: Warm, Dry, Cyanosis (n) and Jaundice (Negative)
Labs/Micro/Reports
Lab Data
04/24/24 03:20
04/24/24 03:20
Microbiology
04/19/24 08:10 Blood/Venous Blood Culture - Final
No Growth - Final Report
04/19/24 07:50 Blood/Venous Blood Culture - Final
No Growth - Final Report
04/21/24 12:13 Sputum Respiratory Culture - Final
Usual Respiratory Agueda
04/21/24 12:13 Sputum Gram Stain - Final
--- NOTE | 2024-04-24 12:17 | W.PN.CARDCBS ---
Addendum entered and electronically signed by Tejal De La Torre DO 04/24/24 13:59:
Communicated with pulmonary and will continue to hold antiplatelet/anticoagulation for now
Plan for bronchoscopy tentatively 04/26/2024
Hopefully can resume anticoagulation this soon as possible with recent cardioversion
Patient made a comment about high cost of Xarelto and will explore difference in cost of Eliquis next week
We also reviewed possibility of future watchman evaluation as an outpatient given bleeding risk and hemoptysis.
Original Note:
Today's Communication / Plan
-
Tikosyn protocol with EKGs
Awaiting pulmonary plan regarding ongoing mild hemoptysis
Impression / Plan
-
Primary Traffic Signal Supervisor Maintenance: Dr. Edgar Starkey of [place]
Manager Renewable Energy: Dr. Lund of [place]
Assessment:
Acute on chronic respiratory distress with multiple ER visits with concern for acute heart failure preserved ejection fraction with hemoptysis in the setting of Plavix and Xarelto use
History of cryptogenic organizing pneumonia requiring prednisone with negative rheumatological workup
Mild ARMEN
RLL pulmonary nodule (4-5 mm) - present since 01/2022
Personal history of COVID-19 (12/2022)
Paroxysmal atrial fibrillation and atrial flutter, now with RVR
Status post flutter ablation in 2011
Status post PVI 2012
Status post repeat ablation 10/2018 with focal reconnection at CTI isthmus and LSPV
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
Former smoker, occasional cigars
ETOH use
Elevated CRP
-ECHO 06/2022: EF 65%, mild concentric LVH, mild MR, trace TR, PAP 35 to 40 mmHg
-Echo 04/20/2024: EF 65%, mild concentric LVH, moderate MR, mild TR, PAP 31 mmHg
-Transesophageal echocardiogram prior to cardioversion 04/21/2024: Normal biventricular size and systolic function. EF estimated 60 to 65%. Dilated atria. No left atrial appendage thrombus. Moderate MR. No mitral valve prolapse. No significant
aortic valve disease. Mild TR. Interatrial septum was reported normal
-DC cardioversion 04/21/2024 successful with 200 J x 1
Plan:
Acute on chronic respiratory distress 04/22 requiring high flow O2 which rapidly improved with IV Lasix and IV steroids
-Patient had had DOC/ cardioversion 04/21 which was successful in converting him to sinus rhythm
-Likely multifactorial with underlying lung disease process, possible aspiration and mild heart failure with preserved ejection fraction
-He improved with 2 doses of IV Lasix. Not on Lasix as an outpatient but had previously been on hydrochlorothiazide. Hydrochlorothiazide is is contraindicated with new Tikosyn.
-He has lost 8 pounds since admission and is now on room air
-Recent transthoracic and transesophageal echocardiogram with moderate MR without prolapse and preserved biventricular systolic function.
-Will repeat proBNP
-Will start Lasix 20 mg once daily
Ongoing shortness of breath and hemoptysis
-Pulmonary input appreciated: Had been scheduled for bronc with BAL which was canceled due to tenuous respiratory status. Per pulmonary, procedure will be rescheduled possibly next week versus an outpatient
-History of cryptogenic organizing pneumonia requiring prednisone with negative rheumatological workup
-Appreciate ID input: They do not suspect infectious process. No antibiotics.
-Plavix has been placed on hold but will resume once is safer given recent stent in September 2023
-Xarelto has been cautiously continued after discussion with pulmonary but will continue to monitor with ongoing hemoptysis
-Hb stable 14.6
Paroxysmal atrial fibrillation and flutter status post remote ablations and recent DOC cardioversion 04/21/2024
-Maintaining sinus rhythm but had brief runs of A-fib overnight on telemetry
-Cleared by pulmonary to continue Xarelto for now
-No left atrial appendage thrombus on DOC
-Discussed with Dr. Mason EP plan: Tikosyn 250 mg twice daily initiated 04/23/2024.
-He has had 3 out of 5 doses with slightly prolonged QTc. Will await EKG following third dose; if QTc continues to be around 500 ms we will reduce Tikosyn to 125 mg twice daily.
-Continue telemetry and EKG protocols
-Keep K greater than 4, mag greater than 2
-Patient follows with cardiology and EP at [facility] [address]. Will update his band head saw operator, Dr. Lund next week
Coronary artery disease status post RCA PCI PAD September 2023
-Fortunately no chest pain or pressure suggestive of angina
-Plan to resume Plavix when able
Will follow with you
Progress Note - Traffic Signal Supervisor Maintenance
Subjective
Date of Service: April 24, 2024
Patient seen and examined. No new complaints. Overall reports shortness of breath is improved and is on room air. Continues with cough and hemoptysis. No palpitations, no chest pain or pressure.
Objective
Labs:
04/24/24 03:20
04/24/24 03:20
Labs
Hgb 14.6 g/dL (13.0-18.0) 04/24/24 03:20
Hct 41.8 % (39.0-52.0) 04/24/24 03:20
Plt Count 165 10^3/uL (130-400) 04/24/24 03:20
PT 21.1 Sec (11.4-14.6) H 04/22/24 05:15
INR 1.81 04/22/24 05:15
APTT 35.6 Sec (23.4-35.0) H 04/22/24 05:15
Sodium 135 mmol/L (135-145) 04/24/24 03:20
Potassium 4.1 mmol/L (3.5-5.1) 04/24/24 03:20
BUN 46 mg/dl (9-20) H 04/24/24 03:20
Creatinine 0.8 mg/dL (0.7-1.3) 04/24/24 03:20
Glucose 135 mg/dl (70-99) H 04/24/24 03:20
Vital Signs and I&O:
Vital Signs
Temp Pulse Resp BP Pulse Ox
98.1 F 63 20 130/85 94
04/24/24 06:38 04/24/24 10:09 04/24/24 06:38 04/24/24 10:09 04/24/24 10:22
Vital Signs
Temp Pulse Resp BP Pulse Ox
98.1 F 63 20 130/85 94
04/24/24 06:38 04/24/24 10:09 04/24/24 06:38 04/24/24 10:09 04/24/24 10:22
Intake & Output
04/22/24 04/23/24 04/24/24 04/25/24
06:59 06:59 06:59 06:59
Intake Total 1320 / 1320 940 / 940 560 / 560 240 / 240
Output Total 600 / 600 2150 / 2150 900 / 900 1400 / 1400
Balance 720 / 720 -1210 / -1210 -340 / -340 -1160 / -1160
Physical Exam
Physical Exam
GEN: awake, alert, oriented x3. RA
HEENT: mmm
LUNGS: Bronchovesicular BS no wheeze
CV: Reg, S1/S2, 1/6 SM
EXT: No edema
NEURO: Gross non-focal
[2024-04-24 12:25] VITALS: BP 125/80
[2024-04-24] MEDS: XARELTO PO (12:57)
[2024-04-24 15:16] VITALS: BP 132/72
[2024-04-24 15:49] LABS: NT-proBNP 985 pg/ml
[2024-04-24] MEDS: LIPITOR 40 MG PO (18:01)
[2024-04-24 19:13] VITALS: BP 138/69
--- NOTE | 2024-04-24 19:31 | PTCARENOTE ---
Pt up walking in halls, he denies any discomfort. Telemetry shows sinus rhythm with rare bursts of atrial tach, continuing tikosyn at current dose per . Xarelto on hold due to hemoptysis which he stated had not happened during the
afternoon at all today. Possible bronchoscopy planned for 04/26.
[2024-04-24] MEDS: FLUSH (NSS) 2 FLUSH IV (21:53)
[2024-04-24 23:18] LABS: Complement C3 120 mg/dl (88-165); IgA 180 mg/dl (70-400); IgG 693 mg/dl (700-1600); IgM 70 mg/dl (40-230)
[2024-04-25] VITALS (7 sets, daily range): BP systolic 123–158; BP diastolic 70–98; BMI 29.9; BMI 29.6
[2024-04-25 04:04] LABS: Hematocrit 41.9 % (39.0-52.0); Hemoglobin 14.4 g/dL (13.0-18.0); Mean Corp Hgb Conc. 34.4 g/dL (33.0-37.0); Mean Corpuscular Volume 93.1 fL (80.0-94.0); Mean Platelet Volume 10.9 fL (7.4-10.4); Platelet Count 174 10^3/uL (130-400); Red Cell Dist. Width 12.4 % (11.5-14.5); White Blood Cell Count 16.5 10^3/uL (4.8-10.8)
[2024-04-25 04:17] LABS: Blood Urea Nitrogen 47 mg/dl (9-20); Calcium 8.8 mg/dl (8.4-10.2); Carbon Dioxide 30 mmol/L (22-30); Chloride 101 mmol/L (98-107); Estimated Creatinine Clearance 119 ml/min; Glucose 136 mg/dl (70-99); Magnesium 2.7 mg/dl (1.6-2.3); Potassium 4.3 mmol/L (3.5-5.1); Sodium 136 mmol/L (135-145); eGFR > 60.00
--- NOTE | 2024-04-25 07:38 | RESPNOTE ---
Was contacted by cable worker helper RN that ' pt was feeling SOB and needed a tx. Pt was placed on 2L NC'. When arrived pt was on RA sat 96%. Pt stated ' I do not need that, they do not work. Im fine'. No respiratory distress noted. RN notified.
[2024-04-25] MEDS: THERAGRAN 0.5 TABLET PO ×2 (07:40→19:46)
[2024-04-25] MEDS: SOLU-MEDROL PF 40 MG IV ×2 (07:40→19:47)
[2024-04-25] MEDS: TOPROL XL 100 MG PO ×2 (07:42→19:46)
[2024-04-25] MEDS: LASIX 20 MG PO (07:42)
[2024-04-25] MEDS: VISBIOME 1 CAP PO (07:42)
[2024-04-25] MEDS: COSOPT EYE DROPS 1 DROP BOTH EYES ×2 (07:43→19:47)
--- NOTE | 2024-04-25 07:46 | W.PN.HOSP.TC ---
Today's Communication/Plan
-
For repeat chest CT today
Assessment / Plan
Assessment / Plan
HPI: 64-year-old male with a past medical history of cryptogenic pneumonia, paroxysmal atrial fibrillation on Xarelto, CAD, and hypertension presents with worsening shortness of breath. This is his third ER visit in 1 week. Patient was seen on
04/12, 04/17, and today for shortness of breath. He had a chest CT done on 04/12, which shows interstitial right-sided pneumonia. He was discharged on Levaquin and steroids, which he took without improvement. He also was back into rapid atrial
fibrillation, and resumed on Xarelto and metoprolol. He was seen again in the ED on 04/17 for chest pain, and was found to have a fast heart rate. His metoprolol succinate was increased, he was discharged again. Patient reports finishing his
steroids 2 days ago. He feels that his shortness of breath has been noticeably worse overnight, and came back to the ER this morning. Associated symptoms include hemoptysis. He denies fever. No nausea, no vomiting.
# Cryptogenic organizing pneumonia
#Hemoptysis
#Shortness of breath
#Acute decompensation overnight, Hypoxic Respiratory Failure requiring up to 10L, possibly due to heart failure vs flash pulm edema vs PNA, transferred to IMU 04/22
Hypoxia resolved, currently on room air
Urine Legionella antigen negative, follow-up sputum Gram stain and culture
Patient has completed a course of levofloxacin AIRFIELD SERVICES OFFICER, and also received Rocephin/azithromycin in the ED
Procalcitonin neg. COVID neg x2 04/19 04/22
Appreciate pulmonology input, continue IV steroids, bronchodilators. Bronchoscopy 04/25 canceled, pulmonology recommends repeat chest CT instead
Plavix placed on hold last dose 04/21 due to hemoptysis, Xarelto held 04/24 (recent cardioversion 04/21 - ideally would need to continue for 4 weeks, resume when ok w/ pulm)
Repeat CXR appreciated possible pulm edema (most likely) vs PNA (less likely)
Seen by ID, recommend monitoring off antibiotics
#Possible Acute HFpEF vs Flash Pulm Edema
#Acute Respiratory Failure requiring 10L as above
Recent BNP 1999
DOC 04/21 noted preserved EF 60-65% Mod MR
Status post IV Lasix, currently on oral Lasix as per cardio, trend creatinine, trend daily weights
#Leukocytosis
Likely from steroids, trend
#Rapid atrial fibrillation
S/p PVI 2011, 2012 and 2017
S/p post cardioversion 05/2018
Appreciate cardiology input, status post successful DOC guided cardioversion on 04/21
Continue metoprolol succinate 100 mg twice daily, held Xarelto 04/24 -resume when okay with pulmonology
04/23�started Tikosyn loading
#Coronary artery disease
Continue statin
Plavix held secondary to hemoptysis
#History of benign essential hypertension
Hold home candesartan/hydrochlorothiazide in case we need to go up on more rate controlling medications for his rapid atrial fibrillation
DVT prophylaxis�SCDs
Full code
Discussed with patient at bedside and [place] over phone 04/23
Total time spent to see the patient on the floor, examine the patient, review data and lab results, discuss treatment plan with patient, nursing staff around 50 minutes.
Physical Exam
General: No acute distress
HEENT: Normocephalic, Atraumatic, EOMI, MMM,
Respiratory:
Improving right-sided basilar crackles
Cardiac: Normal S1/S2, regular rate and rhythm
GI: Soft, Nontender, Nondistended, Normal Bowel Sounds
Extremities: No Clubbing, Cyanosis
Bilateral lower extremity edema noted
Neuro: AOx3
Psych: Calm, Cooperative
Derm: No Visible lesions
Anticipated Discharge: 24 - 48 hours
Subjective/Interval History
-
Date of Service: April 25, 2024
Continues to have hemoptysis. Breathing overall improved. No fever, no vomiting.
Objective Data
-
Labs:
Laboratory Results
04/25/24
03:49
WBC 16.5 H
Hgb 14.4
Hct 41.9
Plt Count 174
Sodium 136
Potassium 4.3
Chloride 101
Carbon Dioxide 30
BUN 47 H
Creatinine 0.8
Glucose 136 H
Calcium 8.8
Vital Signs:
Vital Signs
Temp Pulse Resp BP Pulse Ox
97.9 F 57 20 158/97 98
04/25/24 04:16 04/25/24 04:00 04/25/24 04:16 04/25/24 03:43 04/25/24 04:16
I&O
04/24/24 04/25/24 04/26/24
06:59 06:59 06:59
Intake Total 560 / 560 840 / 840
Output Total 900 / 900 1900 / 1900
Balance -340 / -340 -1060 / -1060
[2024-04-25] MEDS: TIKOSYN 250 MCG PO ×2 (08:58→20:29)
--- NOTE | 2024-04-25 09:07 | W.PN.PUL3 ---
Today's Communication / Plan
-
Continue IV corticosteroids-will consider transition to oral prednisone depending on CAT scan results
Continue to quantify hemoptysis-improving
Continue to hold antiplatelets and anticoagulation for today. Will decide restarting depending on CT chest results
Will decide on possible bronchoscopy depending on results of imaging. If infiltrates significantly improved then no need for airway inspection.
Assessment
-
Assessment:
64-year-old male with a past medical history of A-fib on Xarelto, hypertension, history of pericarditis and COVID-19 who presents with SOB and chest pain that started about 2 weeks ago. On 04/12/2024 patient came to the ER with cough and hemoptysis
for 1 day. Hb was 10.5 that day. Symptoms began that morning with wheezing, shortness of breath and moderate amount of sputum with blood seen. He also had chest pain with tightness. CTA chest showed mild patchy GGO in the bases with a RLL 4-5 mm
nodule. He was tachycardic into the 110s, and was offered admission but he refused as his cardiology care is at [facility]. He was discharged home with 7-day course of Levaquin, 5-day course of 40 mg prednisone daily. He came back again to the ER 5
days later with arm heaviness and chest pain, was found to be in A-fib with RVR. Heart rate improved with IV Lopressor and increasing his metoprolol dose. Again he was offered admission for management with DOC with cardioversion but patient
refused. Now that he is back he is endorsing similar symptoms with SOB + chest pain. He is afebrile in the ER to 97.7 �F, heart rate labile between 60�116, he is breathing at 15-22 breaths/min, he was saturating 96% on room air and BP 132/88.
Labs showed leukocytosis to 11.3, Hb 14.1, absolute eosinophils are WNL at 100, troponin WNL at 0.028, proBNP 2700 (was 1450 on 04/12/2024), COVID-19 action negative, blood cultures were collected, and CXR showed no acute cardiopulmonary process. He
was started on Cardizem drip due to rapid A-fib, and given Rocephin + doxycycline. Pulmonary service now consulted 04-19 for additional management/recommendations.
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
Impression:
#Acute respiratory distress - concern for acute pulmonary edema with hemoptysis in setting of plavix/xarelto use
#Dyspnea + chest pain - complex case given his history of CHECKER IN + paroxysmal A-fib with recently uncontrolled heart rates
-CTA chest from 04/12/2024: basilar predominant peribronchovascular GGOs. No compelling evidence of recurrence of CHECKER IN, but suspected acute decompensated heart failure given his uncontrolled A-fib/flutter especially with his elevated proBNP
Has no microscopic hematuria on UA, hence doubt vasculitis. The patient is very convinced that his A-fib has started after he developed his 'pneumonia' symptoms, which are very similar to his prior pneumonia symptoms when he had been diagnosed
with CHECKER IN in the past
- Repeat CT chest with contrast on 04/21 showed worsening bilateral patchy GGO, particularly in RLL
#Transaminitis with elevated ALT (73)
#CAMPOS (Cr baseline ~0.8-1)
#RLL pulmonary nodule (4-5 mm) - present since 01/2022
#Mild ARMEN
#History of cryptogenic organizing pneumonia requiring prednisone with negative rheumatological workup
#Personal history of COVID-19 (12/2022)
#Alcohol use disorder
#History of single-vessel CAD with CODING COMPLIANCE SPECIALIST of mid RCA s/p PCI in 09/2023
#Tobacco use disorder (occasional cigar use, otherwise he quit in 2006 with a 15-mfqa-tfna history prior)
Plan:
#Hemoptysis:
Recurrent
H/o CHECKER IN (bronchoscopy 08-22-by Dr Kerr: BAL, 10 TBBxs from RUL posterior segment: organizing fibrosis)
Abnormal CT Chest with worsening perivascular, centrilobular ground glass opacities
Rheumatological/CTD workup checked on 04/20 � RF, CCP, PR3, MPO, Letty-1, SS-A/B, Scl-70, A-centromere Ab, a-GBM negative. C3/4, cryoglob, Igs pending
Originally planned for bronch with BAL 04-22 with possible biopsy, but given his worsening oxygen requirements with tenuous respiratory status, bronch cancelled.
- Plavix on hold since last dose 04-21 AM: pharmacy called 04-24 with [facility] (rivaroxaban last dose 04-22 AM)
- Given concern for acute pulmonary edema, lasix 40mg IVP x1
- Transferred to IMU for closer monitoring on 04-21
DDx includes heart failure in setting of antiplatelet therapy; less likely DDx also includes vasculitis vs infection (viral)
- Held off on BAL 04-22
Clopidogrel on hold since last dose 04-21 AM: pharmacy called 04-24 with [facility] (rivaroxaban last dose 04-22)
Keep disposable cup at bedside to quantify his hemoptysis-overall volume improving 04/25/2024.
Continue treating for presumed CHECKER IN with systemic steroids
Started on 04/19 with solumedrol 500mg IV daily. MP down to 40 mg IV qd since 04-20, continue at same dose-will consider transition to prednisone depending on CAT scan of the chest in 04/25/2024.
-
On 04-22 produced up to 10 mL of dark hemoptysis. Reportedly produced up to 1 collection cup of hemoptysis earlier this admission
Produced up to 5 mL or pinkish hemoptysis on 04-23 AM
Since transfer to IVU 04-23 new jar used for collection of sputum provided yesterday at 1 pm: since then has produce 20 mL of dark hemoptysis
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
-
Will plan for diagnostic bronchoscopy next week: BAL (plus TBBx if indicated by updated chest CT), depending on clinical course
Earliest possible bronchoscopy for potential TBBx, based on clopidogrel holding date: 04-26 or later
Pulmonary process has been steroid responsive in the past. Completely clear with prolonged prednisone course. Recurrent upon withdrawal of the steroids since 2020.
Dr. Sterling have discussed the need for ongoing immunosuppression-likely will require prolonged low-dose prednisone and consider CellCept. This has been discussed multiple times in the outpatient setting but usually he completely recovers.
In my opinion, open lung biopsy will not provide additional information. In his case, given underlying cardiac issues will be a very high risk procedure.
With negative rheumatologic serologies twice in the last 3 years unlikely that this represents vasculitis or connective tissue disease.
Depending on CAT scan of the chest 04/25/2024 we will can consider airway inspection. Unlikely transbronchial biopsies will add additional information.
-
Unfortunately still smoking occasional cigar at home along with bourbon.
Denies epistaxis
Denies hematuria
Denies hematemesis
Denies hematochezia or melena
Denies chest pain
CXR 04-23: portable film, reviewed, pending report. Improved pulm vasc congestion (considering difference in underpenetrated film 04-22)
Repeat CT chest 04/25/2024. Order has been placed.
-
TTE 06/2022 although not sure he has had more recent studies as his cardiac workup was done at [facility]
-TTE done on 04/20 showing normal RV size/function, moderate MR, mild TR, mild pulmonary hypertension, with preserved LVEF at 65% with mild concentric LVH.
-DOC done 04/21 during cardioversion - moderate MR, normal JUAN with no thrombus seen, no regional WMA, LVEF 60-65%, normal RV size/function and normal pulmonary veins
- Maintain SpO2 >90-94% with supplemental O2 --> currently on midflow NC at 11L/min --> place onto bipap-now resolved.
Hypoxemia suspect related to recurrent cryptogenic pneumonia and aspiration pneumonitis post DOC. Heart failure component also possibility.
- Incentive spirometer encouraged
- prn nebulized bronchodilators
- Procal is <0.05 --> doubt this is a bacterial infection. He remains non-toxic appearing and afebrile - continue to hold off on antibiotics.
Currently nontoxic, afebrile and not hypoxemic.
-
#Lung Nodule
- Regarding his RLL subpleural pulmonary nodule, this has been stable since at least January 2022, and does not need any further radiographic surveillance
ID following
HIV negative, pending Hep B/C serologies
Cardiology initially started cardizem gtt and he underwent DOC with cardioversion on AM of 04/21 successfully converting him into NSR.
In view of frequent ectopy and several brief runs of AFib, transferring to IVU 04-23 to start dofetilide (tikosyn)
Remains in sinus rhythm
Continue to hold antiplatelets and heparin for now. CT chest pending. Hopefully can restart in the next 24 hours.
#CAMPOS:
- trend sCr, UOP
- Replete electrolytes with K>4, Mg>2
#Other:
- Maintain euglycemia with goal BG >100 and <180
- DVT ppx
Strongly advised to quit smoking on a permanent fashion. very supportive, she plans to get rid of any tobacco and paraphernalia at home
Discussed with cardiology by Dr. Sterling 04/25/2024.

Diagnostic tests:
CT Chest with IV Contrast 04-21-2024: Multifocal pneumonia with moderate patchy groundglass parenchymal airspace disease throughout both lungs, most prominent in the right lung base
CTA Chest 04-12-2024:
There is no pulmonary embolism
There is mild groundglass airspace disease in the basilar portion of the right lower lobe, new compared with the prior study suggesting interstitial pneumonia
TTE 04-20-2024:
Normal left ventricular chamber size. Normal left ventricular systolic function. Left ventricular ejection fraction is 65% by Garcia's method. Mild concentric left ventricular hypertrophy. Diastolic function indeterminate due
to atrial fibrillation.
Normal right ventricular size and function.
Moderate mitral regurgitation.
Mild tricuspid regurgitation. Estimated pulmonary artery pressure of 31 mmHg, assuming a right atrial pressure of 8 mmHg.
Compared to prior study dated 06/09/2022, mitral regurgitation was previously mild, otherwise no significant change
Subjective Data
-
Date of Service:
Date of Service: April 25, 2024
Chief Complaint: Pulmonary Follow Up
Subjective:
Hemoptysis improving.
Mostly old blood.
Denies shortness of breath
Denies any fevers.
Ambulating to the restroom without shortness of breath.
Objective Data
Data Reviewed
Vital Signs / I&O / Oxygen:
Vital Signs
Temp Pulse Resp BP Pulse Ox
97.3 F 76 20 134/96 96
04/25/24 08:02 04/25/24 08:00 04/25/24 04:16 04/25/24 07:41 04/25/24 08:32
Intake and Output
04/24/24 04/25/24 04/26/24
06:59 06:59 06:59
Intake Total 560 / 560 840 / 840
Output Total 900 / 900 1900 / 1900
Balance -340 / -340 -1060 / -1060
SaO2 96
Nasal Cannula flow liters per 2
minute
Physical Exam
General: Respiratory Distress (Negative), Comfortable, Chills (Negative) and Good Appetite
HEENT: Normocephalic, Anicteric, Moist Mucous Membranes, Thrush (n) and Other (no nasal, oral or pharyngeal signs of bleeding)
Cardiovascular: S1-S2, JVD (n), Peripheral Edema (Negative) and Calf Tenderness (n)
Respiratory: Clear, Rhonchi (Negative), Non-Labored Respirations and Stridor (n)
GI: Soft, Non Distended, Non Tender and Normal Bowel Sounds
Neurology: Awake and AO x 3
Skin: Warm, Dry, Cyanosis (n) and Jaundice (Negative)
Labs/Micro/Reports
Lab Data
04/25/24 03:49
04/25/24 03:49
Microbiology
04/19/24 08:10 Blood/Venous Blood Culture - Final
No Growth - Final Report
04/19/24 07:50 Blood/Venous Blood Culture - Final
No Growth - Final Report
04/21/24 12:13 Sputum Respiratory Culture - Final
Usual Respiratory Agueda
04/21/24 12:13 Sputum Gram Stain - Final
--- NOTE | 2024-04-25 10:37 | PTCARENOTE ---
Pt received this am on room air. Sat 96%. Pt denies any sob and states he hasn't had any hemoptysis since 1800 last evening. No c/o of any pain or discomfort.
--- NOTE | 2024-04-25 10:44 | CM ---
Addendum entered by Sherice Morocho 04/25/24 13:11:
Telephone call to pharmacy benefit, ([phone]) to check on co-pay for Eliquis. He has a $4000.00 out of pocket cost for medical and prescriptions.So his scripts for Eliquis will be $300.00 a month until the deductible has been met. Once this is
met his co-pay would $30.00 a month for retail Pharmacy and for mail order 90 day will be $60.00. He has commercial insurance so he can use the $10.00 a month co-pay card. Placed the Eliquis co-pay card in his red discharge folder.
Addendum entered by Sherice Morocho 04/25/24 10:56:
Telephone call to [facility] to check if they have Dofetilide 250 mcg in stock. [facility] states they have it in stock,.
Original Note:
Reviewed chart. Mr. Bernabe was transferred to IVU. Met with Mr. Bernabe to review discharge plans. He states prior to admission he resides with his spouse in a three story home with fifteen steps to enter. He states once he is in the house he has a
first floor set-up. He states prior to admission he was independent with ambulation and adls. He states he does not have any DME in the home. His co-pay for Dofetilide 250 is $31.37 a month. Will need to have a three day script of Dofetilide
sent to . Pharmacy for him to take home. Will check with [facility] to see if they have Dofetilide 250 in stock. He states he has a prescription plan and uses [facility]. Medical work-up in progress. The discharge plan is to
return home with his spouse when medically stable.
--- NOTE | 2024-04-25 11:13 | W.PN.CARDCBS ---
Addendum entered and electronically signed by Tejal De La Torre DO 04/25/24 12:14:
I saw and examined the patient.
The Clinical Reimbursement Specialist's note was reviewed and I agree with the note.
Comment: Patient seen and examined and discussed care plan together with pulmonary. Still with hemoptysis but less than prior. No chest pain or pressure. No palpitations or dizziness.
GEN: awake, alert, oriented x3. RA
HEENT: mmm
LUNGS: Bronchovesicular BS no wheeze
CV: Reg, S1/S2, 1/6 SM
EXT: No edema
NEURO: Gross non-focal
Plan:
Ongoing shortness of breath and hemoptysis
-Improving hemoptysis off OAC and Plavix
-Pulmonary input appreciated: Plan for CT of the chest today and continue IV steroids. Depending on findings may need bronchoscopy this admission
-History of cryptogenic organizing pneumonia requiring prednisone with negative rheumatological workup. CT chest pending
-Appreciate ID input: They do not suspect infectious process. No antibiotics.
-Plavix has been placed on hold but will resume once is safer given recent stent in September 2023.
-Xarelto on hold, last dose 04/22/24. Patient reports Xarelto is very expensive. Will have case management do cost analysis for Eliquis with consideration of switching to this once safe from pulmonary standpoint to resume. -Continue to monitor with
ongoing hemoptysis
-Hb stable 14.4
-Per pulmonary, Continue IV corticosteroids-will consider transition to oral prednisone depending on CT scan results
Paroxysmal atrial fibrillation and flutter status post remote ablations and recent DOC cardioversion 04/21/2024
-Maintaining sinus rhythm
-Xarelto on hold since 04/22. Will need OAC resumed prior to d/c. Cost analysis requested for Eliquis
-No left atrial appendage thrombus on DOC
-Discussed with Dr. Marlon NEFF plan: Tikosyn 250 mg twice daily initiated 04/23/2024.
-He has had 5 doses as of 04/25/24 in am with stable QTc 473 ms
-DC'd outpatient hydrochlorothiazide given interaction with Tikosyn. Started low-dose Lasix 20 mg daily
-Keep K greater than 4, mag greater than 2
-Patient follows with cardiology and EP at [facility], Dr. Lund
Coronary artery disease status post RCA PCI PAD September 2023
-Fortunately no chest pain or pressure suggestive of angina
-ECG stable without ischemic changes
-Plan to resume Plavix when able
Per patient request I have left a message for his outpatient arabic teacher Dr. Lund at [facility] to update. He has an upcoming appointment with Dr. Ludn later this week; awaiting callback.
Original Note:
Today's Communication / Plan
-
CT chest today
Continue IV Steroids
QTc stable after 5th dose of Tikosyn
OAC and Plavix remain on hold
Transition to oral Lasix 20 mg
Impression / Plan
-
Primary Exchange Trouble Shooter: Dr. Edgar Starkey of [place]
Photographic Double: Dr. Lund of [place]
Assessment:
Acute on chronic respiratory distress with multiple ER visits with concern for acute heart failure preserved ejection fraction with hemoptysis in the setting of Plavix and Xarelto use
History of cryptogenic organizing pneumonia requiring prednisone with negative rheumatological workup
Mild ARMEN
RLL pulmonary nodule (4-5 mm) - present since 01/2022
Personal history of COVID-19 (12/2022)
Paroxysmal atrial fibrillation and atrial flutter, now with RVR
Status post flutter ablation in 2011
Status post PVI 2012
Status post repeat ablation 10/2018 with focal reconnection at CTI isthmus and LSPV
cardioversion 04/21/2024 successful with 200 J x 1
CAD with SCALE TESTER of RCA status post unsuccessful PTCA 01/2022, status post RCA PCI at [place] 09/2023
Former smoker, occasional cigars
ETOH use
Elevated CRP
ECHO 06/2022: EF 65%, mild concentric LVH, mild MR, trace TR, PAP 35 to 40 mmHg
Echo 04/20/2024: EF 65%, mild concentric LVH, moderate MR, mild TR, PAP 31 mmHg
Transesophageal echocardiogram prior to cardioversion 04/21/2024: Normal biventricular size and systolic function. EF estimated 60 to 65%. Dilated atria. No left atrial appendage thrombus. Moderate MR. No mitral valve prolapse. No significant
aortic valve disease. Mild TR. Interatrial septum was reported normal
-DC cardioversion 04/21/2024 successful with 200 J x 1
Plan:
Acute on chronic respiratory distress 04/22 requiring high flow O2 which rapidly improved with IV Lasix and IV steroids
-Patient had had DOC/ cardioversion 04/21 which was successful in converting him to sinus rhythm
-Likely multifactorial with underlying lung disease process, possible aspiration and mild heart failure with preserved ejection fraction
-He improved with 2 doses of IV Lasix. Not on Lasix as an outpatient but had previously been on hydrochlorothiazide. Hydrochlorothiazide is is contraindicated with new Tikosyn.
-He has lost 8 pounds since admission and is now on room air
-Recent transthoracic and transesophageal echocardiogram with moderate MR without prolapse and preserved biventricular systolic function.
-Weight down at least 10 lbs since admission. Improved proBNP now 985, was 2700 (04/19) & 2000 (04/21)
-Transitioned to oral Lasix 20 mg once daily 04/25/24
Ongoing shortness of breath and hemoptysis
-Improving hemoptysis off OAC and Plavix
-Pulmonary input appreciated: Had been scheduled for bronc with BAL which was canceled due to tenuous respiratory status.
-Per pulmonary, ordered CT Chest 04/25/24 w/ results pending. Depending on finding may need Bronch.
-History of cryptogenic organizing pneumonia requiring prednisone with negative rheumatological workup. CT chest pending
-Appreciate ID input: They do not suspect infectious process. No antibiotics.
-Plavix has been placed on hold but will resume once is safer given recent stent in September 2023.
-Xarelto on hold, last dose 04/22/24. Patient reports Xarelto is very expensive. Will have case management do cost analysis for Alec with consideration of switching to this once safe from pulmonary standpoint to resume. Continue to monitor with
ongoing hemoptysis
-Hb stable 14.4
-Per pulmonary, Continue IV corticosteroids-will consider transition to oral prednisone depending on CT scan results
Paroxysmal atrial fibrillation and flutter status post remote ablations and recent DOC cardioversion 04/21/2024
-Maintaining sinus rhythm but had brief runs of A-fib overnight on telemetry
-Xarelto on hold since 04/22. Will need OAC resumed prior to d/c. Cost analysis requested for Alec
-No left atrial appendage thrombus on DOC
-Discussed with Dr. Mason EP plan: Tikosyn 250 mg twice daily initiated 04/23/2024.
-He has had 5 doses as of 04/25/24 in am with stable QTc 473 ms
-Continue telemetry and EKG protocols
-Keep K greater than 4, mag greater than 2
-Patient follows with cardiology and EP at [facility], Dr. Lund
Coronary artery disease status post RCA PCI PAD September 2023
-Fortunately no chest pain or pressure suggestive of angina
-ECG stable without ischemic changes
-Plan to resume Plavix when able
Progress Note - Exchange Trouble Shooter
Subjective
Date of Service: April 25, 2024
Patient and examined. Sitting in chair. Still mild hemoptysis this am but overall feeling better
Objective
Labs:
04/25/24 03:49
04/25/24 03:49
Labs
Hgb 14.4 g/dL (13.0-18.0) 04/25/24 03:49
Hct 41.9 % (39.0-52.0) 04/25/24 03:49
Plt Count 174 10^3/uL (130-400) 04/25/24 03:49
PT 21.1 Sec (11.4-14.6) H 04/22/24 05:15
INR 1.81 04/22/24 05:15
APTT 35.6 Sec (23.4-35.0) H 04/22/24 05:15
Sodium 136 mmol/L (135-145) 04/25/24 03:49
Potassium 4.3 mmol/L (3.5-5.1) 04/25/24 03:49
BUN 47 mg/dl (9-20) H 04/25/24 03:49
Creatinine 0.8 mg/dL (0.7-1.3) 04/25/24 03:49
Glucose 136 mg/dl (70-99) H 04/25/24 03:49
Vital Signs and I&O:
Vital Signs
Temp Pulse Resp BP Pulse Ox
97.3 F 76 20 134/96 96
04/25/24 08:02 04/25/24 08:00 04/25/24 04:16 04/25/24 07:41 04/25/24 08:32
Vital Signs
Temp Pulse Resp BP Pulse Ox
97.3 F 76 20 134/96 96
04/25/24 08:02 04/25/24 08:00 04/25/24 04:16 04/25/24 07:41 04/25/24 08:32
Intake & Output
04/23/24 04/24/24 04/25/24 04/26/24
06:59 06:59 06:59 06:59
Intake Total 940 / 940 560 / 560 840 / 840
Output Total 2150 / 2150 900 / 900 1900 / 1900
Balance -1210 / -1210 -340 / -340 -1060 / -1060
Physical Exam
Physical Exam
GEN: No distress, awake, Ox3
HEENT: supple, anicteric, mmm
LUNGS: faint bilateral expiratory wheezes
CV: Reg, S1/S2, 1/6 syst LSB, no murmur
ABD: soft, BS+, NT/ND
EXT: Trace LE edema
NEURO: Gross non-focal
SKIN: No rash, warm, dry, pink
--- NOTE | 2024-04-25 12:10 | W.PN.ID1 ---
Date of Service
Date of Service: April 25, 2024
Today's Communication
I will follow up outstanding labs ordered by myself hep b/c and cryoglobulins and notify patient of next steps if positive
ID service will no longer actively follow this patient please recall for further questions
Assessment / Plan
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
Not known to be immunosuppressed, no known rheumatologic disease
- first diagnosed 2020, had bronchoscopy and pathology at that time - rheumatologic workup was negative at that time; responded to steroids at that time and with 3 subsequent episodes
- responding to steroids in my opinion
- await cryoglobulins, hep B/C serologies. Note neg hep C 2017
- complements normal, immunoglobulins essentially normal
- HIV 4th gen negative - notified patient
- steroid management per pulmonary, no objection from my perspective
- follow up with pulmonary service
Hemoptysis
- agree that could be due to antiplatelet therapy
- no recorded fevers, weight is stable compared to 2020, with streaky hemoptysis with progression on steroids
- already had trial of a quinolone without improvement
- noncovid viral infections are possible - management would be supportive
Chief Complaint
-: Leukocytosis and Other (cryptogenic organizing pneumonia )
Subjective / Review of Systems
afebrile
bp stable
persistent leukocyotsis on steroids
cr stable
complements normal
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
Vital Signs / Physical Exam
Vital Signs
Vital Signs
Temp Pulse Resp BP Pulse Ox
97.3 F 76 20 134/96 96
04/25/24 08:02 04/25/24 08:00 04/25/24 04:16 04/25/24 07:41 04/25/24 08:32
Physical Exam
Constitutional: No Acute Distress
Cardiovascular: Regular Rate and S1/S2; Negative Murmur or Rub
Pulmonary: Clear and Symmetric; Negative Wheezes or Rales
Gastrointestinal: Soft, Non Tender, Non Distended and Normal Bowel Sounds
Skin: Warm and Dry; Negative Rash or Jaundice
Objective Data
Lab Data
Lab Results
04/25/24 03:49
04/25/24 03:49
ESR 7 mm/hour (0-20) 04/22/24 05:15
PT 21.1 Sec (11.4-14.6) H 04/22/24 05:15
INR 1.81 04/22/24 05:15
APTT 35.6 Sec (23.4-35.0) H 04/22/24 05:15
Estimated Creat Clear 119 ml/min 04/25/24 03:49
Lactic Acid Cancelled 04/19/24 11:45
Total Bilirubin 1.2 mg/dl (0.2-1.3) 04/22/24 05:15
AST 33 U/L (17-59) 04/22/24 05:15
ALT 61 U/L (0-50) H 04/22/24 05:15
Alkaline Phosphatase 61 U/L (38-126) 04/22/24 05:15
C-Reactive Protein 10.00 mg/L (0.0-10.00) 04/22/24 05:15
Most recent labs reviewed.
Micro Results:
04/19/24 08:10 Blood Culture - Final
Blood/Venous No Growth - Final Report
04/19/24 07:50 Blood Culture - Final
Blood/Venous No Growth - Final Report
04/21/24 12:13 Respiratory Culture - Final
Sputum Usual Respiratory Agueda
Gram Stain - Final
04/19/24 08:10 Legionella Urinary Antigen - Final
Urine Negative for Legionella pneumophila Serogroup 1 antigen.
A negative result does not rule out the possiblity of
Legionella infection due to other serogroups or species of
Legionella. Clinical correlation is recommended.
--- NOTE | 2024-04-25 16:38 | W.PN.UPDATE ---
Update Note
Progress Note Update
Reviewed CT images with patient in the room.
Patchy bilateral groundglass opacities. No pleural effusions. No mediastinal lymph nodes.
Minimal right lower lobe consolidation.
He is clinically improving. Feels better. Not short of breath.
Much less hemoptysis-old blood on canister.
Afebrile.
Normal renal function.
Suspect this is cryptogenic pneumonia. No other organ involvement.
Bronchoscopy with transbronchial biopsies from 2020 noted.
Ideally an open lung biopsy would be neck step if precise diagnosis is required. Historically he responds well to steroids and CT of the chest clears completely. I doubt there is any new entity in here.
I had an extensive discussion with patient regarding this. And he would like to hold off on further interventions unless is absolutely necessary.
I am more concerned about his cardiac history and being off anticoagulation and antiplatelets for several days.
For now continue with IV corticosteroids
If there is no overnight acute events, restart anticoagulation tomorrow.
Potentially can DC in the next 24 hours.
Short-term follow-up in my office in about 2 weeks.
[2024-04-25] MEDS: LIPITOR 40 MG PO (17:15)
--- NOTE | 2024-04-25 19:30 | PTCARENOTE ---
report received from previous RN, walking rounds done. pt in chair, AAOx4. pt denies any pain. VSS. NSR 60's. POX 98% on room air. PIV intact and patent. see worklist for full assessment, VS, and interventions. pt resting comfortably w call light in
reach.
[2024-04-25 20:46] LABS: Hepatitis C Antibody Negative (Negative)
[2024-04-25 20:49] LABS: Hepatitis B Surface Antigen Negative (Negative)
[2024-04-25 21:06] LABS: Hepatitis B Core Ab, Total Negative (Negative); Hepatitis B Surface Antibody Negative
[2024-04-26 04:47] VITALS: BP 149/79
--- NOTE | 2024-04-26 04:50 | PTCARENOTE ---
pt VSS, no changes in assessment overnight. SR/SB 50's-60's. POX 95-98% on room air. AM labs drawn and sent. pt resting between care.
[2024-04-26 05:00] LABS: Hematocrit 40.5 % (39.0-52.0); Hemoglobin 14.6 g/dL (13.0-18.0); Mean Corpuscular Hgb 32.6 pg (27.0-31.0); Mean Corpuscular Volume 90.4 fL (80.0-94.0); Mean Platelet Volume 10.3 fL (7.4-10.4); Platelet Count 193 10^3/uL (130-400); Red Blood Cell Count 4.48 10^6/uL (4.70-6.10); Red Cell Dist. Width 12.5 % (11.5-14.5); White Blood Cell Count 18.6 10^3/uL (4.8-10.8)
[2024-04-26 05:34] LABS: Blood Urea Nitrogen 39 mg/dl (9-20); Calcium 8.9 mg/dl (8.4-10.2); Carbon Dioxide 30 mmol/L (22-30); Chloride 101 mmol/L (98-107); Estimated Creatinine Clearance 119 ml/min; Glucose 127 mg/dl (70-99); Potassium 4.5 mmol/L (3.5-5.1); Sodium 136 mmol/L (135-145); eGFR > 60.00
--- NOTE | 2024-04-26 06:14 | W.PN.HOSP.TC ---
Today's Communication/Plan
-
discharge
Assessment / Plan
Assessment / Plan
HPI: 64-year-old male with a past medical history of cryptogenic pneumonia, paroxysmal atrial fibrillation on Xarelto, CAD, and hypertension presents with worsening shortness of breath. This is his third ER visit in 1 week. Patient was seen on
04/12, 04/17, and today for shortness of breath. He had a chest CT done on 04/12, which shows interstitial right-sided pneumonia. He was discharged on Levaquin and steroids, which he took without improvement. He also was back into rapid atrial
fibrillation, and resumed on Xarelto and metoprolol. He was seen again in the ED on 04/17 for chest pain, and was found to have a fast heart rate. His metoprolol succinate was increased, he was discharged again. Patient reports finishing his
steroids 2 days ago. He feels that his shortness of breath has been noticeably worse overnight, and came back to the ER this morning. Associated symptoms include hemoptysis. He denies fever. No nausea, no vomiting.
# Cryptogenic organizing pneumonia
#Hemoptysis
#Shortness of breath
#Acute decompensation overnight, Hypoxic Respiratory Failure requiring up to 10L, possibly due to heart failure vs flash pulm edema vs PNA, transferred to IMU 04/22
Repeat CXR appreciated possible pulm edema (most likely) vs PNA (less likely)
Hypoxia resolved, currently on room air
Urine Legionella antigen negative, follow-up sputum Gram stain and culture
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
Procalcitonin neg. COVID neg x2 04/19 04/22
Appreciate pulmonology input, IV steroids to transition to 40 mg prednisone cont till seen by pulm outpt, bronchodilators. repeat CT chest consistent with cryptogenic pneumonia
Plavix placed on hold last dose 04/21 due to hemoptysis, Xarelto held 04/24 (recent cardioversion 04/21) ok to resume Xarelto tomorrow 04/27 as per pulm, continue hold plavix pending outpt followup with primary [place] [employer]ating [employer] Operator team.
Seen by ID, recommend monitoring off antibiotics
#Possible Acute HFpEF vs Flash Pulm Edema
#Acute Respiratory Failure requiring 10L as above
Recent BNP 1999
DOC 04/21 noted preserved EF 60-65% Mod MR
Status post IV Lasix, currently on oral Lasix as per cardio, trend creatinine, trend daily weights
#Leukocytosis steroid induced
#Rapid atrial fibrillation
S/p PVI 2011, 2012 and 2017
S/p post cardioversion 05/2018
Appreciate cardiology input, status post successful DOC guided cardioversion on 04/21
Continue metoprolol succinate 100 mg twice daily, held Xarelto 04/24 -resuming as above
04/23�started Tikosyn loading
#Coronary artery disease
Continue statin
Plavix held secondary to hemoptysis
#History of benign essential hypertension
Hold home candesartan/hydrochlorothiazide in case we need to go up on more rate controlling medications for his rapid atrial fibrillation
DVT prophylaxis�SCDs
Full code
Medically stable for discharge home with outpatient follow up recommendations
discussed with patient, cardiology, pulmonology
Total Time Preparing Discharge ___50____ minutes including examination of the patient, summary of the hospital stay, instructions for continuing care to all relevant caregivers; and preparation of discharge records, prescriptions, and referral
forms if necessary.
Physical Exam
General: No acute distress
HEENT: Normocephalic, Atraumatic, EOMI, MMM,
Respiratory: clear to auscultation bilateral
Cardiac: Normal S1/S2, regular rate and rhythm
GI: Soft, Nontender, Nondistended, Normal Bowel Sounds
Extremities: No Clubbing, Cyanosis, Edema
Neuro: AOx3
Psych: Calm, Cooperative
Derm: No Visible lesions
Anticipated Discharge: Today
Subjective/Interval History
-
Date of Service: April 26, 2024
Seen and examined at bedside in no acute distress sitting up comfortably in chair. Continues with hemoptysis though amount is decreased. Denies new acute issues. reports overall feeling well ambulating without issues or need for assist device.
Objective Data
-
Labs:
Laboratory Results
04/26/24
04:52
WBC 18.6 H
Hgb 14.6
Hct 40.5
Plt Count 193
Sodium 136
Potassium 4.5
Chloride 101
Carbon Dioxide 30
BUN 39 H
Creatinine 0.8
Glucose 127 H
Calcium 8.9
Vital Signs:
Vital Signs
Temp Pulse Resp BP Pulse Ox
98.2 F 57 16 149/79 95
04/26/24 04:45 04/26/24 04:47 04/26/24 04:45 04/26/24 04:47 04/26/24 04:45
I&O
04/24/24 04/25/24 04/26/24
06:59 06:59 06:59
Intake Total 560 / 560 840 / 840
Output Total 900 / 900 1900 / 1900
Balance -340 / -340 -1060 / -1060
[2024-04-26 06:37] VITALS: BP 143/91
[2024-04-26] MEDS: COSOPT EYE DROPS 1 DROP BOTH EYES (08:14)
[2024-04-26] MEDS: THERAGRAN 0.5 TABLET PO (08:15)
[2024-04-26] MEDS: LASIX 20 MG PO (08:15)
[2024-04-26] MEDS: VISBIOME 1 CAP PO (08:15)
[2024-04-26] MEDS: SOLU-MEDROL PF 40 MG IV (08:15)
[2024-04-26] MEDS: TIKOSYN 250 MCG PO (08:20)
[2024-04-26] MEDS: TOPROL XL 100 MG PO (08:21)
--- NOTE | 2024-04-26 10:00 | W.PN.CARDCBS ---
Addendum entered and electronically signed by Rommel Richard MD 04/26/24 16:17:
I saw and examined the patient.
The Postal Worker's note was reviewed and I agree with the note.
Comment: Briefly, 64-year-old man past medical history of persistent atrial fibrillation with prior ablations and cryptogenic organizing pneumonia who presented with hemoptysis and was found to be in atrial fibrillation with rapid ventricular
response
Underwent DOC direct-current cardioversion last week with catholic of sinus rhythm
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 Treated with high-dose steroids with improvement in hemoptysis and he is no longer requiring supplemental oxygen.
Anticoagulation and antiplatelet agents were held due to hemoptysis
Per pulmonology ok to resume Xarelto at this time
Possible restart of Plavix later this week after evaluation by his primary rn hematology if no further hemoptysis
Initiated on Tikosyn to maintain sinus rhythm, would continue at 250 mcg every 12 hours
Started on Lasix in place of hydrochlorothiazide due to interaction with Tikosyn
Stable for discharge from my perspective with plan to follow-up with his primary rn hematology at [facility]
Original Note:
Today's Communication / Plan
-
remains with hemoptysis, resume xarelto when ok per pulm. transition to eliquis as OP once uses up xarelto at home per patient preference
likely hold on resuming antiplatelet until follow up 04/25 with primary cardiology team
po lasix 20mg daily. NO HCTZ with tikosyn
continue tikosyn 250mcg Q12H
OP follow up with primary cardiology team at [facility] scheduled 04/28
Impression / Plan
-
Primary Local Telephone Operator: Dr. Edgar Starkey of [facility]
Care Information Associate: Dr. Lund of [place]
Assessment:
Acute on chronic respiratory distress with multiple ER visits with concern for acute heart failure preserved ejection fraction with hemoptysis in the setting of Plavix and Xarelto use
History of cryptogenic organizing pneumonia requiring prednisone with negative rheumatological workup
Mild ARMEN
RLL pulmonary nodule (4-5 mm) - present since 01/2022
Personal history of COVID-19 (12/2022)
Paroxysmal atrial fibrillation and atrial flutter, now with RVR
Status post flutter ablation in 2011
Status post PVI 2012
Status post repeat ablation 10/2018 with focal reconnection at CTI isthmus and LSPV
cardioversion 04/21/2024 successful with 200 J x 1
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
Former smoker, occasional cigars
ETOH use
Elevated CRP
ECHO 06/2022: EF 65%, mild concentric LVH, mild MR, trace TR, PAP 35 to 40 mmHg
Echo 04/20/2024: EF 65%, mild concentric LVH, moderate MR, mild TR, PAP 31 mmHg
Transesophageal echocardiogram prior to cardioversion 04/21/2024: Normal biventricular size and systolic function. EF estimated 60 to 65%. Dilated atria. No left atrial appendage thrombus. Moderate MR. No mitral valve prolapse. No significant
aortic valve disease. Mild TR. Interatrial septum was reported normal
-DC cardioversion 04/21/2024 successful with 200 J x 1
Plan:
-Patient presented with shortness of breath, etiology unclear, likely multifactorial. He had had 3 ER visits in the last 8 days. He is followed for cryptogenic PNA per pulm
-He was in A-fib with rapid response upon arrival. Underwent cardioversion 04/21/2024, Successful in restoring sinus rhythm
-he was started on tikosyn this admission as no left atrial appendage thrombus on DOC 04/21. continue 250mcg Q12H.
-evening post CV developed worsening SOB with increased O2 requirements. diuresed with improvement, now on po lasix 20mg daily to continue upon DC. was on HCTZ prior to admission, stopped with tikosyn initiation.
-O2 sats stable on RA
-Echo 04/20 with preserved EF and moderate MR
-he remains with hemoptysis. hgb stable at 14.6. OP xarelto and plavix remain on hold. ideally resume OAC as soon as possible given recent CV. would likely hold on resuming antiplatelet for now and can discuss with his primary cardiology team at
upcoming appt 04/28/24
-He reported Xarelto is expensive. Case management assessed cost to patient, and appears Eliquis is more affordable, however patient wants to use up the rest of his xarelto at home before switching.
-was for bronch this admission, however held due to worsening respiratory status. no plans to complete at present per pulm notes
-OP follow up with [facility] rn hematology arranged. patient is very eager for DC
-d/w nursing
-d/w hospitalist, pulm via TT
Progress Note - Local Telephone Operator
Subjective
Date of Service: April 26, 2024
reports breathing improved from last week but still 'not great.' remains with hemoptysis
Objective
Labs:
04/26/24 04:52
04/26/24 04:52
Labs
Hgb 14.6 g/dL (13.0-18.0) 04/26/24 04:52
Hct 40.5 % (39.0-52.0) 04/26/24 04:52
Plt Count 193 10^3/uL (130-400) 04/26/24 04:52
PT 21.1 Sec (11.4-14.6) H 04/22/24 05:15
INR 1.81 04/22/24 05:15
APTT 35.6 Sec (23.4-35.0) H 04/22/24 05:15
Sodium 136 mmol/L (135-145) 04/26/24 04:52
Potassium 4.5 mmol/L (3.5-5.1) 04/26/24 04:52
BUN 39 mg/dl (9-20) H 04/26/24 04:52
Creatinine 0.8 mg/dL (0.7-1.3) 04/26/24 04:52
Glucose 127 mg/dl (70-99) H 04/26/24 04:52
Vital Signs and I&O:
Vital Signs
Temp Pulse Resp BP Pulse Ox
98.6 F 71 16 143/91 98
04/26/24 06:37 04/26/24 08:00 04/26/24 04:45 04/26/24 06:37 04/26/24 08:00
Vital Signs
Temp Pulse Resp BP Pulse Ox
98.6 F 71 16 143/91 98
04/26/24 06:37 04/26/24 08:00 04/26/24 04:45 04/26/24 06:37 04/26/24 08:00
Intake & Output
04/24/24 04/25/24 04/26/24 04/27/24
07:59 07:59 07:59 07:59
Intake Total 560 / 560 840 / 840 480 / 480
Output Total 900 / 900 1900 / 1900
Balance -340 / -340 -1060 / -1060 480 / 480
Physical Exam
Physical Exam
GEN: No distress, awake, alert, oriented x3. sitting in chair
HEENT: supple, anicteric, mmm, EOMI
LUNGS: CTA B/L
CV: Reg, S1/S2, no murmur
EXT: No cyanosis, clubbing, edema
NEURO: Gross non-focal
SKIN: Warm, pink, dry. No rash
--- NOTE | 2024-04-26 10:31 | W.HF.CON ---
Heart Failure
- LV Function
Left ventricular function study result: LV Ejection fraction >40%
Ejection Fraction Percentage: 65
- ARNI
Patient already on ARNI: No
Heart Failure ARNI Not Indicated: LV Ejection Fraction >/= 40%
- ACEI/ARB
Patient already on ACEI/ARB: No
Heart Failure ACEI/ARB Not Indicated: LV Ejection Fraction > 40%
- Beta Hank
Patient already on Evidence Based Beta Hank: Yes
- Mineralocorticord Receptor Antagonist
Patient already on MRA: No
Heart Failure MRA Not Indicated: LV Ejection Fraction > 40%
- SGLT-2 Inhibitor
Patient already on SGLT-2 Inhibitor: No
Heart Failure SGLT-2 Inhibitor Not Indicated: LV Ejection Fraction >40%
- Afib Anticoagulation
Patient already on Anticoagulation for Afib: Yes
- NYHA CHF Classification
NYHA CHF Classification Level: Class III - Symptoms w/ min exertion, interferes w/ nml daily activity
- ACC/AHA Stage
ACC/AHA Stage: Stage C: Symptomatic Heart Failure
--- NOTE | 2024-04-26 12:29 | W.PN.PUL3 ---
Today's Communication / Plan
-
Transition to prednisone 40 mg until our next visit
Okay to restart Xarelto tomorrow
Continue to hold Plavix until seen by his peeler operator
Further imaging in the outpatient setting
Short-term outpatient follow-up
Discharge planning for today
Sign off
Assessment
-
Assessment:
64-year-old male with a past medical history of A-fib on Xarelto, hypertension, history of pericarditis and COVID-19 who presents with SOB and chest pain that started about 2 weeks ago. On 04/12/2024 patient came to the ER with cough and hemoptysis
for 1 day. Hb was 10.5 that day. Symptoms began that morning with wheezing, shortness of breath and moderate amount of sputum with blood seen. He also had chest pain with tightness. CTA chest showed mild patchy GGO in the bases with a RLL 4-5 mm
nodule. He was tachycardic into the 110s, and was offered admission but he refused as his cardiology care is at [facility]. He was discharged home with 7-day course of Levaquin, 5-day course of 40 mg prednisone daily. He came back again to the ER 5
days later with arm heaviness and chest pain, was found to be in A-fib with RVR. Heart rate improved with IV Lopressor and increasing his metoprolol dose. Again he was offered admission for management with DOC with cardioversion but patient
refused. Now that he is back he is endorsing similar symptoms with SOB + chest pain. He is afebrile in the ER to 97.7 �F, heart rate labile between 60�116, he is breathing at 15-22 breaths/min, he was saturating 96% on room air and BP 132/88.
Labs showed leukocytosis to 11.3, Hb 14.1, absolute eosinophils are WNL at 100, troponin WNL at 0.028, proBNP 2700 (was 1450 on 04/12/2024), COVID-19 action negative, blood cultures were collected, and CXR showed no acute cardiopulmonary process. He
was started on Cardizem drip due to rapid A-fib, and given Rocephin + doxycycline. Pulmonary service now consulted 04-19 for additional management/recommendations.
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
Hypertension, paroxysmal A-fib on Xarelto, history of pericarditis, history of COVID-19 (12/2022), single-vessel CAD with VAMP THROATER of mid RCA s/p PCI in 09/2023, alcohol use disorder
Impression:
#Acute respiratory distress - concern for acute pulmonary edema with hemoptysis in setting of plavix/xarelto use
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
-CTA chest from 04/12/2024: basilar predominant peribronchovascular GGOs. No compelling evidence of recurrence of WASHER ENGINEER HEL[employer], but suspected acute decompensated heart failure given his uncontrolled A-fib/flutter especially with his elevated proBNP
Has no microscopic hematuria on UA, hence doubt vasculitis. The patient is very convinced that his A-fib has started after he developed his 'pneumonia' symptoms, which are very similar to his prior pneumonia symptoms when he had been diagnosed
with WASHER ENGINEER HELPER in the past
- Repeat CT chest with contrast on 04/21 showed worsening bilateral patchy GGO, particularly in RLL
#Transaminitis with elevated ALT (73)
#CAMPOS (Cr baseline ~0.8-1)
#RLL pulmonary nodule (4-5 mm) - present since 01/2022
#Mild ARMEN
#History of cryptogenic organizing pneumonia requiring prednisone with negative rheumatological workup
#Personal history of COVID-19 (12/2022)
#Alcohol use disorder
#History of single-vessel CAD with VAMP THROATER of mid RCA s/p PCI in 09/2023
#Tobacco use disorder (occasional cigar use, otherwise he quit in 2006 with a 34-gjad-vcsb history prior)
Plan:
#Hemoptysis: Acute episode has resolved.
Last 36 hours minimal active bleeding. Mainly old blood.
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
Abnormal CT Chest with worsening perivascular, centrilobular ground glass opacities
Rheumatological/CTD workup checked on 04/20 � RF, CCP, PR3, MPO, Letty-1, SS-A/B, Scl-70, A-centromere Ab, a-GBM negative. C3/4, cryoglob, Igs pending
Originally planned for bronch with BAL 04-22 with possible biopsy, but given his worsening oxygen requirements with tenuous respiratory status, bronch cancelled.
- Plavix on hold since last dose 04-21 AM: pharmacy called 04-24 with [facility] (rivaroxaban last dose 04-22 AM)
DDx includes heart failure in setting of antiplatelet therapy; less likely DDx also includes vasculitis vs infection (viral)
- Held off on BAL 04-22
overall volume improving 04/26/2024. No active bleeding. Last 36 hours. Mainly dark blood.
Continue treating for presumed WASHER ENGINE[employer] HELPER with systemic steroids-historically responds well to steroids with complete clearance of infiltrates.
Started on 04/19 with solumedrol 500mg IV daily. MP down to 40 mg IV qd since 04-20, continue at same dose-will consider transition to prednisone depending on CAT scan of the chest in 04/25/2024.
Transition to prednisone 40 mg today 04/26/2024. Will continue on the current dose until her next visit.
-
Pulmonary process has been steroid responsive in the past. Completely clear with prolonged prednisone course. Recurrent upon withdrawal of the steroids since 2020.
Dr. Sterling have discussed the need for ongoing immunosuppression-likely will require prolonged low-dose prednisone and consider CellCept. This has been discussed multiple times in the outpatient setting but usually he completely recovers.
In my opinion, open lung biopsy will not provide additional information. In his case, given underlying cardiac issues will be a very high risk procedure.
With negative rheumatologic serologies twice in the last 3 years unlikely that this represents vasculitis or connective tissue disease.
Normal renal function, no anemia. No proteinuria. Doubt vasculitic process.
-
CT chest 04/25/2024: Showed patchy bilateral groundglass opacities. No pleural effusion or mediastinal lymphadenopathies.
Continue to suspect cryptogenic pneumonia. Based on prior response to steroids and transbronchial biopsy that showed organizing fibrosis.
Ideally open lung biopsy will be procedure to make a diagnosis. As above high risk procedure unlikely to provide further information at this point.
Hold off on any additional interventions at this point. Seems to be responding to steroids.
-
Unfortunately still smoking occasional cigar at home along with bourbon.
Denies epistaxis
Denies hematuria
Denies hematemesis
Denies hematochezia or melena
Denies chest pain
CXR 04-23: portable film, reviewed, pending report. Improved pulm vasc congestion (considering difference in underpenetrated film 04-22)
Repeat CT chest 04/25/2024. Order has been placed.
-
TTE 06/2022 although not sure he has had more recent studies as his cardiac workup was done at [facility]
-TTE done on 04/20 showing normal RV size/function, moderate MR, mild TR, mild pulmonary hypertension, with preserved LVEF at 65% with mild concentric LVH.
-DOC done 04/21 during cardioversion - moderate MR, normal JUAN with no thrombus seen, no regional WMA, LVEF 60-65%, normal RV size/function and normal pulmonary veins
-
Hypoxemia suspect related to recurrent cryptogenic pneumonia and aspiration pneumonitis post DOC. Heart failure component also possibility. Resolved.
- Incentive spirometer encouraged
- prn nebulized bronchodilators
- Procal is <0.05 --> doubt this is a bacterial infection. He remains non-toxic appearing and afebrile - continue to hold off on antibiotics.
Currently nontoxic, afebrile and not hypoxemic.
-
#Lung Nodule
- Regarding his RLL subpleural pulmonary nodule, this has been stable since at least January 2022, and does not need any further radiographic surveillance
ID following
HIV negative, pending Hep B/C serologies
Cardiology :
Rate controlled.
Status post diuresis
Tikosyn started
From my perspective okay to restart Xarelto tomorrow at home.
Plavix to be determined by his peeler operator later this week.
-
Advised patient to monitor his hemoptysis. If active bleeding to call back. May need to prolong holding antiplatelets and anticoagulation.
#CAMPOS: Resolved
Strongly advised to quit smoking on a permanent fashion. very supportive, she plans to get rid of any tobacco and paraphernalia at home
Discussed with cardiology by Dr. Sterling 04/25/2024 and 04/26/2024.
Discussed with primary team.
Discussed with cardiology
Okay for discharge from my perspective as above. Short-term follow-up and close monitoring.
Should his hemoptysis recurs he should present immediately to the emergency room and hold all antiplatelets and anticoagulants

Diagnostic tests:
CT Chest with IV Contrast 04-21-2024: Multifocal pneumonia with moderate patchy groundglass parenchymal airspace disease throughout both lungs, most prominent in the right lung base
CTA Chest 04-12-2024:
There is no pulmonary embolism
There is mild groundglass airspace disease in the basilar portion of the right lower lobe, new compared with the prior study suggesting interstitial pneumonia
TTE 04-20-2024:
Normal left ventricular chamber size. Normal left ventricular systolic function. Left ventricular ejection fraction is 65% by Garcia's method. Mild concentric left ventricular hypertrophy. Diastolic function indeterminate due
to atrial fibrillation.
Normal right ventricular size and function.
Moderate mitral regurgitation.
Mild tricuspid regurgitation. Estimated pulmonary artery pressure of 31 mmHg, assuming a right atrial pressure of 8 mmHg.
Compared to prior study dated 06/09/2022, mitral regurgitation was previously mild, otherwise no significant change
Subjective Data
-
Date of Service:
Date of Service: April 26, 2024
Chief Complaint: Pulmonary Follow Up
Subjective:
Minimal hemoptysis last 36 hours.
Mainly old blood.
Denies shortness of breath
Denies any coughing
Feels well.
Tolerated steroids
Denies chest pain or palpitations.
Objective Data
Data Reviewed
Vital Signs / I&O / Oxygen:
Vital Signs
Temp Pulse Resp BP Pulse Ox
98.6 F 71 16 143/91 98
04/26/24 06:37 04/26/24 08:00 04/26/24 04:45 04/26/24 06:37 04/26/24 08:00
Intake and Output
04/25/24 04/26/24 04/27/24
06:59 06:59 06:59
Intake Total 840 / 840 480 / 480
Output Total 1900 / 1900
Balance -1060 / -1060 480 / 480
SaO2 98
Nasal Cannula flow liters per 2
minute
Physical Exam
General: Respiratory Distress (Negative), Comfortable, Chills (Negative) and Good Appetite
HEENT: Normocephalic, Anicteric, Moist Mucous Membranes, Thrush (n) and Other (no nasal, oral or pharyngeal signs of bleeding)
Cardiovascular: S1-S2, JVD (n), Peripheral Edema (Negative) and Calf Tenderness (n)
Respiratory: Clear, Rhonchi (Negative), Non-Labored Respirations and Stridor (n)
GI: Soft, Non Distended, Non Tender and Normal Bowel Sounds
Neurology: Awake and AO x 3
Skin: Warm, Dry, Cyanosis (n) and Jaundice (Negative)
Labs/Micro/Reports
Lab Data
04/26/24 04:52
04/26/24 04:52
Microbiology
04/19/24 08:10 Blood/Venous Blood Culture - Final
No Growth - Final Report
04/19/24 07:50 Blood/Venous Blood Culture - Final
No Growth - Final Report
04/21/24 12:13 Sputum Respiratory Culture - Final
Usual Respiratory Agueda
04/21/24 12:13 Sputum Gram Stain - Final
[2024-04-26 12:36] VITALS: BP 136/88
--- NOTE | 2024-04-26 13:52 | W.DCSUMMARY ---
Discharge Summary
Discharge Data
Date of Admission: 04/19/24
Date of Discharge: 04/26/24
-
Pending Results: No
Discharge Plan
-
Patient Disposition: Home (Routine Discharge)
Discharge Diagnosis/Procedures: Cryptogenic organizing pneumonia
Hemoptysis
Resolved Acute Hypoxic Respiratory Failure possibly due to aspiration vs flash pulmonary edema vs Acute Heart Failure with Preserved Ejection Fraction
Leukocytosis steroid induced
Atrial Fibrillation with Rapid Ventricular Rate successfully Cardioverted 04/21
Appreciate cardiology input, status post successful DOC guided cardioversion on 04/21
Continue metoprolol succinate 100 mg twice daily, held Xarelto 04/24 -resume when okay with pulmonology
Coronary artery disease
Hypertension
Acute Kidney Injury Resolved
Condition: Fair
Diet: Low Cholesterol and 2 Gram Sodium
Activity: As tolerated
Driving Restrictions: As prior to admission
Bathing Restrictions: None
Blood Work: Please repeat CBC and BMP with primary care provider in 1 week of discharge
Activity Restrictions/Additional Instructions:
Please keep your appointments with cardiology, follow up with primary care provider in 1 week of discharge, and follow up with pulmonology in 2 weeks.
Lasix has been started for possible heart failure with preserved ejection fraction.
Home Metoprolol has been increased to 100 mg twice a day for rate control atrial fibrillation
Prednisone 40 mg daily has been prescribed to treat cryptogenic pneumonia. Follow up with pulmonary in 2 weeks for further dosing recommendations/possible taper.
For better control atrial fibrillation you've been started on Tikosyn. Candesartan-hydrochlorothiazide has been discontinued as hydrochlorothiazide interacts with Tikosyn.
Please take medications as prescribed/recommended and follow up with primary care provider and/or other healthcare provider involved in your care for refills and/or further adjustment to your medication regimen as necessary.
Instructions: *PCP/Other Count Team Clerk Heart Failure Instructions
Referrals:
Marc Grover DO [Active] - 04/27/24 11:20 am (You have a follow up visit with Dr. Grover at the [facility] in [place]. Please call with questions.)
Ricardo Frank MD [Active] - in two weeks (May see TE, [facility] [place].)
Jacinta Kenyon MD [Family Provider] - in one week
Prescriptions:
New
prednisone 20 mg Tablet
40 mg PO DAILY 20 Days Qty: 40 0RF
metoprolol succinate 100 mg Tablet Extended Release 24 Hr
100 mg PO BID 30 Days Qty: 60 0RF
furosemide 20 mg Tablet
20 mg PO DAILY 30 Days Qty: 30 0RF
dofetilide 250 mcg Capsule
250 mcg PO Q12H 30 Days Qty: 60 0RF
Continued
atorvastatin 40 mg Tablet
40 mg PO QPM
therapeutic multivitamin Tablet
0.5 tab PO BID
dorzolamide-timolol 22.3-6.8 mg/mL Drops
1 drp BOTH EYES BID
Visbiome 112.5 billion cell Capsule
1 cap PO DAILY
omega 3-mqk-fpt-fish oil [Fish Oil] 1,200 (144-216) mg Capsule
1 cap PO TID
Xarelto 20 mg tablet
20 mg PO DAILY
Held
clopidogrel 75 mg Tablet
75 mg PO DAILY
Hold Instructions: Follow up with cardiology to determine when safe to resume
Patient Comments:
04/19/24: patient states he gets the medication from [facility], despite no records indicating so recently.
Discontinued
metoprolol succinate 25 mg Tablet Extended Release 24 Hr
50 mg PO Q12H
candesartan-hydrochlorothiazid 32-25 mg Tablet
1 tab PO DAILY
Discharge Orders:
Discharge Patient (As Directed); Ordered 04/26/24
Ordered By: Lawrence Malone
Care Plan Goals
Care Plan Goals:
Problem: Readiness for enhanced knowledge related to diagnosis and treatment plan
Goal: Understand your diagnosis and treatment plan needs, including medications if applicable.
Instructions: Know your diagnosis, underlying causes and treatment plan options, including medications if applicable. Consult with your health care team to learn about your diagnosis and treatment plan, including medications if applicable.
Discharge Date and Time
Print Language: ISRAELI
--- NOTE | 2024-04-26 15:08 | PTCARENOTE ---
Pt with no c/o this am. Denies any sob. Pt had 2 small amounts of hemoptysis today. Pt discharged to home with his . Discharge instructions given and reviewed with good understanding.
== END 2024-04-26 15:28 | disposition home or self-care (01) | DRG 196 ==
LOC: IVU 12:10
PROVIDERS: Internal Medicine Cardiovascular Disease; Physician Assistant Medical; ADMITTING PHYSICIAN Family Medicine; ATTENDING PHYSICIAN Internal Medicine; CONSULT PHYSICIAN Internal Medicine Cardiovascular Disease; CONSULT PHYSICIAN Internal Medicine Critical Care Medicine; CONSULT PHYSICIAN Student in an Organized Health Care Education/Training Program; EMERGENCY PHYSICIAN Emergency Medicine; FAMILY PHYSICIAN Family Medicine
PROC: 5A2204Z Restoration of Cardiac Rhythm, Single (ICD-10-PCS; 2024-04-19)
DX: J84.116 Cryptogenic organizing pneumonia (principal); I50.31 Acute diastolic (congestive) heart failure; J96.01 Acute respiratory failure with hypoxia; J69.0 Pneumonitis due to inhalation of food and vomit; R04.2 Hemoptysis; N17.9 Acute kidney failure, unspecified; D68.32 Hemorrhagic disorder due to extrinsic circulating anticoagulants; I11.0 Hypertensive heart disease with heart failure; I25.82 Chronic total occlusion of coronary artery; I25.10 Atherosclerotic heart disease of native coronary artery without angina pectoris; I48.0 Paroxysmal atrial fibrillation; G47.33 Obstructive sleep apnea (adult) (pediatric); R74.01 Elevation of levels of liver transaminase levels; R91.1 Solitary pulmonary nodule; F17.290 Nicotine dependence, other tobacco product, uncomplicated; D72.828 Other elevated white blood cell count; T38.0X5A Adverse effect of glucocorticoids and synthetic analogues, initial encounter; Z79.01 Long term (current) use of anticoagulants; Z79.02 Long term (current) use of antithrombotics/antiplatelets; Z79.899 Other long term (current) drug therapy; Z86.16 Personal history of COVID-19; Z86.79 Personal history of other diseases of the circulatory system; Z11.52 Encounter for screening for COVID-19; Z82.49 Family history of ischemic heart disease and other diseases of the circulatory system
CPT/HCPCS: 71045; 71250; 71260; 80048; 80053; 82595; 82784; 83516; 83605; 83735; 83880; 84100; 84145; 84484; 85025; 85027; 85610; 85652; 85730; 86140; 86160; 86200; 86235; 86430; 86704; 86706; 86803; 87040; 87070; 87205; 87340; 87389; 87449; 87811; 92960; 93005; 93306; 93312; 93320; 93325; 94640; 96374; 96375; 96376; 99285; Q9967

== ENCOUNTER → 2024-09-07 07:02 | Outpatient (REF) | payer BC, SELFPAY | LOC: RAD 07:02 | PROVIDERS: ATTENDING PHYSICIAN Internal Medicine Critical Care Medicine; FAMILY PHYSICIAN Family Medicine | DX: J84.9 Interstitial pulmonary disease, unspecified (principal); J84.116 Cryptogenic organizing pneumonia | CPT/HCPCS: 71250 ==

== ENCOUNTER → 2024-11-03 11:37 | Outpatient (REF) | payer BC, SELFPAY | LOC: RAD 11:37 | PROVIDERS: ATTENDING PHYSICIAN Internal Medicine Critical Care Medicine; FAMILY PHYSICIAN Family Medicine | DX: R04.2 Hemoptysis (principal) | CPT/HCPCS: 71046 ==

== ENCOUNTER → 2024-11-10 10:21 | Outpatient (REF) | payer BC, SELFPAY | LOC: HWRAD 10:21 | PROVIDERS: ATTENDING PHYSICIAN Internal Medicine Critical Care Medicine; FAMILY PHYSICIAN Family Medicine | DX: J84.116 Cryptogenic organizing pneumonia (principal) | CPT/HCPCS: 71250 ==

== ENCOUNTER → 2025-06-22 16:45 | Outpatient (REF) | payer BC, SELFPAY | LOC: RCS 16:45 | PROVIDERS: ATTENDING PHYSICIAN Internal Medicine Cardiovascular Disease; FAMILY PHYSICIAN Family Medicine | DX: I25.10 Atherosclerotic heart disease of native coronary artery without angina pectoris (principal); I25.9 Chronic ischemic heart disease, unspecified; I10 Essential (primary) hypertension | CPT/HCPCS: 93306 ==

== ENCOUNTER 2025-10-24 13:37 | Inpatient (IN) | payer BC, OTHER, SELFPAY ==
[2025-10-24] VITALS (8 sets, daily range): BP systolic 152–179; BP diastolic 89–103; BMI 29.7
[2025-10-24] MEDS: DECADRON 10 MG IV (10:35)
[2025-10-24 10:59] LABS: Hematocrit 39.7 % (39.0-52.0); Hemoglobin 13.3 g/dL (13.0-18.0); Mean Corp Hgb Conc. 33.5 g/dL (33.0-37.0); Mean Corpuscular Volume 86.1 fL (80.0-94.0); Nucleated Red Blood Cells % 0 % (-); Platelet Count 225 10^3/uL (130-400); Red Cell Dist. Width 13.7 % (11.5-14.5)
[2025-10-24 11:08] LABS: Blood Urea Nitrogen 23 mg/dl (9-20); Calcium 9.2 mg/dl (8.4-10.2); Carbon Dioxide 26 mmol/L (22-30); Chloride 104 mmol/L (98-107); Estimated Creatinine Clearance 105 ml/min; Glucose 97 mg/dl (70-99); Potassium 3.8 mmol/L (3.5-5.1); Sodium 136 mmol/L (135-145); eGFR > 60.00
--- NOTE | 2025-10-24 11:12 | ED.GENMED ---
History of Present Illness
<Rosa M Washington PA-C - Last Filed: 10/24/25 13:44>
General
Chief Complaint: Breathing Problem
Time Seen by Provider: 10/24/25 10:11
History of Present Illness
History of Present Illness:
Wisam is a 65-year-old male with past medical history of cryptogenic organizing pneumonia, A-fib not on anticoagulation who presents complaining of several days of increasing shortness of breath and cough associated with bloody sputum. Reports that
he spoke with Dr. Sterling earlier in the week and his steroids were increased to 20 mg but he has not seen any improvement since then. He was measuring he utilized a home pulse ox this morning and noted it to be between 80 and 90 which prompted him
to seek evaluation.
Past History
<Rosa M Washington PA-C - Last Filed: 10/24/25 13:44>
Past History
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
ED Past Surgical History: Cardiac and Orthopedic
Social History
Tobacco: Smoker
Alcohol: Daily
Drug: None
Personal:
Living: with family
Family History
Family History: Other
Phy Exam
<Rosa M Washington PA-C - Last Filed: 10/24/25 13:44>
General Physical Exam
General Presentation: well appearing and no apparent distress
General Skin: warm and dry
General Habitus: normal
General Mental: alert
General Hydration: appears well hydrated
ENT Exam
ENT Exam: EOMI, pharynx normal, neck supple and normocephalic
Eye Exam
Eye Exam: PERRL, cornea clear and conjunctiva normal
Cardiovascular Exam
Cardiovascular Exam: regular rate/rhythm, no edema, no murmur and normal peripheral pulses
Pulmonary Exam
Pulmonary Exam: lungs clear, no respiratory distress, no rales, no crackles, no rhonchi, no stridor, no wheezing and no cough
Gastrointestinal Exam
Gastrointestinal Exam: normal bowel sounds, non tender, soft, no organomegaly, no pulsatile mass and non distended
Neurological Exam
Neurological Exam: alert, oriented x3, no motor deficits and speech normal
Musculoskeletal Exam
Musculoskeletal Exam: full ROM and no edema
Skin Exam
Skin Exam: normal color, warm/dry, no rash and no petechia
Psychiatric Exam
Psychiatric Exam: normal mood/affect
Scores
<Rosa M Washington PA-C - Last Filed: 10/24/25 13:44>
Heart Failure Risk
Heart Failure Risk Score: Not Applicable
Course
<Rosa M Washington PA-C - Last Filed: 10/24/25 13:44>
Orders/Labs/Results
Orders:
Orders
10/24/25
Electrocardiogram (*1) Stat
Reason for Study: Chest Pain
Comment: DONE
10/24/25 10:23
Dexamethasone Sod Phosphate [Decadron] 10 mg IV NOW STA
10/24/25 10:34
Basic Metabolic Panel Urgent
Complete Blood Count/With Diff Urgent
NT-proBNP Urgent
Troponin I Urgent
10/24/25 11:13
Electrocardiogram (*1) Urgent
EKG- Treatment ONCE
10/24/25 11:19
CT Chest PE Study Urgent
Comment:
Reason For Exam: SOB, hypoxia
10/24/25 11:36
COVID-19 Antigen Urgent
Source: Nasal Swab
Influenza A+B Rapid Molecular Urgent
LONI Source: Nasal Swab
Specimen Description:
10/24/25 12:19
Azithromycin 500 mg/250 ml [Zithromax Infusion] 500 mg in 250 ml IV NOW
CefTRIAXone [Rocephin] 1,000 mg IV NOW STA
10/24/25 12:41
Procalcitonin Urgent
If negative, will antibiotics be d/c'd or not started: Yes
Does the patient have renal or hepatic impairment?: No
Any recent (w/in 48 hrs) physiologic stress (CPR, rhabdo): No
10/24/25 13:08
Admit/Transfer Patient As Directed
Co-Sign Provider:
Level of Care: Inpatient admission
Assign to:: Telemetry
Physician / Group: Isidra, Jake
Diagnosis: acute hypoxic respiratory insufficiency, cryptogenic organizing pneumonia
Reason for Telemetry: Arrhythmia
Date to Stop Telemetry: 10/27/25
Time to Stop Telemetry: 11:00
Reason for Hospitalization: acute hypoxic respiratory insufficiency, cryptogenic organizing pneumonia
Expected length of stay greater than two midnights?: Yes
ELOS- Estimated Length of Stay in days: 3
I certify the patient meets the requirements for IP care: Yes
PRN Pain Medication Management As Directed
May give lesser potent ordered pain med per pt: Yes
preference::
Protocol:: Medication orders for pain may be administered in a
manner that supports deferring to patient preference
when the pt is:
- Requesting an ordered lesser potent pain medication.
Least to most potent pain medications are defined
as: acetaminophen < NSAID < tramadol < opioids
(morphine, oxycodone, hydromorphone).
- Requesting a lesser dose of the same medication IF
ORDERED.
- Requesting a less intrusive route of administration
if both routes are prescribed by the provider (PO <
IV).
10/24/25 13:10
Code Status As Directed
Resuscitation Status: Full Code
10/27/25 11:00
DC Protocol for Telemetry ONCE
Abnormal Lab Results
10/24/25
10:34
WBC 12.8 H 10^3/uL
(4.8-10.8)
RBC 4.61 L 10^6/uL
(4.70-6.10)
Absolute Neuts (auto) 10.4 H 10^3/uL
(1.4-6.5)
Absolute Lymphs (auto) 0.7 L 10^3/uL
(1.2-3.4)
Absolute Monos (auto) 1.5 H 10^3/uL
(0.1-0.6)
Neutrophils % 81.8 H %
(42.2-75.2)
Lymphocytes % 5.8 L %
(20.5-51.1)
Monocytes % 11.4 H %
(1.7-9.3)
BUN 23 H mg/dl
(9-20)
10/24/25 10:34
10/24/25 10:34
Vital Signs
Initial and Last Documented VS:
Initial Vital Signs
Temp Pulse Resp BP Pulse Ox
36.4 C 94 20 179/100 95
10/24/25 10:03 10/24/25 10:03 10/24/25 10:03 10/24/25 10:03 10/24/25 10:03
Last Documented Vital Signs
Temp Pulse Resp BP Pulse Ox
36.4 C 94 19 168/99 96
10/24/25 10:03 10/24/25 13:45 10/24/25 13:45 10/24/25 12:00 10/24/25 13:45
<Jack Mejia, - Last Filed: 10/24/25 15:01>
Orders/Labs/Results
Orders:
Orders
10/24/25
Electrocardiogram (*1) Stat
Reason for Study: Chest Pain
Comment: DONE
10/24/25 10:23
Dexamethasone Sod Phosphate [Decadron] 10 mg IV NOW STA
10/24/25 10:34
Basic Metabolic Panel Urgent
Complete Blood Count/With Diff Urgent
NT-proBNP Urgent
Troponin I Urgent
10/24/25 11:13
Electrocardiogram (*1) Urgent
EKG- Treatment ONCE
10/24/25 11:19
CT Chest PE Study Urgent
Comment:
Reason For Exam: SOB, hypoxia
10/24/25 11:36
COVID-19 Antigen Urgent
Source: Nasal Swab
Influenza A+B Rapid Molecular Urgent
LONI Source: Nasal Swab
Specimen Description:
10/24/25 12:19
Azithromycin 500 mg/250 ml [Zithromax Infusion] 500 mg in 250 ml IV NOW
CefTRIAXone [Rocephin] 1,000 mg IV NOW STA
10/24/25 12:41
Procalcitonin Urgent
If negative, will antibiotics be d/c'd or not started: Yes
Does the patient have renal or hepatic impairment?: No
Any recent (w/in 48 hrs) physiologic stress (CPR, rhabdo): No
10/24/25 13:08
Admit/Transfer Patient As Directed
Co-Sign Provider:
Level of Care: Inpatient admission
Assign to:: Telemetry
Physician / Group: Jake Miner
Diagnosis: acute hypoxic respiratory insufficiency, cryptogenic organizing pneumonia
Reason for Telemetry: Arrhythmia
Date to Stop Telemetry: 10/27/25
Time to Stop Telemetry: 11:00
Reason for Hospitalization: acute hypoxic respiratory insufficiency, cryptogenic organizing pneumonia
Expected length of stay greater than two midnights?: Yes
ELOS- Estimated Length of Stay in days: 3
I certify the patient meets the requirements for IP care: Yes
PRN Pain Medication Management As Directed
May give lesser potent ordered pain med per pt: Yes
preference::
Protocol:: Medication orders for pain may be administered in a
manner that supports deferring to patient preference
when the pt is:
- Requesting an ordered lesser potent pain medication.
Least to most potent pain medications are defined
as: acetaminophen < NSAID < tramadol < opioids
(morphine, oxycodone, hydromorphone).
- Requesting a lesser dose of the same medication IF
ORDERED.
- Requesting a less intrusive route of administration
if both routes are prescribed by the provider (PO <
IV).
10/24/25 13:10
Code Status As Directed
Resuscitation Status: Full Code
10/27/25 11:00
DC Protocol for Telemetry ONCE
Abnormal Lab Results
10/24/25
10:34
WBC 12.8 H 10^3/uL
(4.8-10.8)
RBC 4.61 L 10^6/uL
(4.70-6.10)
Absolute Neuts (auto) 10.4 H 10^3/uL
(1.4-6.5)
Absolute Lymphs (auto) 0.7 L 10^3/uL
(1.2-3.4)
Absolute Monos (auto) 1.5 H 10^3/uL
(0.1-0.6)
Neutrophils % 81.8 H %
(42.2-75.2)
Lymphocytes % 5.8 L %
(20.5-51.1)
Monocytes % 11.4 H %
(1.7-9.3)
BUN 23 H mg/dl
(9-20)
10/24/25 10:34
10/24/25 10:34
Vital Signs
Initial and Last Documented VS:
Initial Vital Signs
Temp Pulse Resp BP Pulse Ox
36.4 C 94 20 179/100 95
10/24/25 10:03 10/24/25 10:03 10/24/25 10:03 10/24/25 10:03 10/24/25 10:03
Last Documented Vital Signs
Temp Pulse Resp BP Pulse Ox
36.4 C 94 19 168/99 96
10/24/25 10:03 10/24/25 13:45 10/24/25 13:45 10/24/25 12:00 10/24/25 13:45
<Rosa M Washington PA-C - Last Filed: 10/24/25 13:44>
MDM/Problems Addressed
Differential Diagnosis Includes:
Differential includes but is not limited to pulmonary embolism, worsening of his cryptogenic organizing pneumonia, superimposed bacterial pneumonia, COVID, flu.
Patient given 10 of dexamethasone IV on arrival. CBC obtained and reviewed and shows slight leukocytosis of 12.8. BMP within normal limits. BNP 1040. Troponin 0.017.
On arrival patient was maintaining adequate saturation on room air however he was noted to drop to 90% at rest and 86% with ambulation to the bathroom. He was subsequently placed on 2 L nasal cannula some improvement in his oxygen. Oxygen
saturation now 95%.
Given new oxygen requirements due to hypoxia and shortness of breath CT PE was obtained and shows no pulmonary embolism but rather multifocal pneumonia. Azithromycin and ceftriaxone ordered.
EKG obtained and reviewed normal sinus rhythm with no change from baseline.
Patient continues to require supplemental oxygen to maintain adequate saturations. This coupled with multifocal pneumonia seen on CT to my read appears worse than prior CT imaging patient will be admitted to the hospitalist service.
<Rosa M Washington PA-C - Last Filed: 10/24/25 13:44>
*Pulse Oximetry
SaO2: 92
Oxygen Mode of Delivery: Room air
Patient hypoxic: yes
*Critical Care Note
Total Time (30-74mins, 75-104mins- exclusive of procedures): Not Applicable
ED Attending Note
<Rosa M Washington PA-C - Last Filed: 10/24/25 13:44>
-
Portions of this chart may have been created with voice recognition software.� Occasional wrong word or��sound alike� substitutions may have occurred due to the inherent limitations of voice recognition software.
<Jack Mejia DO - Last Filed: 10/24/25 15:01>
ED Attending Note
I performed the substantive portion of visit, reviewed & personally made and approve the management plan that is documented in note by myself or DARRON.: Yes
ED Attending Note:
I discussed the patient with the resident and also reviewed the CT imaging. Markedly abnormal imaging. Was started on IV steroids and IV antibiotics. Patient is also hypoxic here.
Discharge Plan
Departure
Patient Disposition: Admit
Date of Disposition: 10/24/25
Time of Disposition: 12:32
Presentation/result/management discussed w/ accepting MD/DO: Hospitalist
Discharge Problem:
Cryptogenic organizing pneumonia, Hypoxia, Multifocal pneumonia, Shortness of breath
Interventions
Interventions:
*General Assessment Last Done: 10/24/25 10:03
*Neglect/Abuse Screening Last Done: 10/24/25 10:03
*ED COVID-19 Vaccine History Last Done: 10/24/25 10:39
*ED Influenza Vaccine History Last Done: 10/24/25 10:39
[facility] Fall Risk Assessment Tool Last Done: 10/24/25 10:38
*Risk Screen - Suicide (C-SSRS) Last Done: 10/24/25 10:38
ED- Cardiac Assessment Last Done: 10/24/25 12:10
ED- Pulmonary Assessment Last Done: 10/24/25 12:10
[2025-10-24 11:20] LABS: Troponin I 0.017 ng/ml
[2025-10-24 12:06] LABS: COVID-19 Antigen Negative (Negative)
--- NOTE | 2025-10-24 12:23 | W.PN.UPDATE ---
Update Note
Progress Note Update
This note serves as an addendum to the H&P by grocery sacker Pradip Calderon
HPI
65M
PHX: cryptogenic pneumonia, paroxysmal atrial fibrillation on Xarelto, CAD, and hypertension
- he follows with Dr. Sterling has an outpatient for cryptogenic organizing pneumonia
- came in with several days of worsening shortness of breath and productive cough
- Outpatient steroids were increased 2 days ago without improvement.
- new oxygen requirement - dropped to 86% and now on 2L.
CTC shows bilateral multifocal pneumonia
Relevant VS
Temp Pulse Resp BP Pulse Ox
97.5 F 90 19 168/99 94
10/24/25 10:03 10/24/25 12:00 10/24/25 12:00 10/24/25 12:00 10/24/25 12:00
PE
Gen: Not toxic looks well
HEENT: anicteric , moist OM
Neck: supple
Lungs: symmetric AE, No wheeze , cough with deep breathing
Cor: RRR S 1S2 , no mm
Abdomen:�soft benign
REMOTE BROADCAST TECHNICIAN: AAOD
MS: No edema
Psych: Nl mood and affect
Relevant Data
Temp Pulse Resp BP Pulse Ox
97.5 F 90 19 168/99 94
10/24/25 10:03 10/24/25 12:00 10/24/25 12:00 10/24/25 12:00 10/24/25 12:00
04/24/24 10/24/25
15:14 10:34
WBC 12.8 H
Hgb 13.3
Plt Count 225
BUN 23 H
Creatinine 0.9
eGFR > 60.00
Troponin I 0.017
[id number] Pept 985 1040
NEG Covid
NEG Flu A & B
Pending PCT
EKG report
NORMAL SINUS RHYTHM
NORMAL ECG
WHEN COMPARED WITH ECG OF 25-Apr-2024 13:56,
VENT. RATE HAS INCREASED by 31 bpm
QT HAS SHORTENED
CTC PE study
1. No evidence of pulmonary embolism.
2. Extensive bilateral consolidative opacities with surrounding groundglass opacities most pronounced in the left upper and lower lobes consistent with multifocal pneumonia.
3. Prominent mediastinal lymph nodes which are likely reactive.
Last hospitalist admission: 04/19/24 - 04/26/24
P DXS:
Cryptogenic organizing pneumonia
Hemoptysis
Resolved Acute Hypoxic Respiratory Failure possibly due to aspiration vs flash pulmonary edema vs Acute Heart Failure with Preserved Ejection Fraction
Leukocytosis steroid induced
Atrial Fibrillation with Rapid Ventricular Rate successfully Cardioverted 04/21
Appreciate cardiology input, status post successful DOC guided cardioversion on 04/21
Continue metoprolol succinate 100 mg twice daily, held Xarelto 04/24 -resume when okay with pulmonology
Coronary artery disease
Hypertension
Acute Kidney Injury Resolved
ASSESSMENT & PLAN
Pending Rx reconciliation
Multifocal PNA with CT description of extensive bilateral consolidative opacities with surrounding groundglass opacities
DDX: CAP vs. concern for cryptogenic pneumonia
- POS Hemoptysis for 3 days
- no improvement with increased PO steroid
- will switch to IV Solumedrol 40mg q8h
- Pending PCT till them c/w empiric IV
- DuoNebs PRN
- O2 support as needed if POx < 94%
- Pul consult
In NSR
HX Prx AF
S/p PVI 2011, 2012 and 2017
S/p post cardioversion 05/2018
c/w DAIRY FEED MIXING OPERATOR metoprolol succinate
- on DAIRY FEED MIXING OPERATOR Xarelto
- on Dofetilide ? ( to be reconciled )
HX CAD
- on Plavix, and statin
Benign HTN
Na 135, Nl RFTs
DVT Px: DAIRY FEED MIXING OPERATOR Xarelto
Fiull code
IP TLM
--- NOTE | 2025-10-24 12:27 | HPS.HSE ---
Family Physician
-
Family Physician: Jacinta Kenyon
Chief Complaint
-
increased shortness of breath and cough
History of Present Illness
Patient is a 65-year-old male with past medical history significant for paroxysmal atrial fibrillation, atherosclerotic heart disease, hypertension, cryptogenic pneumonia and obstructive sleep apnea who presented to [facility] ED for evaluation of
increased shortness of breath and cough with associated bloody sputum. Patient called pulmonary office and reported a few days a go the increased dyspnea, his oral steroids were increased for past 2 days with no improvement. Patient SpO2 80-90% on
RA at home that lead him to seek evaluation. He reports no home oxygen. Denies fever, chills, chest pain, nasuea, vomiting, constipation, dairrhea or urinary symptoms.
Medical History
Past Medical History
Past Medical History: Reports Other (see HPI)
Additional Past Medical History:
paroxysmal atrial fibrillation
atherosclerotic heart disease
hypertension
cryptogenic pneumonia
obstructive sleep apnea
myopericarditis
alcohol use disorder
Past Surgical History: Reports Other (see HPI)
Additional Past Surgical History:
Tonsillectomy
Bilateral knee surgeries
PVI ablation 2011, 2012 and 2018
a flutter ablation 2011
colonoscopy
Social History
Tobacco: Other (cigar)
Alcohol: Occasional
Personal:
Living: With Family
Family History
Family History: Not pertinent
Allergies / Home Medications
Allergies reflects when Allergies were last updated in [employer].
Home Medications with original date entered in [employer]
Allergy/Medication List:
Allergies
Allergy/AdvReac Type Severity Reaction Status Date / Time
No Known Allergies Allergy Verified 10/24/25 10:06
Home Medications
Lactobac no.2-Bifidobac no.1-S. thermo 112.5 billion cell capsule (Visbiome) 1 cap PO DAILY Gastrointestinal Issue 04/12/24
dorzolamide 22.3 mg-timolol 6.8 mg/mL eye drops 1 drp BOTH EYES BID Eye Condition 04/12/24
therapeutic multivitamin 1 tab PO BID Supplement 04/12/24
amlodipine 2.5 mg tablet 2.5 mg PO DAILY 10/24/25
aspirin 81 mg tablet,delayed release 81 mg PO DAILY 10/24/25
latanoprost 0.005 % eye drops 1 drp BOTH EYES BID 10/24/25
metoprolol succinate 100 mg tablet,extended release 24 hr 100 mg PO DAILY 10/24/25
prednisone 20 mg tablet 5 mg PO DAILY 10/24/25
Review of Systems
-
History Source: Patient
Constitutional: Denies Fever or Chills
EENT: Denies Sore Throat
Respiratory: Reports Cough, Hemoptysis and Trouble Breathing
Cardiac: Denies Chest Pain, Palpitations or Syncope
Abdomen/GI: Denies Abdominal Pain, Nausea, Vomiting or Diarrhea
: Denies Dysuria, Frequency or Urgency
Musculoskeletal: Denies Joint Pain
Skin: Denies Rash
Neurological: Denies Dizzy, Headache, Weakness or Numbness
Physical Exam
Vital Signs
Vital Signs
Temp Pulse Resp BP Pulse Ox
97.5 F 90 19 168/99 94
10/24/25 10:03 10/24/25 12:00 10/24/25 12:00 10/24/25 12:00 10/24/25 12:00
Physical Exam
General: Well Developed, Well Nourished, No Apparent Distress, Comfortable, Conversant and Obese
HEENT: NormoCephalic, PERRLA, Nose Appears Normal and Ears Appear Normal
Respiratory: Clear and Non Labored Respirations; No Wheezes, Rales or Rhonchi
Cardiac: S1/S2 and Regular Rhythm; No Murmur, Rub, Gallop or Peripheral Edema
GI: Soft, Non Tender, Non Distended and Normal Bowel Sounds
Musculoskeletal: No Clubbing and No Cyanosis
Skin: Warm and IV/Catheter Site
Neuro: Awake and AO x 3
Psych: Calm and Intact Judgment/Insight
Laboratory Results
-
10/24/25 10:34
10/24/25 10:34
Laboratory Results
Troponin I 0.017 ng/ml 10/24/25 10:34
Data Reviewed
-
Diagnostic Radiology: Report Reviewed by me (CXR; 1. No evidence of pulmonary embolism. 2. Extensive bilateral consolidative opacities with surrounding groundglass opacities most pronounced in the left upper and lower lobes consistent with
multifocal pneumonia. 3. Prominent mediastinal lymph nodes which are likely reactive.)
Lab Data: Labs Reviewed by me (WBC 12.8, neut 81.8, pBNP 1040)
Impression/Plan
-
IMPRESSION/PLAN:
#dyspnea, acute hypoxic respiratory insufficiency 2/2 cryptogenic pneumonia vs. bacterial pneumonia
#cryptogenic pneumonia
worsening shortness of breath and hypoxia on RA at home despite increased PO steroids
WBC 12.8, neut 81.8, pBNP 1040
Covid: negative
Influenza: negative
CXR: 1. No evidence of pulmonary embolism.
2. Extensive bilateral consolidative opacities with surrounding groundglass opacities most pronounced in the left upper and lower lobes consistent with multifocal pneumonia.
3. Prominent mediastinal lymph nodes which are likely reactive.
- Admit to telemetry
- Consult Pulmonary
- IV Solu-Medrol 40mg q8
- hold prednisone
- check procal
- continue empiric antibiotics for now
- DuoNebs PRN
- O2 to maintain SpO2 >94%
#atherosclerotic heart disease
- continue aspirin
#hypertension
- continue amlodipine and metoprolol
Code status: full code
DVT prophylaxis: SCDs
[2025-10-24] MEDS: ROCEPHIN 1000 MG IV (12:45)
[2025-10-24] MEDS: ZITHROMAX INFUSION 250 IV (12:48)
[2025-10-24 13:19] LABS: Procalcitonin < 0.05 ng/ml (0.0-0.25)
--- NOTE | 2025-10-24 14:19 | PHANOTE ---
10/24/2025, pt. states to be taking 5 mg of Prednisone daily; however, could not confirm this med. with pharmacy or ecw records.
--- NOTE | 2025-10-24 14:36 | EDCM ---
Reviewed chart and met with pt bedside in ED. Lives with his in 3 SH, 3 ESA, full flight to second floor bedroom and full bath.
Independent in ADLs, personal care and ambulation at baseline. No DME.
Pt has a history of cryptogenic PNA, Afib, CAD and HTN.
Confirms prescription coverage.
Hx HH but unsure of agency, no hx SNF
PCP: Jacinta Kenyon
Pharmacy: [facility]
Anticipate discharge home, CM will continue to follow for all discharge planning needs.
[2025-10-24] MEDS: SOLU-MEDROL PF 40 MG IV ×2 (15:48→23:56)
[2025-10-24] MEDS: TIMOPTIC 0.5% OPHTHALMIC SOLUTION 1 DROP OPHTH (20:18)
[2025-10-24] MEDS: XALATAN OPHTHALMIC SOLUTION 1 DROP BOTH EYES (20:18)
[2025-10-24] MEDS: THERAGRAN 1 TABLET PO (20:18)
[2025-10-24] MEDS: TRUSOPT 2% OPHTHALMIC SOLUTION 1 DROP BOTH EYES (20:19)
[2025-10-24] MEDS: TOPROL XL 100 MG PO (21:21)
[2025-10-25 00:04] VITALS: BP 169/105
--- NOTE | 2025-10-25 00:24 | PTCARENOTE ---
Patient`s blood pressure at 0004 was 169/105. Radha EXTERNAL AUDITOR made aware. Order placed for PRN Hydralazine for SBP >170. Patient does not complain of any pain.
[2025-10-25 03:11] VITALS: BP 149/99
[2025-10-25 07:00] VITALS: BP 164/100
--- NOTE | 2025-10-25 07:18 | W.PN.HOSP.TC ---
Today's Communication/Plan
-
awaiting pulm consult
continue iv steroid while inpatient
possible dc later in the day if okay with pulm
Assessment / Plan
Assessment / Plan
65-year-old male with past medical history significant for paroxysmal atrial fibrillation, atherosclerotic heart disease, hypertension, cryptogenic organizing pneumonia and obstructive sleep apnea presented with increased shortness of breath and
cough with associated bloody sputum
#Dyspnea, acute hypoxic respiratory insufficiency 2/2 cryptogenic organizing pneumonia vs. bacterial pneumonia
#cryptogenic organizing pneumonia
#Hemoptysis
worsening shortness of breath and hypoxia on RA at home despite increased PO steroids
pBNP 1040 on arrival
Covid: negative
Influenza: negative
CT: 1. No evidence of pulmonary embolism.
2. Extensive bilateral consolidative opacities with surrounding groundglass opacities most pronounced in the left upper and lower lobes consistent with multifocal pneumonia.
3. Prominent mediastinal lymph nodes which are likely reactive.
- Pulmonary consult pending
- IV Solu-Medrol 40mg q8
- procal negative
- DuoNebs PRN
- O2 to maintain SpO2 >94%; not requiring any supplemental o2 anymore
- currently on empiric abx for possible multifocal pna
#atherosclerotic heart disease
- continue aspirin
#hypertension
- continue amlodipine and metoprolol
Code status: full code
DVT prophylaxis: SCDs
Anticipated Discharge: Today
Subjective/Interval History
-
Date of Service: October 25, 2025
AFVSS. offers no new complaints. states that he is feeling much better and wants to go home
Objective Data
-
Labs:
Laboratory Results
10/25/25
06:37
WBC Pending
Hgb Pending
Hct Pending
Plt Count Pending
Vital Signs:
Vital Signs
Temp Pulse Resp BP Pulse Ox
98.5 F 84 17 149/99 96
10/25/25 03:11 10/25/25 03:11 10/25/25 03:11 10/25/25 03:11 10/25/25 03:11
Review of Systems
-
History Source: Patient
All other systems: Reviewed and negative
Physical Exam
-
General: Well Developed and Well Nourished
HEENT: Normocephalic
Respiratory: Clear to Auscultation and Non Labored Respirations
Cardiac: Regular Rhythm
GI: Soft and Nontender
Skin: Warm
Neuro: Awake, Alert and Oriented
Psych: Calm
Data Reviewed
-
CT Scan: Report Reviewed by me, Discussed with Physician and Discussed with Patient
Labs: Labs Reviewed by me, Discussed with Physician and Discussed with Patient
[2025-10-25 07:57] LABS: Hematocrit 38.6 % (39.0-52.0); Hemoglobin 13.2 g/dL (13.0-18.0); Mean Corp Hgb Conc. 34.2 g/dL (33.0-37.0); Mean Corpuscular Volume 84.3 fL (80.0-94.0); Platelet Count 248 10^3/uL (130-400); Red Cell Dist. Width 13.2 % (11.5-14.5)
[2025-10-25] MEDS: ZITHROMAX 500 MG PO (08:01)
[2025-10-25] MEDS: VISBIOME 1 CAP PO (08:02)
[2025-10-25] MEDS: THERAGRAN 1 TABLET PO (08:02)
[2025-10-25] MEDS: ASPIR LOW (ENTERIC COATED) 81 MG PO (08:02)
[2025-10-25] MEDS: SOLU-MEDROL PF 40 MG IV ×2 (08:02→15:07)
[2025-10-25] MEDS: NORVASC 2.5 MG PO (08:02)
[2025-10-25] MEDS: TIMOPTIC 0.5% OPHTHALMIC SOLUTION 1 DROP OPHTH (08:05)
[2025-10-25] MEDS: TRUSOPT 2% OPHTHALMIC SOLUTION 1 DROP BOTH EYES (08:06)
[2025-10-25] MEDS: XALATAN OPHTHALMIC SOLUTION 1 DROP BOTH EYES (08:14)
[2025-10-25 11:00] VITALS: BP 149/83
[2025-10-25] MEDS: STERILE WATER FOR INJECTION 10 ML IV (11:05)
[2025-10-25] MEDS: ROCEPHIN 1000 MG IV (11:05)
--- NOTE | 2025-10-25 11:22 | CON.PUL ---
Consultation
Consultation Request
Date/Time Consultation Requested: 10/24/2025 - 1506
Date/Time Consultation Performed: 10/25/2025 - 949
Requesting Provider: TE Fong
Performing Provider: Dr. Zavala
Reason for Consultation: SOB/hemoptysis
Medical History
-
Chief Complaint: SOB and coughing up blood
History of Present Illness:
65-year-old male with a past medical history of organizing pneumonia, A-fib s/p ablation and JUAN-clip (March 2025 - [facility]), MV-regurgitation s/p MV-replacement (March 2025 - [facility]), hypertension, history of pericarditis and COVID-19 who presents with SOB
and coughing up blood. He has been on prednisone 20 mg daily for over a month now however symptoms still occur despite this. In the past, he was going to start mycophenolate for recurrent organized ammonia, however this was never started as he had
open heart surgery at [facility] in March 2025, and was recovering from this. In the ER he was afebrile, with pulse rate 94, respiratory rate 20, BP 179/100, and SpO2 95% on room air. Labs showed mild leukocytosis 12.8, Hb 13.3, troponin negative at
0.017, and proBNP 1040. Flu swab negative. CTA chest showed extensive bilateral consolidative opacities with multifocal ground glass and lymphadenopathy (predominantly mediastinal). In the ER he was given ceftriaxone, Zithromax and 10 mg
Decadron. He was admitted to the hospitalist service and now pulmonary consulted for additional recommendations.
When I saw the patient, he was sitting in chair, on room air, breathing comfortably and feeling much better. His bloody phlegm production has now resolved. Procalcitonin checked and is negative at <0.05. He is currently on Solu-Medrol 40 mg IV
q8hr. He is very eager to leave the hospital.
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
pericarditis, history of COVID-19 (12/2022)
PSHx: Bilateral knee surgery, PVI (2012), tonsillectomy, ablation (2011 + 2024), history of cardioversion, MV-replacement (March 2025 - [facility])
Past Medical History
Past Medical History: Other (As per HPI)
Past Surgical History: Other (As per HPI)
Social History
Tobacco: Other (Cigars)
Alcohol: Occasional
Drug: None
Personal:
Living: With Family
Family History
Family History: Reviewed & Not Pertinent
Allergies / Home Medications
Allergies
Allergy/AdvReac Type Severity Reaction Status Date / Time
No Known Allergies Allergy Verified 10/24/25 10:06
Home Medications
�Medication �Instructions �Recorded �Confirmed �Last Taken �Type
Lactobac no.2-Bifidobac no.1-S. 1 cap PO DAILY Gastrointestinal 04/12/24 10/24/25 10/24/25 History
thermo 112.5 billion cell capsule Issue
(Visbiome)
dorzolamide 22.3 mg-timolol 6.8 1 drp BOTH EYES BID Eye Condition 04/12/24 10/24/25 10/24/25 History
mg/mL eye drops
therapeutic multivitamin 0.5 tab PO BID Supplement 04/12/24 10/24/25 10/24/25 History
Lion's Nirav 1 g PO HS 10/24/25 10/24/25 10/23/25 History
Lion's Nirav 2 g PO DAILY 10/24/25 10/24/25 10/24/25 History
amlodipine 2.5 mg tablet 2.5 mg PO DAILY 10/24/25 10/24/25 10/24/25 History
aspirin 81 mg tablet,delayed 81 mg PO DAILY 10/24/25 10/24/25 10/24/25 History
release
cordyceps 500 mg capsule 1,000 mg PO HS 10/24/25 10/24/25 10/23/25 History
cordyceps 500 mg capsule 2,000 mg PO DAILY 10/24/25 10/24/25 10/24/25 History
latanoprost 0.005 % eye drops 1 drp BOTH EYES BID 10/24/25 10/24/25 10/24/25 History
metoprolol succinate 100 mg 100 mg PO HS 10/24/25 10/24/25 10/23/25 History
tablet,extended release 24 hr
prednisone 5 mg tablet 5 mg PO DAILY 10/24/25 10/24/25 History
Review of Systems
-
History Source: Patient
All other systems: Negative unless noted
Vitals / Labs / Diagnostic Testing
Vital Signs
Temp Pulse Resp BP Pulse Ox
98.2 F 86 18 164/100 94
10/25/25 07:00 10/25/25 08:02 10/25/25 07:00 10/25/25 08:02 10/25/25 07:00
Lab Data
10/25/25 06:37
10/24/25 10:34
Microbiology
10/24/25 21:54 Urine Legionella Urinary Antigen - Final
Negative for Legionella pneumophila Serogroup 1 antigen.
A negative result does not rule out the possiblity of
Legionella infection due to other serogroups or species of
Legionella. Clinical correlation is recommended.
10/24/25 21:54 Urine Streptococcus pneumoniae Antigen (M - Final
Negative for Streptococcus pneumoniae antigen.
A negative result does not exclude infection with
Streptococcus pneumoniae. Clinical correlation is
recommended.
10/24/25 11:36 Nasal Swab Influenza Types A & B (LONG) - Final
Negative for Influenza A & B, NAAT
Negative results must be combined with clinical observations
and patient history.
Nucleic Acid Amplification test (NAAT)performed on the
[employer] platform.
Diagnostic Testing:
Physical Exam
-
HEENT: Normocephalic and Anicteric
Cardiovascular: S1/S2 and Peripheral Edema (negative)
Respiratory: Wheeze (negative), Rales (negative), Rhonchi (negative) and Non-Labored Respirations
GI: Soft, Non Distended, Non Tender and Normal Bowel Sounds
Neurology: Awake, Alert, Oriented and Tremors (negative)
Skin: Warm and Dry
General: Respiratory Distress (negative), Comfortable, Fever (negative) and Chills (negative)
Assessment
-
Assessment: 65-year-old male with a past medical history of organizing pneumonia, A-fib s/p ablation and JUAN-clip (March 2025 - [facility]), MV-regurgitation s/p MV-replacement (March 2025 - [facility]), hypertension, history of pericarditis and COVID-19 who
presents with SOB and coughing up blood. He has been on prednisone 20 mg daily for over a month now however symptoms still occur despite this. In the past, he was going to start mycophenolate for recurrent organized ammonia, however this was never
started as he had open heart surgery at [facility] in March 2025, and was recovering from this. In the ER he was afebrile, with pulse rate 94, respiratory rate 20, BP 179/100, and SpO2 95% on room air. Labs showed mild leukocytosis 12.8, Hb 13.3, troponin
negative at 0.017, and proBNP 1040. Flu swab negative. CTA chest showed extensive bilateral consolidative opacities with multifocal ground glass and lymphadenopathy (predominantly mediastinal). In the ER he was given ceftriaxone, Zithromax and 10
mg Decadron. He was admitted to the hospitalist service and now pulmonary consulted for additional recommendations.
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
2024 at [facility]), history of pericarditis, history of COVID-19 (12/2022)
Impression:
#Acute respiratory failure with hypoxia due to suspected acute organizing pneumonia recurrence
#Jud-[id number]-[id number] hemoptysis due to above
#Hx of RLL pulmonary nodule (4-5 mm) - present since 01/2022
#Mild ARMEN
#History of cryptogenic organizing pneumonia requiring prednisone with negative rheumatological workup
#Personal history of COVID-19 (12/2022)
#Alcohol use disorder
#Mitral valve regurgitation s/p mitral valve bioprosthetic replacement (March 2025 � [facility])
#Paroxysmal A-fib s/p ablation + left atrial appendage clipping (March 2025 � [facility])
#History of single-vessel CAD with TOP STOP ATTACHER of mid RCA s/p PCI in 09/2023
#Tobacco use disorder (occasional cigar use, otherwise he quit in 2006 with a [id number] history prior)
Plan:
- Patient has markedly improved since being on systemic steroids, which is typical for organized pneumonia
- Previous CTD + vasculitis panel has been negative
- He previously was going to be started on mycophenolate, however due to his open heart surgery in March 2025, this was never started
- Okay to wean down steroids to 60 mg daily and will require prolonged taper - -> 60 mg x 5 days, 50 mg x 5 days, 40 mg x 5 days, then 30 mg until patient is seen in our Pulmonary office on 11/23/2025
- Given his recurrent organized pneumonia, he should be started on steroid sparing agents with either azathioprine or mycophenolate
- If azathioprine is going to be started, his TPMT level should be checked first (thiopurine S�methyltransferase enzyme), to assure it is sufficient
- He also may require open lung biopsy to confirm organizing pneumonia prior to steroid sparing agents being started
- I will defer this to his outpatient medical clerical assistant, Dr. Sterling
- No longer having hemoptysis; continue to monitor for this and if hemoptysis recurs then keep a disposable cup at bedside to quantify amount
- If patient develops life-threatening hemoptysis, then would need bronchoscopy vs IR embolization vs CT surgery eval
- Maintain SpO2 >90-94% with supplemental O2 if needed
- Home O2 assessment checked prior to discharge - -> his SpO2 is 95% with activity today
- Incentive spirometer encouraged
- prn nebulized bronchodilators - not currently bronchospastic
- Procal is <0.05 --> doubt this is a bacterial infection. He remains non-toxic appearing and afebrile - can stop Abx
- Replete electrolytes with K>4, Mg>2
- Maintain euglycemia with goal BG >100 and <180
- DVT ppx
Patient stable for discharge from pulmonary perspective. Outpatient pulmonary office follow-up already arranged - appt on 11/23/2025 @ 9:30AM with Dr. Sterling. If patient remains hospitalized, then Pulmonary service will continue to follow along.
Total time spent today was 58 minutes for this encounter. Time includes reviewing laboratory test/imaging results, reviewing pertinent medical records, obtaining and reviewing medical history, performing an appropriate exam, ordering medications,
tests and procedures. Time also includes documentation of this encounter, coordinating patient care and communicating with other healthcare professionals. Total time does not include separately billed tests performed on this date of service.
Data:
CTA Chest 10/24/2025:
1. No evidence of pulmonary embolism.
2. Extensive bilateral consolidative opacities with surrounding groundglass opacities most pronounced in the left upper and lower lobes consistent with multifocal pneumonia.
3. Prominent mediastinal lymph nodes which are likely reactive.
TTE 06/22/2025:
1. Normal left ventricular size, wall thickness and systolic function. No regional wall motion abnormalities are seen.
2. Ejection fraction is 55-60% by visual assesment.
3. Right ventricular size and systolic function are within normal limits.
4. Indexed left atrial volume is mildly abnormal (35-41 ml/m2).
5. Bioprosthetic mitral valve replacement functioning well. Mean PG 4mmHg. Trace Mitral regurgitation.
6. Compared to a prior transesophageal echocardiogram study from 6/20/24 A bioprosthetic mitral valve is now in place and functioning well. There is no significant mitral regurgitation.
[2025-10-25 15:00] VITALS: BP 173/111
[2025-10-25 15:57] LABS: Urine Character Clear (Clear)
[2025-10-25] MEDS: APRESOLINE 10 MG IV (16:16)
[2025-10-25 16:17] LABS: Urine Squamous Cell 16-20 /LPF (Few)
[2025-10-25 16:18] LABS: Urine Red Blood Cell 0-2 /HPF (0-2); Urine White Cell 0-2 /HPF (0-5)
--- NOTE | 2025-10-25 16:55 | W.DCSUMMARY ---
Discharge Summary
Discharge Data
Date of Admission: 10/24/25
Date of Discharge: 10/25/25
-
Pending Results: No
Hospital Course
Discharging Physician : López Pack MD ; Rolando Childs MD
Disposition : Home
Primary care physician : Jacinta Kenyon
Principal Discharge diagnosis : Acute hypoxic respiratory insufficiency/bilateral pulmonary infiltrates with history of cryptogenic organizing pneumonia
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
2024 at [facility]), history of pericarditis, history of COVID-19 (12/2022)
Hospital Course : 65-year-old male with a past medical history of organizing pneumonia, A-fib s/p ablation and JUAN-clip (March 2025 - [facility]), MV-regurgitation s/p MV-replacement (March 2025 - [facility]), hypertension, history of pericarditis and COVID-19 who
presents with SOB and coughing up blood. He has been on prednisone 20 mg daily for over a month now however symptoms still occur despite this.
In the ER he was afebrile, with pulse rate 94, respiratory rate 20, BP 179/100, and SpO2 95% on room air. Labs showed mild leukocytosis 12.8, Hb 13.3, troponin negative at 0.017, and proBNP 1040. Flu swab negative. CTA chest showed extensive
bilateral consolidative opacities with multifocal ground glass and lymphadenopathy (predominantly mediastinal). In the ER he was given ceftriaxone, Zithromax and 10 mg Decadron.
Pulmonology service was consulted. Procalcitonin was checked which came back negative and antibiotics were discontinued.
He was cleared by legal process specialist for Discharge. A script of prednisone taper was sent upon discharge. He will use prednisone 60mg for 5 days, 50mg for 5 days, 40 mg for 5 days and 30 mg daily until he sees legal process specialist outpatient on 11/23/2025.
initially he required some supplemental o2 however it improved after IV steroids, Home O2 assessment checked prior to discharge , it was 95% on room air.
Pulmonology recommended given his recurrent organized pneumonia, he should be started on steroid sparing agents with either azathioprine or mycophenolate ; previously was going to be started on mycophenolate, however due to his open heart surgery in
March 2025, this was never started.
Important imaging findings : CT Chest PE Study:
IMPRESSION:
1. No evidence of pulmonary embolism.
2. Extensive bilateral consolidative opacities with surrounding groundglass opacities most pronounced in the left upper and lower lobes consistent with multifocal pneumonia.
3. Prominent mediastinal lymph nodes which are likely reactive
Procedure findings : EKG:
NORMAL SINUS RHYTHM
NORMAL ECG
Discharge Plan
-
Patient Disposition: Home (Routine Discharge)
Discharge Diagnosis/Procedures: Acute hypoxic respiratory insufficiency/bilateral pulmonary infiltrates with history of cryptogenic organizing pneumonia
Condition: Fair
Diet: No restrictions and As tolerated
Activity: No restrictions
Driving Restrictions: As prior to admission
Bathing Restrictions: None
Referrals:
Ricardo Frank MD [Active, Pulmonary Medicine] - 11/23/25 9:30 am
Jacinta Kenyon MD [Family Provider, Internal Medicine] - in less than 1 week
Additional Discharge Medication Instructions: Please take Prednisone 60mg (6 tabs of 10mg) daily for 5 days, 50mg daily for next 5 days, 40mg daily for next 5 days, continue taking 30 mg after this until you see outpatient legal process specialist Dr. Sterling
on 11/23/25 at 09:30am.
Prescriptions:
New
prednisone 10 mg tablet
60 mg PO DAILY Qty: 120 0RF
Rx Instructions:
60 mg daily for 5 Days; 50 mg daily for 5 Days; 40 mg daily for 5 Days; 30 mg daily for 15 Days
Continued
therapeutic multivitamin Tablet
0.5 tab PO BID
dorzolamide-timolol 22.3-6.8 mg/mL Drops
1 drp BOTH EYES BID
Visbiome 112.5 billion cell Capsule
1 cap PO DAILY
latanoprost 0.005 % drops
1 drp BOTH EYES BID
amlodipine 2.5 mg tablet
2.5 mg PO DAILY
aspirin 81 mg Tablet,Delayed Release (Dr/Ec)
81 mg PO DAILY
metoprolol succinate 100 mg tablet extended release 24 hr
100 mg PO HS
cordyceps 500 mg Capsule
2,000 mg PO DAILY
cordyceps 500 mg Capsule
1,000 mg PO HS
Lion's Nirav 1 g tablet
2 g PO DAILY
Lion's Nirav 1 g tablet
1 g PO HS
Discontinued
prednisone 5 mg Tablet
5 mg PO DAILY
Patient Comments:
10/24/2025, pt. states to be taking 5 mg of Prednisone daily; however, he does not fill 5 mg tablets according to pharmacy records. Could not confirm with another source.
Discharge Orders:
Discharge Patient (As Directed); Ordered 10/25/25
Ordered By: López Pack
Discharge Date and Time
Print Language: TANZANIAN
== END 2025-10-25 17:15 | disposition home or self-care (01) | DRG 198 ==
LOC: 4 WEST ACU 13:37
PROVIDERS: Nurse Practitioner Family; Surgery Trauma Surgery; ADMITTING PHYSICIAN Internal Medicine; ATTENDING PHYSICIAN Hospitalist; EMERGENCY PHYSICIAN Emergency Medicine; FAMILY PHYSICIAN Family Medicine; OTHER PHYSICIAN Internal Medicine Critical Care Medicine
DX: J84.116 Cryptogenic organizing pneumonia (principal); F17.200 Nicotine dependence, unspecified, uncomplicated; Z11.52 Encounter for screening for COVID-19; R06.89 Other abnormalities of breathing; R09.02 Hypoxemia; I25.10 Atherosclerotic heart disease of native coronary artery without angina pectoris; I10 Essential (primary) hypertension; Z79.52 Long term (current) use of systemic steroids; I48.0 Paroxysmal atrial fibrillation; Z79.01 Long term (current) use of anticoagulants; F10.10 Alcohol abuse, uncomplicated; Z79.82 Long term (current) use of aspirin
CPT/HCPCS: 71275; 80048; 81003; 81015; 83880; 84145; 84484; 85025; 85027; 87449; 87502; 87811; 87899; 93005; 96365; 96375; 99285; Q9967